=== PATIENT | male | born 1940 | race Caucasian/White ===

== ENCOUNTER → 2016-09-20 | Emergency (ER) | payer MEDICARE ==
[~2016-09-20] MED LIST: ACETAMINOPHEN650 M1; AMOXIL (BID DO875 MG PO; APRESOLINE25 MG PO; ASPIRIN LO-DOSE81 MG PO; ASPIRIN325 MG PO; ATORVASTATIN CA80 MG PO; CALCIUM ACETAT667 MG PO; CELEXA20 MG PO; CIPRO500 MG PO; COLACE100 MG PO; COREG12.5 MG PO; DETROL2 MG; DETROL2 MG PO; DIOVAN320 MG PO; DITROPAN XL5 MG PO; DULCOLAX10 MG; DULCOLAX10 MG R; FLOMAX0.4 MG PO; GLUCAGON 1 MG PE1 MG SUB-Q; GLUCAGON/GLUCAGE1 MG IM; GLUCAGON/GLUCAGE1 MG SUB-Q; GLUCOSE4 GM PO; GLYCOLAX527 GM PO; HUMALOG100 UNIT/1; HUMIBID LA (MU600 MG; HUMIBID LA (MU600 MG PO; HUMULIN R500 UNIT/M SUB-Q; HYDROCERIN)(MI236 ML TOP; HYGROTON25 MG PO; KAYEXALATE15 GM/60 M PO; LANTUS (IN100 UNIT/M SUB-Q; LASIX20 MG PO; LASIX40 MG PO; LEVEMIR100 UNIT/1 SUB-Q; LEVOTHROID (S200 MCG PO; LEVOTHROID (SY25 MCG PO; LEVOTHROID(SY175 MCG PO; LEVOTHYROXINE150 MCG PO; LIPITOR80 MG PO; LYRICA 50MG CAP50 MG PO; MILK OF MA400 MG/5 M PO; MIRALAX17 GM PO; MOTRIN800 MG PO; MYCOSTATIN OINT30 GM TOP; NEURONTIN100 MG PO; NITROSTAT0.4 MG SL; NORCO 5-325 MG1 TAB PO; NORCO 5-325 TA1 EACH; NORVASC10 MG PO; NORVASC2.5 MG PO; NORVASC5 MG PO; NOVOLIN-R100 UNIT/M; NOVOLIN-R100 UNIT/M SUB-Q; NOVOLOG100 UNIT/M SUB-Q; OCEAN NASAL) (A44 ML NOSE; OXYGEN M-15 INH; PHOSLO667 M1 PO; PHOSLO667 MG PO; PLAVIX75 MG PO; PRAVACHOL80 MG; PRAVACHOL80 MG PO; PROTONIX40 MG PO; PROVENTIL OR V6.7 GM; SENOKOT S (S1 TABLET PO; TOPROL XL 5050 MG PO; TYLENOL EXTRA500 MG PO; TYLENOL325 MG PO; VALIUM5 MG PO; VITAMIN D-32000 UNI1 PO; VITAMIN D1000 UNI1 PO; ZYLOPRIM100 MG PO; ZYLOPRIM300 MG PO; ZYRTEC10 MG
== END | disposition disaster alternative care site (69) ==
LOC: GAMB 08:51
DX: S41.112A Laceration without foreign body of left upper arm, initial encounter (principal); S41.111A Laceration without foreign body of right upper arm, initial encounter; W19.XXXA Unspecified fall, initial encounter

== ENCOUNTER → 2016-10-08 | Emergency (ER) | payer MEDICARE | END | disposition disaster alternative care site (69) | LOC: GAMB 20:48 | DX: R53.1 Weakness (principal) ==

== ENCOUNTER → 2016-10-08 | Emergency (ER) | payer MEDICARE | END | disposition disaster alternative care site (69) | LOC: GAMB 20:10 | DX: R53.1 Weakness (principal) ==

== ENCOUNTER → 2016-10-10 | Emergency (ER) | payer MEDICARE | END | disposition disaster alternative care site (69) | LOC: GAMB 23:55 | DX: R53.1 Weakness (principal); W19.XXXA Unspecified fall, initial encounter ==

== ENCOUNTER → 2016-10-19 | Outpatient (CLI) | payer MEDICARE, MEDICAID | END | disposition disaster alternative care site (69) | LOC: GAMB 23:51 | DX: R55 Syncope and collapse (principal); E11.622 Type 2 diabetes mellitus with other skin ulcer; Z79.82 Long term (current) use of aspirin; Z79.4 Long term (current) use of insulin; Z96.0 Presence of urogenital implants; Z74.09 Other reduced mobility | CPT/HCPCS: A0425; A0429 ==

== ENCOUNTER 2016-10-20 00:36 | Emergency (ER) | payer MEDICARE, MEDICAID ==
--- NOTE | ~2016-10-20 | ER ---
PATIENT'S NAME: SATYA POON [facility] AGE: 76 Y [address] ROOM: [place] [address] LOCATION: [facility] ADMIT DATE: 10/20/2016 ER/Outpatient Report DISCHARGE DATE: 10/20/2016 FAMILY PHYSICIAN: Physician, Unknown ATTENDING PHYSICIAN: Forest Mathis Time of Arrival: Admission date and time documented on the medical record. Time of Evaluation: I saw the patient at 0050 hours. CHIEF COMPLAINT: Syncopal episode. HISTORY OF PRESENT ILLNESS: This patient is a 76-year-old male, who was at home, had a syncopal episode that lasted about 10 to 15 seconds. He was moving from wheelchair to the bed with a lift and had the sudden onset of syncope. Paramedics were dispatched, they brought the patient into the emergency room for evaluation by ambulance. He did have bowel incontinence. Does have a suprapubic catheter. Blood sugar was 95. On arrival, the patient was awake, responsive. Had no chest pain, shortness of breath, or abdominal pain. He was not nauseated; had no vomiting. Does not feel lightheaded or dizzy. No recent cough, cold, flus, fever, chills, or sweats. Did not feel like anything was coming on, but does not remember what happened. The patient does have multiple medical problems. He does have insulin-dependent diabetes mellitus type 2 and hypothyroidism. He has had a CVA and TIA. No seizure. No neuro changes. Does have gout and degenerative osteoarthritis. No skin eruptions or rash, but does have some venous insufficiency. Because of diabetes, he has peripheral neuropathy, retinopathy, and nephropathy. HOME MEDICATIONS: See attached medication list. ALLERGIES: NONE. SOCIAL HISTORY: Nonsmoker. Does drink alcohol. SIGNIFICANT PAST MEDICAL HISTORY: Carotid occlusive disease; atherosclerotic ischemic heart disease with coronary artery disease; insulin-dependent diabetes mellitus type 2; nocturnal hypoxemia; obstructive sleep apnea; diabetic peripheral neuropathy, retinopathy, and nephropathy; benign prostatic hypertrophy; CVA; TIA; dyslipidemia; peripheral vascular disease; hypothyroidism; venous insufficiency; hypertension; exogenous obesity; chronic kidney disease, stage PATIENT'S NAME: SATYA POON [facility] AGE: 76 Y [address] ROOM: [place] [address] LOCATION: [facility] ADMIT DATE: 10/20/2016 ER/Outpatient Report DISCHARGE DATE: 10/20/2016 FAMILY PHYSICIAN: Physician, Unknown ATTENDING PHYSICIAN: Forest Mathis 4; chronic low back pain; degenerative osteoarthritis; and renal tubular acidosis. OPERATIONS: Bladder aspiration, suprapubic cystostomy, 4-vessel coronary bypass graft, cardiac catheterization, cataract surgery, anal surgery, right carotid endarterectomy, spinal diskectomy, and tonsillectomy. REVIEW OF SYSTEMS: All systems reviewed by me are negative with the exception of those discussed in the history of present illness. PHYSICAL EXAMINATION: VITAL SIGNS: Temperature 98, pulse 107, respirations 16, blood pressure 123/60, and O2 saturation on room air is 88% on room air. Carlos Coma Scale was 15. HEAD: Normocephalic. No abrasion, contusion, laceration, or swelling of the scalp or face. EYES: Extraocular muscles intact. PERRL. EARS, NOSE, AND THROAT: Clear. Mucous membranes moist. NECK: Negative. SPINE: Negative. LUNGS: Clear. HEART: Regular. Pulses are palpable. ABDOMEN: Obese, soft, nondistended, nontender. Active bowel tones. No organomegaly or abnormal mass palpable. EXTREMITIES: Does have skin problems on his lower extremities. No deformity. NEURO: Intact. LABORATORY DATA AND X-RAYS: Procalcitonin 0.1. ProBNP was 811. TSH was 109. CRP was 2.67. CMS was normal except for an elevated CO2 content of 33, low anion gap of 8.7, low glucose of 62, elevated BUN of 55, elevated creatinine of 2.4, low GFR of 26, magnesium 2.4, CPK was 106. Nbhgs-te-exkh cardiac enzymes were normal. White count was 8500, 77 segs, 7 lymphs, 9 monos, 6 eos, 1 baso; hemoglobin was 14.3 with hematocrit 44.1; platelet count was 237,000. PTT was 30, pro-time was 10 with an INR of 0.95. Serum acetone was negative. Sedimentation rate was 78. Venous pH was 7.51. Lactate was 1.5. EKG showed sinus rhythm. No acute ST elevation, ischemic change, or arrhythmia. Chest x-ray showed no acute infiltrate or changes. EMERGENCY DEPARTMENT COURSE: Did give the patient 1 amp of D50 IV here in the emergency department. IMPRESSION: PATIENT'S NAME: SATYA POON [facility] AGE: 76 Y [address] ROOM: [place] [address] LOCATION: ED ADMIT DATE: 10/20/2016 ER/Outpatient Report DISCHARGE DATE: 10/20/2016 FAMILY PHYSICIAN: Physician, Unknown ATTENDING PHYSICIAN: Forest Mathis 1. Syncopal episode. 2. Insulin-dependent diabetes mellitus type 2 with some hypoglycemia. 3. Hypothyroidism, TSH was 109. 4. Diabetic peripheral neuropathy, retinopathy, and nephropathy. 5. Atherosclerotic ischemic heart disease with coronary artery disease. 6. Carotid occlusive disease. 7. Peripheral vascular disease. 8. Peripheral venous insufficiency. 9. Dyslipidemia. 10. Hypertension. 11. Chronic kidney disease, stage 4. PLAN: The patient dismissed home. Observation. Activity as tolerated. Continue present home medications and care. Follow up with personal physician in 1 to 2 days. Discussion ensued with the patient and his concerning my findings and recommendations, they understand. FOREST MATHIS MD SDS/modl /[id number] d: 10/20/16629 t: 10/22/16611, OUTPATIENT REPORT
[~2016-10-20 00:36] MED LIST changes: -ACETAMINOPHEN650 M1; -CELEXA20 MG PO; -GLUCAGON 1 MG PE1 MG SUB-Q; -LEVOTHROID (SY25 MCG PO; -MOTRIN800 MG PO; -NITROSTAT0.4 MG SL; -NORCO 5-325 TA1 EACH; -PROTONIX40 MG PO; -PROVENTIL OR V6.7 GM
[2016-10-20 01:04] LABS: BICARBONATE 34.3 mmol/L (18.0-23.0); LACTATE 1.5 mEq/L (0.50-1.60); PCO2 43 mmHg (35-45); PO2 61 mmHg (80-90)
[2016-10-20 01:05] LABS: BASOPHIL # 0.1 K/uL (0.0-0.2); BASOPHIL % 0.7 %; EOSINOPHIL # 0.5 K/uL (0.0-0.5); HEMATOCRIT 44.1 % (37.0-53.0); HEMOGLOBIN 14.3 g/dL (11.0-16.0); IMMATURE GRANULOCYTE # 0.1 K/uL (0.0-0.3); IMMATURE GRANULOCYTE % 0.8 %; LYMPHOCYTE # 0.6 K/uL (0.8-4.0); LYMPHOCYTE % 6.8 %; MCH 28.7 pg (27.0-34.0); MCHC 32.4 gm/dL (32.0-36.5); MCV 88.4 fl (83.0-98.0); MONOCYTE # 0.8 K/uL (0.0-1.0); MONOCYTE % 9.1 %; MPV 9.1 fl (9.4-12.4); NEUTROPHIL # (ANC) 6.5 K/uL (1.4-9.0); NEUTROPHIL % 76.6 %; NRBC % 0 /100WBC (0-0.00); PLATELET COUNT 237 K/uL (150-450); RBC 4.99 M/uL (3.50-5.50); RDW-CV 14.2 % (11.9-14.6); WBC 8.5 K/uL (4.0-11.0)
[2016-10-20 01:21] LABS: INR - (THERAPEUTIC) 0.95 (0.92-1.07); PTT 30 SECONDS (25-32)
[2016-10-20 01:27] LABS: ALBUMIN 2.6 gm/dL (3.5-5.0); ALK PHOS 53 IU/L (33-138); ALT 22 IU/L (12-78); ANION GAP 8.7 (10.0-19.0); AST 22 IU/L (10-40); CALCIUM 9.3 mg/dL (8.5-10.5); CHLORIDE 100 mMol/L (96-110); CO2 33 mMol/L (22-32); CPK 106 IU/L (35-332); CREATININE 2.4 mg/dL (0.6-1.3); ESTIMATED GFR (MDRD EQUATION) 26; MAGNESIUM 2.4 mg/dL (1.8-2.6); POTASSIUM 3.7 mMol/L (3.7-5.1); SODIUM 138 mMol/L (135-145); TOTAL BILIRUBIN 0.4 mg/dL (0.0-1.5); TOTAL PROTEIN 6.5 g/dL (6.0-8.4)
[2016-10-20 01:28] LABS: BLOOD UREA NITROGEN 55 mg/dL (6-24)
[2016-12-22] MEDS ORDERED: CELEXA20 MG PO (16:01)
[2016-12-22] MEDS ORDERED: PROTONIX40 MG PO (16:02)
[2016-12-22] MEDS ORDERED: VITAMIN D-32000 UNI1 PO ×2 (16:03→16:04)
[2016-12-22] MEDS ORDERED: DULCOLAX10 MG R (16:08)
[2016-12-22] MEDS ORDERED: GLUCAGON 1 MG PE1 MG SUB-Q (16:08)
[2016-12-22] MEDS ORDERED: MILK OF MA400 MG/5 M PO (16:08)
[2016-12-22] MEDS ORDERED: GLUCOSE4 GM PO (16:09)
[2016-12-22] MEDS ORDERED: NITROSTAT0.4 MG SL (16:10)
[2016-12-22] MEDS ORDERED: NORCO 5-325 TA1 EACH (16:11)
[2016-12-22] MEDS ORDERED: ACETAMINOPHEN650 M1 (16:11)
[2016-12-22] MEDS ORDERED: PROVENTIL OR V6.7 GM (16:12)
[2016-12-22] MEDS ORDERED: COLACE100 MG PO (16:13)
== END 2016-10-20 04:31 | disposition disaster alternative care site (69) ==
LOC: GMED 00:36
PROVIDERS: Emergency Medicine
DX: R55 Syncope and collapse (principal); I12.9 Hypertensive chronic kidney disease with stage 1 through stage 4 chronic kidney disease, or unspecified chronic kidney disease; E11.22 Type 2 diabetes mellitus with diabetic chronic kidney disease; N18.4 Chronic kidney disease, stage 4 (severe); I73.9 Peripheral vascular disease, unspecified; I25.10 Atherosclerotic heart disease of native coronary artery without angina pectoris; N40.0 Benign prostatic hyperplasia without lower urinary tract symptoms; E03.9 Hypothyroidism, unspecified; E11.21 Type 2 diabetes mellitus with diabetic nephropathy; E11.319 Type 2 diabetes mellitus with unspecified diabetic retinopathy without macular edema; E11.42 Type 2 diabetes mellitus with diabetic polyneuropathy; E11.649 Type 2 diabetes mellitus with hypoglycemia without coma; E66.9 Obesity, unspecified; Z86.73 Personal history of transient ischemic attack (TIA), and cerebral infarction without residual deficits; Z95.1 Presence of aortocoronary bypass graft; Z79.4 Long term (current) use of insulin; Z79.82 Long term (current) use of aspirin; Z79.899 Other long term (current) drug therapy; Z90.89 Acquired absence of other organs; Z98.49 Cataract extraction status, unspecified eye; Z98.890 Other specified postprocedural states

== ENCOUNTER → 2016-10-20 | Outpatient (CLI) | payer MEDICARE, MEDICAID | END | disposition disaster alternative care site (69) | LOC: GAMB 04:30 | DX: R53.1 Weakness (principal); E11.9 Type 2 diabetes mellitus without complications; Z79.4 Long term (current) use of insulin | CPT/HCPCS: A0425; A0428 ==

== ENCOUNTER 2016-11-01 11:27 | Emergency (ER) | payer MEDICARE ==
[~2016-11-01 11:27] MED LIST changes: -ACETAMINOPHEN650 M1; -CELEXA20 MG PO; -GLUCAGON 1 MG PE1 MG SUB-Q; -LEVOTHROID (SY25 MCG PO; -MOTRIN800 MG PO; -NITROSTAT0.4 MG SL; -NORCO 5-325 TA1 EACH; -PROTONIX40 MG PO; -PROVENTIL OR V6.7 GM
[2016-11-01] MEDS ORDERED: LEVEMIR100 UNIT/1 SUB-Q (23:14)
[2016-11-02] MEDS ORDERED: LEVOTHROID (SY25 MCG PO (07:10)
[2016-12-22] MEDS ORDERED: CELEXA20 MG PO (16:01)
[2016-12-22] MEDS ORDERED: PROTONIX40 MG PO (16:02)
[2016-12-22] MEDS ORDERED: VITAMIN D-32000 UNI1 PO ×2 (16:03→16:04)
[2016-12-22] MEDS ORDERED: MILK OF MA400 MG/5 M PO (16:08)
[2016-12-22] MEDS ORDERED: DULCOLAX10 MG R (16:08)
[2016-12-22] MEDS ORDERED: GLUCAGON 1 MG PE1 MG SUB-Q (16:08)
[2016-12-22] MEDS ORDERED: GLUCOSE4 GM PO (16:09)
[2016-12-22] MEDS ORDERED: NITROSTAT0.4 MG SL (16:10)
[2016-12-22] MEDS ORDERED: NORCO 5-325 TA1 EACH (16:11)
[2016-12-22] MEDS ORDERED: ACETAMINOPHEN650 M1 (16:11)
[2016-12-22] MEDS ORDERED: PROVENTIL OR V6.7 GM (16:12)
[2016-12-22] MEDS ORDERED: COLACE100 MG PO (16:13)
== END 2016-11-01 11:32 ==
LOC: GAMB 11:27
DX: R53.1 Weakness (principal); E11.9 Type 2 diabetes mellitus without complications; Z79.82 Long term (current) use of aspirin; Z79.4 Long term (current) use of insulin
CPT/HCPCS: A0422; A0425; A0427

== ENCOUNTER 2016-11-01 11:42 | Inpatient (IN) | payer MEDICARE, MEDICAID ==
[~2016-11-01] VITALS: Ht 152.4 cm; Wt 114.4 kg
--- NOTE | ~2016-11-01 | CON ---
PATIENT'S NAME: SATYA POON [facility] AGE: 76 Y [address] ROOM: [address] [address] LOCATION: GICU ADMIT DATE: 11/01/2016 Consultation DISCHARGE DATE: FAMILY PHYSICIAN: Tom Drake MD ATTENDING PHYSICIAN: Nj Kline DATE OF CONSULTATION: 11/02/2016 REFERRING PHYSICIAN: HOLLY MARCH MD REASON FOR CONSULT: Necrotic ulcerations to bilateral legs. HISTORY OF PRESENTING ILLNESS: This is a 76-year-old male, currently admitted to [facility]. The patient presented to the emergency room on 11/01/2016. The patient was at home with his , felt like he was not arousing like normal. An ambulance was called and the patient was found to be hypoxic with oxygen saturations of 75%. He was lethargic, poorly responding and listless and was brought to the emergency room for further evaluation. The patient has a significant medical history including coronary artery disease, stroke, diabetes mellitus type 2, peripheral vascular disease, and chronic wounds on his bilateral legs that he has had treated with Wound Care as an outpatient. The patient has had Unna boot applications. History of venous insufficiency with venous stasis dermatitis. It is reported that the patient has had wounds to his legs that developed around October 12. The patient has a smoking history but he quit approximately 50 years ago and his smoking history only lasted 3 months. Vascular surgery is familiar with the patient as we performed a right carotid endarterectomy in November of 2015. It is difficult to get a history and review of systems during the examination as patient is lethargic and confused about the situation. The patient reports weakness and some shortness of breath. It is noted that the patient has mostly been nonambulatory. He denies any abdominal pain, nausea, vomiting, or diarrhea. Unable to assess for claudication as the patient has not recently been ambulating. He does report a heaviness to his legs. The patient does have a history of TIA and stroke. Denies any known history of DVT. The patient chronically with an indwelling catheter. PAST MEDICAL HISTORY: 1. Diabetes mellitus, type 2. 2. Peripheral neuropathy. 3. Diabetic retinopathy. 4. BPH. 5. CVA with right-sided hemiparalysis. 6. TIA. 7. Hyperlipidemia. PATIENT'S NAME: SATYA POON [facility] AGE: 76 Y [address] ROOM: [place] [address] LOCATION: [facility] ADMIT DATE: 11/01/2016 Consultation DISCHARGE DATE: FAMILY PHYSICIAN: Tom Drake MD ATTENDING PHYSICIAN: Nj Kline 8. Peripheral vascular disease. 9. Hypothyroidism. 10. Gout. 11. Obstructive sleep apnea. 12. Venous insufficiency. 13. Coronary artery disease. 14. Carotid artery stenosis. 15. Hypertension. 16. Morbid obesity. 17. Chronic kidney disease, stage 3 to 4. 18. Chronic low back pain. 19. Diabetic neuropathy. 20. Osteoarthritis. 21. Renal tubular acidosis. PAST SURGICAL HISTORY: 1. Previous anal surgery. 2. Bladder aspiration. 3. Placement of suprapubic catheter. 4. Coronary artery bypass grafting x4 vessels. 5. Cardiac catheterization. 6. Cataract surgery. 7. Right carotid endarterectomy with bovine pericardial patch. 8. Cervical diskectomy in C4-C5 and C5-C6. 9. Tonsillectomy. FAMILY HISTORY: Mother with history of stroke, coronary artery disease in father, and sister with diabetes. SOCIAL HISTORY: The patient lives with his , Audrey, in [place]. He quit smoking 50 years ago and approximately only 3 months of tobacco abuse per pipe. He denies any alcohol use. The patient is relatively nonambulatory. CURRENT MEDICATIONS: See medication reconciliation. The patient was on aspirin, Plavix, and atorvastatin prior to admission. ALLERGIES: CEPHALEXIN. REVIEW OF SYSTEMS: Have been completed and pertinent positives are addressed in history of presenting illness. All other review of systems are negative. PATIENT'S NAME: SATYA POON [facility] AGE: 76 Y [address] ROOM: [place] [address] LOCATION: [facility] ADMIT DATE: 11/01/2016 Consultation DISCHARGE DATE: FAMILY PHYSICIAN: Tom Drake MD ATTENDING PHYSICIAN: Nj Kline PHYSICAL EXAMINATION: VITAL SIGNS: Temperature is 97.7, heart rate 60, respiratory rate 16, oxygen saturations 95%, blood pressure 122/58. GENERAL: The patient is alert. He is disoriented to place and confused about the situation. He is lethargic but answers questions. SKIN: Pale, warm, and dry. The patient has hyperpigmentation to lower extremities. Areas of ecchymosis to upper arms. The patient also has bilateral areas of necrosis, worse on the left leg. The patient has gangrenous appearing heel that extends to his forefoot. Legs are malodorous. The patient also with a black eschar to the right lateral malleolus, right heel, and right anterior ankle. Maddy-wounds are erythemic. HEENT. Head: Normocephalic and atraumatic. Ears: Without drainage. Eyes: Sclerae white. Conjunctivae pink. Nose: Without drainage. Throat: Oral mucosa pink and moist. NECK: Without adenopathy. No carotid bruit. Trachea midline. RESPIRATORY: Clear to auscultation bilaterally, even and nonlabored. CARDIOVASCULAR: Regular rate and rhythm. No murmur or extra sounds. GASTROINTESTINAL: Bowel sounds active x4. Soft and nontender. EXTREMITIES: Unable to palpate dorsalis pedis or posterior tibialis. Pulses sound monophasic on bedside Doppler. The patient with 1 to 2+ edema bilaterally. Areas of critical limb ischemia with necrosis. NEUROLOGIC: Delayed mentation. Oriented to self. Strength is weak bilaterally to lower extremities, 2/5. DIAGNOSTICS: Chemistry: Sodium 141, potassium 4.6, chloride 99, CO2 36, BUN 77, creatinine 2.5, glucose 322. Hematology: White blood cell count 15.1, hemoglobin 12.7, hematocrit 41.2, platelets 208. Procalcitonin 1.33. Hemoglobin A1c 11.8. IMPRESSION AND PLAN: Bilateral lower extremity gangrene. The patient is admitted for acute encephalopathy and acute hypoxic respiratory failure. The patient has mixed venous and arterial disease. At this point in time, we would be unable to salvage the patient's left leg due to extent of gangrene and infection. The patient will require a left kqhse-ahi-pofh amputation. We have discussed this with the patient's over the phone and she is in agreement with this plan. Dr. March has met with the and the patient and discussed risks and benefits. The patient will also have debridement of right leg necrotic areas in hopes to save this extremity as he has infection bilaterally. The patient has continued on IV antibiotics. He is to remain n.p.o. and plan for surgery today with Dr. March. After surgery, we will move forward with arterial studies of the right lower extremity for better understanding of the extent of peripheral vascular disease. I would recommend resuming Plavix, aspirin, and atorvastatin while in the hospital. The patient with known venous insufficiency, however, due to possible severity of PATIENT'S NAME: SATYA POON [facility] AGE: 76 Y [address] ROOM: [place] [address] LOCATION: [facility] ADMIT DATE: 11/01/2016 Consultation DISCHARGE DATE: FAMILY PHYSICIAN: Tom Drake MD ATTENDING PHYSICIAN: Nj Kline peripheral vascular disease, this makes it difficult to continue compressing. Thank you for your consultation and for allowing us to participate in the care of this patient. TERI RANDOLPH SAMS FOR HOLLY MARCH MD TO/modl /[id number] d: 11/02/16 1510 t: 12/16/16 1720, CONSULTATION REPORT
--- NOTE | ~2016-11-01 | OR ---
PATIENT'S NAME: SATYA POON [facility] AGE: 76 Y [address] ROOM: [address] [address] LOCATION: [facility] ADMIT DATE: 11/01/2016 OR/Procedure Report DISCHARGE DATE: FAMILY PHYSICIAN: Tom Drake MD ATTENDING PHYSICIAN: Nj Kline SURGEON: Gary March MD CERAMIC RESTORER: DATE OF PROCEDURE: 11/02/2016 PREOPERATIVE DIAGNOSIS: Necrotic left leg as well as necrotic right foot. PROCEDURE: Left above-knee amputation and right foot debridement. GROUP DIRECTOR: Medical student, Jeanie cole. ANESTHESIA: General. ESTIMATED BLOOD LOSS: 500 mL. OPERATIVE FINDINGS: Healthy flaps on the BKA side and on the right foot, extensive infection likely down to bone. The patient will likely require an amputation of this side as well. DESCRIPTION OF PROCEDURE: The patient was brought to the operating room and placed supine on the operating table, placed under general anesthesia. Prepped and draped in a sterile manner. The patient had received antibiotics on the floor. Preoperative time-out was performed. We began by first prepping and draping for the above-knee amputation of the left. We then made a standard fishmouth incision. We used a Bovie cautery to transect all soft tissue. We identified all small vascular structures which were then ligated and transected. We then identified the superficial femoral artery and vein which were then suture ligated with Vicryl ties separately. We then transected the sciatic nerve and then removed all the posterior soft tissue using Bovie cautery. We then used a periosteal elevator to remove the soft tissue from the bone and then transected the bone with a reticulating saw. We then copiously irrigated the wound. We achieved hemostasis with suture ligatures and then reapproximated the anterior and posterior flaps using 2-0 Vicryl. Skin was closed with randee. We then covered this wound sterilely and then removed the drapes and then prepped and draped the right foot the patient had a necrotic lesion on the dorsum of the foot, the heal, and then the lateral malleolus aspect. We sharply debrided all soft tissue with necrotic tissue and it appeared as though this infection was going to the bone we removed as many is as much tissue as we could we took cultures we then we then still the wounds with Dakin-soaked solution and wrapped in Kerlix and an Brigido. The patient tolerated the procedure well and transferred to the recovery PATIENT'S NAME: SATYA POON [facility] AGE: 76 Y [address] [place]: [id number] [place] [address] LOCATION: [facility] ADMIT DATE: 11/01/2016 OR/Procedure Report DISCHARGE DATE: FAMILY PHYSICIAN: Tom Drake MD ATTENDING PHYSICIAN: Nj Kline room and to the Surgical ICU. GARY MARCH MD FKJude/modl /[id number] d: 11/02/162239 t: 11/08/161811, OPERATIVE SUMMARY
--- NOTE | ~2016-11-01 | CON ---
PATIENT'S NAME: SATYA POON [facility] AGE: 76 Y [address] ROOM: [address] [place], [place] [address] LOCATION: GICU ADMIT DATE: 11/01/2016 Consultation DISCHARGE DATE: FAMILY PHYSICIAN: Tom Drake MD ATTENDING PHYSICIAN: Nj Kline DATE OF CONSULTATION: 11/03/2016 REFERRING PHYSICIAN: HOLLY MARCH MD This is a [facility] Nephrology consultation. REASON FOR CONSULTATION: Fluid overload. HISTORY OF PRESENT ILLNESS: This is a 76-year-old male patient with a history of hypertension, diabetes mellitus, poorly-controlled, CKD, stage 4 with diabetic nephropathy, chronically noncompliant patient who is admitted with a diabetic foot ulceration of the left foot. The patient is status post left munxa-crq-thyx amputation with Dr. March on 11/02/2016 at the time of exam. The patient does also now present with right foot infection possibly requiring a right amputation in the near future. The patient's baseline creatinine is between 2.4 and 2.5. The patient's creatinine on admission was elevated to 2.9 and now is improved to 1.9. Echocardiogram was performed showing severe right heart failure with pulmonary pressures of 45 mmHg. Nephrology has been consulted for the patient's fluid volume overload. The patient continues to have reasonable urine output of approximately 3 L in the last 24 hours. He does however to be net positive. At the time of exam, the patient is confused and lethargic. He does awaken his eyes and appropriately respond when called. He is currently on Dilaudid for pain as well as Lyrica that he was prescribed as an outpatient. This is being held now. PAST MEDICAL HISTORY: As listed above includin. Coronary artery disease. 2. Chronic diastolic congestive heart failure. 3. Obstructive sleep apnea. 4. Morbid obesity. 5. Type 2 diabetes, poorly-controlled. 6. Essential hypertension. 7. History of CVA. 8. BPH. 9. Peripheral vascular disease, status post left AKA. 10. TIA. 11. Hyperlipidemia. 12. Hypothyroidism. 13. Gout. 14. Venous insufficiency. 15. Carotid artery stenosis. 16. CKD, stage 4. 17. Chronic low back pain. 18. Neuropathy. 19. Diabetic nephropathy. 20. Osteoarthritis. 21. History of renal tubular acidosis.PATIENT'S NAME: SATYA POON [facility] AGE: 76 Y [address] ROOM: [place] [address] LOCATION: GICU ADMIT DATE: 11/01/2016 Consultation DISCHARGE DATE: FAMILY PHYSICIAN: Tom Drake MD ATTENDING PHYSICIAN: Nj Kline PAST SURGICAL HISTORY: 1. Anal surgery. 2. Bladder aspiration. 3. Placement of suprapubic catheter. 4. Coronary artery bypass grafting surgery x4 vessels. 5. Left heart catheterization. 6. Cataract surgery. 7. Right carotid endarterectomy with bovine pericardial patch. 8. Spinal diskectomy. 9. Tonsillectomy. 10. Left vcrqx-oyl-mdqo amputation. FAMILY HISTORY: Reviewed and is noncontributory. There is no history of renal disease or dialysis. SOCIAL HISTORY: The patient does live at home with his . She is his primary caregiver. He is a past smoker and quit approximately 50 years ago. Denies any illicit drug use or alcohol use. He is nonambulatory at home. ALLERGIES: CEPHALEXIN. CURRENT HOME MEDICATIONS: Are reviewed: 1. Aspirin 81 mg daily. 2. Colace 100 mg twice a day. 3. Coreg 25 mg twice a day. 4. Lyrica 50 mg twice a day. 5. Norvasc 5 mg daily at bedtime. 6. Plavix 75 mg daily. 7. Oxygen. 8. Zyloprim 300 mg daily. 9. PhosLo 667 mg twice a day with food. 10. Vitamin D3 2000 units daily. 11. Atorvastatin 80 mg daily. 12. Lasix 40 mg daily in the morning. 13. Levemir 65 units subcu every morning. 14. Levothyroxine 225 mcg daily. 15. NovoLog 30 units subcu t.i.d. with meals. 16. Ditropan 10 mg daily. 17. MiraLAX 17 g daily. 18. Levemir 55 units subcu every night.PATIENT'S NAME: SATYA POON [facility] AGE: 76 Y [address] ROOM: [place] [address] LOCATION: GICU ADMIT DATE: 11/01/2016 Consultation DISCHARGE DATE: FAMILY PHYSICIAN: Tom Drake MD ATTENDING PHYSICIAN: Nj Kline REVIEW OF SYSTEMS: Unable to obtain a full review of systems due to the patient's current cognitive status. He is quite somnolent. Family is unable to offer any other concerns other than what is listed in the HPI. PHYSICAL EXAMINATION: VITAL SIGNS: Blood pressure is 109/53, pulse 81, respirations 19, temp 97.8, and sats are 92% on 5 L nasal cannula. GENERAL: On exam, this is an obese white male who is somnolent. He does reorient when he is awakened. HEENT: His head is normocephalic and atraumatic. Nose: Midline. Mouth: Oral mucosa is dry. Lips are peeling. NECK: Soft and supple, thick. LUNGS: Lung sounds are diminished in the bases bilaterally. The patient is on 3 L nasal cannula. CARDIOVASCULAR: Distant heart tones noted with regular S1 and S2. Unable to appreciate any murmurs, rubs, or thrills. ABDOMEN: Obese. Bowel sounds are positive. EXTREMITIES: Left dsblq-ekn-pmsi amputation and right lower extremity dressing is applied with clean, dry, and intact. LABORATORY DATA: Hemoglobin 8.8, hematocrit 28.5, WBC is 11.1, and platelets 201. Sodium 149, potassium 4.1, chloride is 111, CO2 is 33, BUN is 70, creatinine 1.9, and glucose is 201. ASSESSMENT AND PLAN: 1. Jkstr-yj-pxpecil diastolic heart failure. The patient does appear to be hypervolemic on exam. The patient's acute kidney injury has improved after his left qvpaj-mwr-abur amputation. Creatinine was 2.9, is now down to 2.1, now 1.9. We will use a small-dose of diuretic tonight and monitor his in's and out's closely. We will place him on daily weights and monitor his fluid balance. We will closely monitor his renal function in the interim. We will obtain a urinalysis for urine potassium, urine sodium, and urinary creatinine. We will also obtain a protein-creatinine ratio secondary to his history of diabetic nephropathy. Further recommendations will be forthcoming. 2. Peripheral vascular disease, status post left phpmp-bpo-dqdc amputation per Dr. March. The patient is currently on vancomycin for antibiotic therapy. He is also taking meropenem. We do caution to monitor his creatinine closely as he presented with acute kidney injury. Infectious Disease was consulted and will be seeing later today. 3. Diabetes mellitus type 2. The patient is to continue his Levemir as previously prescribed. This patient has been seen and assessed by Dr. Reina. His care is being conducted in consultation with Dr. Reina as well as me. We will plan further recommendations as they are forthcoming. SHANAE CURRY DNP, GARAGE MANAGER FOR [facility] KEVIN REINA MD ENS/modl /[id number] d: 11/04/16 0023 t: 12/17/16 0947, CONSULTATION REPORT
--- NOTE | ~2016-11-01 | DS ---
PATIENT'S NAME: SATYA POON [facility] AGE: 76 Y [address] ROOM: [address] [place], [place] [address] LOCATION: [facility] [place] ADMIT DATE: 11/01/2016 Discharge Summary DISCHARGE DATE: 12/08/2016 FAMILY PHYSICIAN: Tom Drake MD ATTENDING PHYSICIAN: Nj Kline DISCHARGE DIAGNOSES: 1. Sepsis secondary to left lower extremity gangrene, status post left above- the-knee amputation. 2. Right foot gangrene and critical limb ischemia, status post debridement with wound VAC placement. 3. Right foot osteomyelitis. 4. Peripheral vascular disease. 5. Diabetes mellitus type 2, with hyperglycemia. 6. Obstructive sleep apnea, noncompliant with CPAP. 7. Chronic kidney disease stage 3. 8. Acute on chronic diastolic congestive heart failure. 9. Physical deconditioning. 10. Chronic hypoxic respiratory failure. 11. Essential hypertension. CONSULTING PHYSICIANS: Dr. March, Dr. Reina, and Wound Care. PROCEDURES PERFORMED: 1. Left lwsjt-bcu-ehqb amputation done 11/02/2016. 2. Right foot debridement done 11/02/2016. 3. Aortogram with right lower extremity angiogram. 4. Anterior tibial and posterior tibial occlusions recanalized and angioplastied done 11/09/2016. 5. Wound VAC application of right lower foot. HOSPITAL COURSE: Please refer to admitting history and physical as dictated by Dr. Kline. Briefly, the patient was admitted to [facility] with acute hypoxic respiratory failure and acute encephalopathy. He is noncompliant with the CPAP at home. He was started on supplemental oxygen. His acute encephalopathy did improve with oxygen. He was found to have acute on chronic diastolic congestive heart failure. He was started on IV Bumex. He was also noted to have acute kidney injury on chronic kidney disease stage III. Suprapubic catheter was continued. Renal ultrasound was obtained. Due to the patient's leg ulcers, Wound Care and Vascular Surgery were consulted. Echocardiogram showed an EF of 60% to 65%. The patient was found to have hyperglycemia with his diabetes mellitus. Sugars gradually came down throughout his stay with titration of medications. Due to the patient's left lower extremity gangrene, he was started on IV meropenem. Heparin was used for DVT prophylaxis. Vancomycin was then added. PATIENT'S NAME: SATYA POON [facility] AGE: 76 Y [address] ROOM: [id number] [place], [place] [address] LOCATION: [facility] [place] ADMIT DATE: 11/01/2016 Discharge Summary DISCHARGE DATE: 12/08/2016 FAMILY PHYSICIAN: Tom Drake MD ATTENDING PHYSICIAN: Nj Kline Diuresis was performed. Dr. March did see the patient and felt he was unable to salvage the left leg. Therefore, isvaa-qtl-ddwp amputation and debridement of a right lower extremity wound took place on 11/02/2016. Postoperatively, he did have hypotension. Antibiotics were continued. He was transferred to the ICU for his hypotension. His blood pressures did gradually improve. He was able to be weaned off vasopressors. He was continued on Plavix and aspirin for his peripheral vascular disease. Due to his fluid volume overload and acute kidney injury, Renal consultation was obtained. They did follow the patient throughout his stay. Infectious Disease also followed the patient throughout his stay. He was gradually diuresed. The patient did require a unit of packed red blood cells postoperatively. Would cultures from surgery did grow E coli and Enterobacter and Streptococcus agalactiae Group B. His meropenem was stopped. He was placed on Rocephin. Pain gradually improved. The patient did continue to refuse CPAP when asleep. Therefore, oxygen was used to keep his saturations greater than 90%. Speech Therapy did see him and recommended nectar-thick diet. He on 11/07/2016, did develop decreased respiratory rate and somnolence. He was given Narcan. Narcotics were discontinued. He was noted to have worsening leukocytosis that was questionable about aspiration versus the lower extremity wound. Aortogram and right leg angiogram were performed on 11/09/2016. Tramadol was used for pain. Physical Therapy and Occupational Therapy were consulted. The patient did stabilize, his kidneys did improve, and creatinine was stable. His hyperglycemia did improve with titration of his insulin dosages. He was not able to be able to return home. Therefore, care management did work with the patient and family for placement. Paperwork did need to be obtained, which did hinder discharge to a half-way facility. The patient's mental status did improve. He was awake, alert, and oriented. He is able to wean off oxygen during the day by discharge. He was started on citalopram daily. IV antibiotics were discontinued. He was started on Levaquin 750 mg p.o. every 48 hours. Wound Care continued to follow throughout his stay and manage the wound VAC to the right lower extremity. Infectious Disease did see the patient, recommended to continue Levaquin until 12/14/2016, at which time it can be discontinued. Gradually, the patient improved. On 12/08/2016, the patient was awake, alert, and oriented x3. His vital signs were stable. He is no longer requiring oxygen. Placement was found at [facility] in [place]. It was recommended that he follow up with Dr. Drake in 5 days. Wound care in 3 weeks with Mini Davidson APRN to see at the same time, Infectious Disease at [facility] in 2 weeks, and Dermatology for left arm lesion. LABORATORY DATA: Sodium remained stable throughout his stay. Potassium was intermittently replaced on the day of discharge 4.3, calcium 9.3, BUN 85 on admit and 36 prior to discharge. Creatinine 2.0 on admit. It did go as high as 2.5, prior to discharge 1.9. Alkaline phosphatase 55, AST 19, ALT 15, phos 3.6, GFR 33 at discharge. Troponin 0.126. ProBNP 7812. WBC is 15.1 on admit, prior to discharge 9.6; hemoglobin dropped as low as 6.9, prior to discharge 9.6; hematocrit 30.9; platelets 179. C. diff negative. Urine: Kecia PATIENT'S NAME: SATYA POON [facility] AGE: 76 Y [address] ROOM: [address] [address] LOCATION: [facility] [place] ADMIT DATE: 11/01/2016 Discharge Summary DISCHARGE DATE: 12/08/2016 FAMILY PHYSICIAN: Tom Drake MD ATTENDING PHYSICIAN: Nj Kline parapsilosis, right foot culture, Enterobacter aerogenes, E coli, Streptococcus agalactiae Group B. RADIOLOGY REPORTS: CT of the head, mild periventricular small vessel ischemic changes and remote-appearing right basal ganglia lacunar infarct. No acute cortical ischemia or hemorrhage. Ultrasound of the kidney showed no findings of renal collecting system obstruction. Chest x-ray done 11/27/2016 showed mild bibasilar atelectasis or consolidation. DISCHARGE INSTRUCTIONS: The patient will be discharged to [facility] in [place], Dr. Drake. Dr. March to continue to follow. FOLLOWUP APPOINTMENTS: 1. Dermatology: Indication: Left arm lesion per choice of the patient. 2. Dr. Drake in 5 days. 3. Wound care in 3 weeks with Mini Davidson APRN, to see at the same time. 4. Infectious Disease at [facility] in 2 weeks. DIET: Diabetic, nectar liquids. WEIGHTBEARING: Full lift. THERAPIES: 1. PT, OT, ST to evaluate and treat as indicated. 2. Oxygen as needed to keep saturations greater than 90%. 2 L when asleep. 3. BMP, CBC 12/10/2016, results to Dr. Drake. TSH in 6 weeks. 4. Continue chronic indwelling suprapubic catheter. 5. See Wound Care notes. Reposition every 2 hours. Aloe Turon q.i.d. to buttocks. Iris cushion and chair. Elevate heels off bed services. Rehab potential is poor. Discharge potential is poor. DISCHARGE MEDICATIONS: 1. Allopurinol 300 mg p.o. daily. 2. Aspirin 81 mg p.o. daily. 3. Plavix 75 mg p.o. daily. 4. Atorvastatin 80 mg p.o. daily. 5. PhosLo 667 mg p.o. daily. 6. PhosLo 667 mg twice daily. 7. Coreg 12.5 mg p.o. twice daily, hold if systolic blood pressure is less than 110 or heart rate is less than 60. 8. Celexa 20 mg p.o. daily. 9. Lasix 20 mg p.o. daily. 10. NovoLog moderate sliding scale. 11. NovoLog 15 units subcu 3 times daily with meals. PATIENT'S NAME: SATYA POON [facility] AGE: 76 Y [address] ROOM: [address] [place] [id number] LOCATION: [facility] [place] ADMIT DATE: 11/01/2016 Discharge Summary DISCHARGE DATE: 12/08/2016 FAMILY PHYSICIAN: Tom Drake MD ATTENDING PHYSICIAN: Nj Kline 12. Levemir 26 units subcu every morning. 13. Levemir 40 units subcu q.h.s. 14. Levaquin 750 mg p.o. every 48 hours, stop after 12/14/2016 dose. 15. Levothyroxine at 220 mcg p.o. daily. 16. Protonix 40 mg p.o. daily. 17. MiraLAX 17 g p.o. twice daily. 18. Tylenol 650 mg p.o. every 4 hours as needed for pain. 19. Wellington 5/325 one tablet p.o. every 4 hours as needed for pain. 20. Dulcolax suppository 10 mg rectally every day p.r.n. constipation. 21. Benadryl 25 mg p.o. q.h.s. p.r.n. 22. Colace 100 mg p.o. twice daily as needed for constipation. 23. Glucagon 1 mg subcu for hypoglycemia. 24. Glucose 16 g p.o. for hypoglycemia. 25. Nitrostat 0.4 mg sublingual as needed. 26. Biotene mouthwash as needed. 27. Albuterol 2.5 mg inhalation every 4 hours as needed for shortness of breath. 28. Oxygen 2 L when asleep. 29. Vitamin D3 2000 units p.o. daily. 30. Ditropan 10 mg p.o. daily. Thank you for allowing us to participate in the care of this patient as he has been hospitalized at [facility]. GUILLE FINN APRN FOR MD TOMAS MCKEON/oziell /[id number] CC: MD Gary Herrera MD Abhisekh Sinha Ray, MD d: 12/09/16 0740 t: 12/14/16 1512, DISCHARGE SUMMARY
--- NOTE | ~2016-11-01 | CON ---
PATIENT'S NAME: SATYA POON [facility] AGE: 76 Y [address] ROOM: [place] [address] LOCATION: GICU ADMIT DATE: 11/01/2016 Consultation DISCHARGE DATE: FAMILY PHYSICIAN: Tom Drake MD ATTENDING PHYSICIAN: Nj Kline DATE OF CONSULTATION: 11/02/2016 REFERRING PHYSICIAN: Dr. Steward. REASON FOR CONSULT: Lower leg necrotic ulcers. HISTORY OF PRESENT ILLNESS: This is a 76-year-old male patient who was admitted to [facility] with sepsis. I am familiar with the patient and I saw him last week. He has a significant history of chronic diastolic congestive heart failure, peripheral vascular disease, CAD, and type 2 diabetes mellitus. He was brought to [facility] due to poor responsiveness and hypoxia. He notes he has been going downhill for the last couple of weeks. He is currently nonambulatory. Wound onset was October 12, 2016. Previously, we had been wrapping his legs with Unna boots and offloading with Podus footdrop boots. The patient does complain of lower leg pain, but is unable to rate it on a 0-10 scale. He is quite confused and did not know he was in the hospital. He notes weakness. He admits to shortness of breath. He has a suprapubic catheter. He is currently afebrile. PAST MEDICAL HISTORY: Coronary artery disease, chronic diastolic congestive heart failure, obstructive sleep apnea, morbid obesity, type 2 diabetes mellitus, essential hypertension, history of CVA, BPH, peripheral vascular disease, TIA, hyperlipidemia, hypothyroidism, gout, venous insufficiency, carotid artery stenosis, chronic kidney disease stage 3-4, chronic low back pain, neuropathy, osteoarthritis, and renal tubular acidosis. PAST SURGICAL HISTORY: Anal surgery, bladder aspiration, placement of suprapubic cath, coronary artery bypass grafting x4 vessels, cardiac catheterization, cataract surgery, right carotid endarterectomy with bovine pericardial patch, spinal diskectomy, and tonsillectomy. FAMILY HISTORY: Significant for coronary artery disease. PATIENT'S NAME: SATYA POON [facility] AGE: 76 Y [address] ROOM: [place] [address] LOCATION: GICU ADMIT DATE: 11/01/2016 Consultation DISCHARGE DATE: FAMILY PHYSICIAN: Tom Drake MD ATTENDING PHYSICIAN: Nj Kline SOCIAL HISTORY: The patient lives with his , Audrey, in [place]. 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 He quit smoking over 50 years ago. He denies alcohol use. He is nonambulatory. ALLERGIES: CEPHALEXIN. CURRENT MEDICATIONS: Please refer to the medication administration record. REVIEW OF SYSTEMS: I am unable to fully complete due to the patient being slightly disoriented. Please see HPI for further details. PHYSICAL EXAMINATION: VITAL SIGNS: Temperature 97.7, pulse 60, respirations 16, blood pressure 122/58, pulse oximetry 95% on 3 L. Height 5 feet 9 inches and weighs 122.9 kg. GENERAL: The patient is lethargic and slightly disoriented. He reorient when I told him he was in the hospital. Strong necrotic ulcer smell coming from lower legs. HEENT: Head: Normocephalic. Anicteric sclerae. Oral mucosa dry. Lips peeling. NECK: Obese. ABDOMEN: Soft. No groin fold rash. EXTREMITIES: Thready pedal pulses via Doppler. +1 pitting edema to ankles. Capillary refill intact. Hyperkeratotic lesions to toes. Some mycotic toenails. Dark hemosiderin staining to lower extremities. SKIN: Multiple necrotic ulcers noted. To the patient's left plantar foot from his second to fifth metatarsal head, he has a necrotic wound that measures 8.5 cm width x 7.0 cm length x 0.2 cm depth. Wound bed is 95% eschar with 5% yellow slough. Periwound is peeling. A small amount of bloody exudate. To the patient's left heel & foot, he has a large eschar area that measures 9.5 cm width x 14.0 cm length. The entire wound bed is covered with dry, hard eschar. Slightly fluctuant to touch. No exudate. Periwound peeling. To the patient's left dorsal foot, he has 5 small deep tissue injury purple areas that are closed. To the patient's left lower extremity anterior meyer, he has an ulcer that measures 4.0 cm width x 6.5 cm length x 0.2 cm depth. The wound bed is 50% yellow slough with 50% moist pink tissue. Periwound is intact with venous staining. Moderate amount of serosanguineous exudate. To the patient's right dorsal foot close to his ankle, he has a necrotic ulcer that measures 8.5 cm width x 1.7 cm length x 0.3 cm depth. Wound bed is a mixture of yellow slough and soft brown necrosis. Periwound is PATIENT'S NAME: SATYA POON [facility] AGE: 76 Y [address] ROOM: [address] [place], [place] [address] LOCATION: [facility] ADMIT DATE: 11/01/2016 Consultation DISCHARGE DATE: FAMILY PHYSICIAN: Tom Drake MD ATTENDING PHYSICIAN: Nj Kline slightly peeling. Small yellow exudate. To the patient's right lateral malleolus area, his wound measures 5.0 cm width x 6.3 cm length x 0.3 cm depth. Wound bed is hard, black eschar with 10% yellow slough around the distal perimeter. Periwound is erythemic, scant yellow exudate. To the patient's right lateral lower extremity, he has an ulcer that measures 1.5 cm width x 3.7 cm length x 0.3 cm depth. Wound bed is covered with yellow slough. Periwound is erythemic, draining a small amount of yellow exudate. To the patient's right lateral foot, he has 2 areas of deep tissue injury that are slightly fluctuant to touch. The patient's right heel eschar measures 4.0 cm width x 3.0 cm length x 0.2 cm depth. Periwound is slightly erythemic and peeling. No drainage. To the patient's right sacrum, he has a pressure ulcer that measures 2.0 cm width x 3.5 cm length x 0.3 cm depth. Wound bed is 70% yellow slough and soft brown necrosis with 30% moist pink tissue at the perimeter. Periwound is intact with blanchable erythema. No induration or fluctuance. Moderate amount of serosanguineous exudate. To the patient's right iliac crest/low back area he appears to have an open area. This was originally a deep tissue injury, but is now open. Wound bed measures 2.0 cm width x 0.5 cm length x 0.2 cm depth. Wound bed is maroon. Periwound intact. The patient's right calf measures 36.0 cm and right ankle 23.0 cm. The patient's left calf measures 37.0 cm and left ankle 23.0 cm. The patient's suprapubic catheter site has a pressure ulcer that is mostly yellow slough with a small amount of moist pink tissue. Scant serous exudate. Periwound intact, but slightly macerated. LABORATORY DATA: White blood cell count 15.1, hemoglobin 12.7, hematocrit 41.2, platelets 208. Sodium 141, potassium 4.6, chloride 99, bicarb 36, BUN 77, creatinine 2.5, glucose 322. GFR 24. ProBNP is 7812. Blood cultures, no growth to date. ASSESSMENT AND PLAN: Again, this is a 76-year-old male patient who was admitted to [facility] with sepsis. Wound Care consulted for multiple necrotic lower leg ulcers. 1. Right and left lower extremity necrotic wounds as listed above. Significant decline since I saw the patient last week. Wound beds are now necrotic & odorous. The patient has thready pulses. This appears to be a gangrenous case. Discussed with Dr. Steward. Consulted Dr. March for further evaluation. The patient will most likely need an amputation. For now, we covered the ulcers with dry gauze and Kerlix. We will offload with Podus footdrop boots. 2. Right sacral stage III full-thickness pressure ulcer, present on admission. Down to the subcutaneous layer. We will initiate pressure relief measures turning the patient in bed q.2 hours side to side. Nursing can apply Aloe Rufus q.i.d. and p.r.n. to the site. Dietary consult ordered. PATIENT'S NAME: SATYA POON [facility] AGE: 76 Y [address] ROOM: [place] [address] LOCATION: [facility] ADMIT DATE: 11/01/2016 Consultation DISCHARGE DATE: FAMILY PHYSICIAN: Tom Drake MD ATTENDING PHYSICIAN: Nj Kline 3. Suprapubic catheter device related full-thickness pressure ulcer. Wound bed is down to the subcutaneous layer. Tube stabilized. I instructed nursing to apply a fenestrated hydrocolloid sponge. 4. Acute encephalopathy secondary to hypoxia. Hospitalist is managing. The patient has significant wounds with obvious gangrene. He has also gone downhill in the last week since I have last seen him. I wish him good luck, but unfortunately he appears to have a poor prognosis. WILLARD RAO APRN FOR MD JAMEY JENKINS/siria /[id number] d: 11/03/16925 t: 12/16/16 1723, CONSULTATION REPORT
--- NOTE | ~2016-11-01 | CON ---
PATIENT'S NAME: SATYA CASTRO [facility] AGE: 76 Y [address] ROOM: [address] [place], [place] [address] LOCATION: GICU ADMIT DATE: 11/01/2016 Consultation DISCHARGE DATE: FAMILY PHYSICIAN: Tom Drake MD ATTENDING PHYSICIAN: Nj Kline DATE OF CONSULTATION: 11/03/2016 REFERRING PHYSICIAN: HOLLY BROWN MD REASON FOR VISIT: Gangrene, bilateral lower extremities, and sepsis. HISTORY: Mr. Castro is a 76-year-old male who has known history of vascular disease who presented to the hospital on 11/01/2016 with encephalopathy. He apparently had not been doing well for a while. Had some pressure ulcers on his legs and had been [facility], but he started to become more confused and not able to get aroused. He had not been compliant with his CPAP at home. In the emergency room, he was notably hypoxemic and confused. He was admitted to the hospital. There was not a clear source of sepsis but he was started on IV antibiotics. Apparently over time, his legs began to look worse and more necrotic and black. He was seen by vascular surgery and noted that his left leg was not salvageable and he had a right foot wound that went down into the bone. He underwent a left-sided AKA yesterday and a debridement of the right foot. He is a little better today, able to arouse, having pain in both of his legs. He is making more sense now. He has received a dose of vancomycin and he is on meropenem. His cultures have not shown anything as of yet. Infectious Disease has been asked to see him. PAST MEDICAL HISTORY: Significant for known peripheral vascular disease, type 2 diabetes, diastolic heart failure, cerebrovascular disease. He has had a CEA in the past, obstructive sleep apnea, morbid obesity, hypertension. He has had coronary disease with CABG, BPH, chronic venous stasis. MEDICATIONS: Reviewed. He has received a dose of vancomycin and he is on meropenem. FAMILY HISTORY: Significant for heart disease in his father. Mother suffered a stroke. SOCIAL HISTORY: He is . Lives in [place]. He did smoke a pipe in the past but has not done that for years. No alcohol use. PATIENT'S NAME: SATYA CASTRO [facility] AGE: 76 Y [address] ROOM: [address] [place], [place] [address] LOCATION: [facility] ADMIT DATE: 11/01/2016 Consultation DISCHARGE DATE: FAMILY PHYSICIAN: Tom Drake MD ATTENDING PHYSICIAN: Nj Kline REVIEW OF SYSTEMS: All remaining review of systems otherwise negative. Pertinent positives and negatives are in the HPI. PHYSICAL EXAMINATION: GENERAL: He does not look acutely ill. He does arouse and he answer simple questions and is more oriented, which is much improved from his baseline before. VITAL SIGNS: His T-max is 97.8, blood pressure is 107/59, pulse 65, respirations 12. HEENT: NC/AT, EOMI, PERRLA. He is on a CO2 monitor. Oropharynx is clear. NECK: Supple. LUNGS: Decreased breath sounds. HEART: Regular S1, S2. ABDOMEN: Soft. Does not appear tender. EXTREMITIES: His right foot is wrapped, the dressing is dry. His left AKA stump is wrapped with an Brigido. SKIN: Without rash. LABORATORY DATA: White count is 11.1, hemoglobin 8.8, platelet count 201. Sodium 149, potassium 4.1, chloride 111, bicarb 33, BUN 70, creatinine 1.9, glucose 201. Blood cultures are pending thus far and a wound culture is pending. The Gram stain from the wound had few white blood cells, rare epithelial cells, a small amount of amorphous material with no organisms. Chest x-ray showed suboptimal inspiration. ASSESSMENT: 1. Gangrene, bilateral lower extremities, status post left xbidl-akb-lpnr amputation and right foot debridement on 11/02/2016. 2. Osteo, right foot with wound to bone. 3. Peripheral vascular disease. 4. Sepsis. 5. Encephalopathy, which is improved. 6. Acute on chronic renal failure. 7. Multiple other medical problems. PLAN: Agree with broad-spectrum antimicrobials. He is currently on vancomycin and meropenem. He received a couple doses of vancomycin and given his renal failure, he is probably going to keep this around for a little while. As his creatinine improves, depending on where he settles out, may need to adjust his antibiotic course. We will get a random vancomycin level in the morning and see where his level is. If he has no MRSA on any cultures, can stop the vancomycin. We can continue him on the meropenem for now while we await other PATIENT'S NAME: SATYA CASTRO [facility] AGE: 76 Y [address] ROOM: [address] [place], [place] [address] LOCATION: [facility] ADMIT DATE: 11/01/2016 Consultation DISCHARGE DATE: FAMILY PHYSICIAN: Tom Drake MD ATTENDING PHYSICIAN: Nj Kline cultures and this provides good coverage broadly. His cephalexin allergies have been dubious and have apparently caused itching. I am not sure that this would mean that he could not use another type of beta-lactam as he is tolerating the meropenem. In any case, please call us based on what his cultures are and what is done. If he ends up having an amputation of the right foot, then he should not need a long course of antibiotics and thus he is bacteremic and would then require further treatment appropriately. If we are going to try to salvage the right foot, it sounds like he will need a course of IV antibiotics. However, salvaging the foot in this situation will require a multimodal approach and antibiotics alone will not suffice. Please call us with questions. MD INGRID HOOD/modl /[id number] d: 11/03/161813 t: 11/04/1614, CONSULTATION REPORT
--- NOTE | ~2016-11-01 | ECHO ---
Transthoracic Echocardiography Report (TTE) Demographics Patient Name SATYA POON Date of Study 11/02/2016 Patient Number [id number] Visit Number [id number] Date of 1940 Room Number [id number] Accession Number [id number] Gender Male Age 76 year(s) Referring Eliud Adams MD Land Developer Physician Noelle Paredes MD Physician Interpreting Ritika Duque MD Physics Technician Physician Supervising Ordering Physician Eliud Adams MD, MD/P Nurse Stress Digital Photo Printer Conclusions Contractility Score Summary Normal Left Ventricular contractility was noted. Summary The estimated left ventricular ejection fraction is 60-65%. Mild concentric left ventricular hypertrophy. Severely reduced right ventricular function. Mild mitral annular calcification. Mild tricuspid regurgitation by color Doppler. There is moderate pulmonary hypertension. The pulmonary pressure (RVSP) is 45 mmHg. Procedure Type of Study TTE procedure:2D Echocardiogram. Procedure Date Date: 11/02/2016 Start: 10:23 AM Study Location: Inpatient Portable Technical Quality: Fair due to body habitus. Appropriate Use Criteria: 8 Patient Status: Routine Rhythm: NSR HR: 56 bpm M-Mode/2D Measurements LV Diastolic Dimension: 4.62 cm LV Systolic Dimension: 2.74 cm LV Septum Diastolic: 1.47 cm LV PW Diastolic: 1.29 cm AO Root Dimension: 2.1 cm Cardiac Output: 4.21 l/min AV Cusp Separation: 1.6 cm RV Diastolic Dimension: 3.37 cm LA volume: 46 ml LVOT: 2.1 cm RV Base: 2.78 cm LVOT VTI: 21.7 cm RV Mid: 2.11 cm LV Stroke volume: 75.12 ml TAPSE: 1.41 cm TDI-S': 6.14 cm/s Doppler Measurements AV Peak Velocity: 1.59 m/s MV Peak E-Wave: 0.94 m/s AV Peak Gradient: 10.11 mmHg MV Peak A-Wave: 1.06 m/s AV Mean Gradient: 6 mmHg MV E/A Ratio: 0.88 LVOT Peak Velocity: 0.74 m/s MV Deceleration Time: 257 msec TR Velocity:3.16 m/s PV Peak Velocity: 0.96 m/s TR Gradient:39.94 mmHg PV Peak Gradient: 3.68 mmHg Estimated RAP:5 mmHg Estimated PASP: 44.94 mmHg Estimated RVSP: 45 mmHg A' Septal Velocity: 0.1 m/s E' Septal Velocity: 0.05 m/s A' Lateral Velocity: 0.11 m/s E' Lateral Velocity: 0.07 m/s Findings Left Ventricle Mild concentric left ventricular hypertrophy. Diastolic assessment reveals Grade I diastolic dysfunction. Right Ventricle Severely reduced right ventricular function. Mild to moderately dilated right ventricle. Left Atrium Normal left atrial size. There is no evidence of patent foramen ovale or atrial septal defect by color Doppler. Right Atrium Normal right atrial size. Mitral Valve Mild mitral annular calcification. Aortic Valve The aortic valve is mildly sclerotic. Tricuspid Valve Mild tricuspid regurgitation by color Doppler. There is moderate pulmonary hypertension. The pulmonary pressure (RVSP) is 45 mmHg. Pulmonic Valve Normal pulmonic valve structure and function. Pericardial Effusion No evidence of pericardial effusion. Miscellaneous Visualized portions of the aortic root and ascending aorta appear normal in size. Pleural Effusion No evidence of pleural effusion. Contractility Score LV regional wall motion:(0-Non visualized 1-Normal 2-Hypokinesis 3-Akinesis 4-Dyskinesis 5-Aneurysm) Signature dtt: Neto Yost (cardio) dtd: 11/02/16 1023 Physician Self Edit
--- NOTE | ~2016-11-01 | ER ---
PATIENT'S NAME: SATYA CASTRO [facility] AGE: 76 Y [address] ROOM: [id number] [place], [place] [address] LOCATION: GICU ADMIT DATE: 11/01/2016 ER/Outpatient Report DISCHARGE DATE: FAMILY PHYSICIAN: Tom Drake MD ATTENDING PHYSICIAN: Nj Kline CHIEF COMPLAINT: Unresponsive and foot pain. HISTORY OF PRESENT ILLNESS: Mr. Castor was at his home today when his felt he was not arousing the way that he normally would in the morning. Thus, she called the ambulance. Mr. Castro has a significant medical history including coronary artery disease, stroke, peripheral vascular disease, and chronic wounds on his legs and butt. He also has need for oxygen and CPAP intermittently. He is not ambulatory at this time secondary to his prior medical conditions. The notes that he is usually mentally awake and alert, but he just was not that way today, and thus the ambulance was called. They found him to be markedly hypoxic at around 65%. He was listless, lethargic, and thus was brought in for a further evaluation. PAST MEDICAL HISTORY: Documented on the record and reviewed by me. SOCIAL HISTORY: Documented on the record and reviewed by me. MEDICATIONS: Documented on the record and reviewed by me. ALLERGIES: DOCUMENTED ON THE RECORD AND REVIEWED BY ME. REVIEW OF SYSTEMS: All systems were reviewed and negative except as noted in the HPI with the caveats that the patient was fairly somnolent initially. PHYSICAL EXAMINATION: VITAL SIGNS: Blood pressure 134/60, pulse 68, respiratory rate is 20, temperature 98.1, SpO2 is 88% on room air having just removed oxygen by EMS. GENERAL: Age-appropriate male, extremely lethargic and malodorous. Appears somnolent with little activity in mild respiratory distress. NEURO: The patient is awake. His GCS appears to be 13. He is unable to answer questions about where he is reliably, but he opens eyes to command. His speech is intelligible and he is able to follow commands. Neurologically, PATIENT'S NAME: SATYA CASTRO [facility] AGE: 76 Y [address] ROOM: [id number] [place], [place] [address] LOCATION: GICU ADMIT DATE: 11/01/2016 ER/Outpatient Report DISCHARGE DATE: FAMILY PHYSICIAN: Tom Drake MD ATTENDING PHYSICIAN: Nj Kline otherwise he does not appear to be able to move the lower extremities very well at all. He has no focal deficits or asymmetry on the exam that I can perform. HEENT: Normocephalic, atraumatic. Eyes are PERRL. Oropharynx is dry. NECK: Supple. Trachea is midline. CHEST: Heart is regular rate and rhythm. No murmurs. LUNGS: Very coarse throughout left greater than right significantly so. ABDOMEN: Obese, but soft, nontender, and nondistended. No rebound or guarding. : Normal male genitalia. BACK: Normal to inspection and palpation of the spine and paraspinal regions. No CVA tenderness. The patient does have what appears to be 2 full thickness pressure ulcers over the sacrum and right gluteal cheek that appear to be in healing phases. EXTREMITIES: The upper extremities are warm well perfused. Lower extremities have Unna boots to the bilateral ankles. SKIN: With multiple small skin tears, heaping keratotic lesions, and generally is dirty. LABORATORY DATA AND X-RAYS: Chest x-ray with bilateral infiltrates poorly localized. EKG: PAC and PVC appreciated. Otherwise, no significant morphologic changes compared to prior EKG from 10/20/2016. No obvious ischemia or dysrhythmia appreciated. Procalcitonin is 1.35. CMS: No appreciable lateralized abnormalities other than a CO2 of 33, glucose of 244, BUN is 85, creatinine 2.9, baseline appears to be about 2-2.5. GFR is estimated to be at 20. No gross abnormalities of the LFTs. CK-MB is 0.6, troponin I is 0.258, free T4 is 0.9. ProBNP is 13,117. TSH is 13.3. CBC: White count is 14.8, hemoglobin 12.2, and platelets of 264, primarily neutrophils at 13.0. INR is 1. Blood gas: PH 7.45, pCO2 is 59, PO2 is 143, bicarb 41, CO2 is 43, base excess 14.4, and 99% on 8 L by face mask. Lactate is 1.2. Urinalysis from suprapubic catheter; 100 leukocytes, 100 protein, 250 glucose, 150 blood. Micro: 50-100 whites, 2-5 RBCs, 0-2 epithelials, many bacteria, rare yeast. Head CT reported as unremarkable per Radiology. IMPRESSION: 1. Encephalopathy. 2. Severe hypoxia. 3. Likely acute on chronic congestive heart failure exacerbation. 4. Infectious features without clear infection or source. 5. Hypothyroidism. 6. Metabolic alkalosis with respiratory acidosis. 7. Troponin elevation of unclear etiology. PATIENT'S NAME: SATYA CASTRO [facility] AGE: 76 Y [address] ROOM: [id number] [place], [place] [address] LOCATION: [facility] ADMIT DATE: 11/01/2016 ER/Outpatient Report DISCHARGE DATE: FAMILY PHYSICIAN: Tom Drake MD ATTENDING PHYSICIAN: Nj Kline EMERGENCY DEPARTMENT COURSE: The patient was seen and evaluated as above at bedside. The patient had clearing of his mental status throughout his stay in the emergency department. He was awake and alert upon my last re-evaluation of multiple. at bedside. Given his current presentation, I believe that he is intravascularly volume replete. I will not administer volume to him at this time. With his presentation, I believe heart failure is most likely his driving factor. We will wean his oxygen as tolerated. I also ordered broad-spectrum antibiotics for this individual, as I cannot definitively exclude infection as a contributing factor as he does have leukocytosis, elevated procalcitonin, and borderline fever; however, the patient does not have SIRS criteria and does not technically meet the definition of sepsis. We will admit him to the hospitalist service to the ICU as a PCU status patient for further evaluation and treatment of these multiple conditions. Critical care time of 41 minutes. Critical care time is warranted for acute hypoxia and encephalopathy. Critical care time consisted of patient evaluation, taking report from EMS, patient re-evaluation, ordering and interpreting blood gas, chest x-ray, EKG, ordering head CT, discussion results with Radiology, titration of oxygen, patient re-evaluation and discussion with hospitalist for admission. The patient did stabilize and will be taken to the floor for further evaluation and treatment. MD SHANELL CAI/siria /[id number] d: 11/02/16732 t: 11/06/16730, OUTPATIENT REPORT
--- NOTE | ~2016-11-01 | OR ---
PATIENT'S NAME: SATYA POON [facility] AGE: 76 Y [address] ROOM: [id number] [place], [place] [address] LOCATION: [facility] ADMIT DATE: 11/01/2016 OR/Procedure Report DISCHARGE DATE: FAMILY PHYSICIAN: Tom Drake MD ATTENDING PHYSICIAN: Nj Kline SURGEON: Gary March MD ENTERPRISE ARCHITECT: DATE OF PROCEDURE: 11/09/2016 PREOPERATIVE DIAGNOSIS: Critical limb ischemia of the right lower extremity. POSTOPERATIVE DIAGNOSIS: Critical limb ischemia of the right lower extremity. PROCEDURE: Aortogram with right lower extremity angiogram. Anterior tibial and posterior tibial occlusions, which were recannulized and angioplastied. FISHING VESSEL MATE: slab puller staff. ANESTHESIA: MAC and local. ESTIMATED BLOOD LOSS: 100 mL. OPERATIVE FINDINGS: Occlusions of the anterior tibia as well as the posterior tibial artery, which were recannulized and angioplastied leaving the arteries patent. DESCRIPTION OF PROCEDURE: The patient was brought to radiographer cardiac catheterization, placed supine on the radiographer cardiac catheterization table, prepped and draped in a sterile manner. Preoperative time-out was performed. The patient received preoperative antibiotics. We gained access via the left groin. We used a micropuncture kit. We infiltrated the skin with 1% lidocaine and then used a micropuncture needle to gain access to the common femoral. We then used Seldinger technique to exchange for a 5-Arabic short sheath. We then went up in the aorta using 0.035 Glidewire as well as Omni Flush catheter. We performed aortogram, which showed patent common external and internal iliac arteries. We went up and over the aortic bifurcation, parked our catheter in the common femoral on the right, and performed a series of angiograms. The SFA was patent. The profunda was patent. The popliteal was patent. The anterior tibia was occluded just distal to its takeoff. The posterior tibia was occluded just distal to its takeoff. The peroneal artery was not seen at all. We used a Magic Torque wire to exchange the 5-Arabic sheath for a 6-Arabic Destination sheath. We gave 5000 units of heparin. We then used 0.014 wire to cross the posterior tibial occlusion. We then balloon angioplastied with first by 2 x 60 and then a 3 x 60 balloon. We then repeated this with the anterior tibia. The completion angiogram showed patent vessels with 2-vessel runoff onto the PATIENT'S NAME: SATYA POON [facility] AGE: 76 Y [address] ROOM: [id number] [place] [id number] LOCATION: [facility] ADMIT DATE: 11/01/2016 OR/Procedure Report DISCHARGE DATE: FAMILY PHYSICIAN: Tom Drake MD ATTENDING PHYSICIAN: Nj Kline. The heparin was reversed. The sheath was removed. We attempted to place an Angio-Seal, but there was leakage of blood, so we had held pressure for 15 minutes. The patient tolerated the procedure well and transferred back to the Surgical ICU. MD CHANTE JENKINS/oziell /[id number] d: 11/09/16 2346 t: 11/12/16 1227, OPERATIVE SUMMARY
--- NOTE | ~2016-11-01 | HP ---
PATIENT'S NAME: SATYA POON [facility] AGE: 76 Y [address] ROOM: [place] [address] LOCATION: [facility] ADMIT DATE: 11/01/2016 History & Physical DISCHARGE DATE: FAMILY PHYSICIAN: Tom Drake MD ATTENDING PHYSICIAN: Nj Kline DATE OF SERVICE: CHIEF COMPLAINT: Acute encephalopathy in the setting of acute hypoxic respiratory failure. HISTORY OF PRESENTING ILLNESS: This 76-year-old white male with previous history of chronic diastolic congestive heart failure, diabetes mellitus type 2, and previous strokes. He was brought to the emergency department by ambulance with lethargy and poor responsiveness since this morning. His relates that he has not been doing well for a couple of weeks. He has developed some new pressure ulcers on his posterior as well as some wounds on his lower legs. He has been receiving outpatient wound care for that. His reports that he has had increasing difficulty with ambulating because of the wound dressings, and pain in his feet and legs apparently. He has not been feeding well but has been taking dietary supplements on a daily basis. This morning, his was unable to get him to arouse. She relates that he has not been compliant with his CPAP at home. After arrival in the emergency room, he received supplemental oxygen for oxygen saturations at 65%. He did seem to improve, and on my evaluation, he was arousable. He was confused and not oriented but recognized his . He admitted to feeling weak but denied chest pain. He did admit to some shortness of breath, but felt that it was improving. He denied abdominal pain or nausea. He has been stooling normally, and he has not had any problems with his chronic indwelling suprapubic catheter. ALLERGIES: NO KNOWN DRUG ALLERGIES. ILLNESSES: 1. Coronary artery disease, status post coronary artery bypass grafting x4. 2. Chronic diastolic congestive heart failure. 3. Obstructive sleep apnea. 4. Morbid obesity. 5. Diabetes mellitus type 2. 6. Essential hypertension. 7. History of cerebrovascular accident with residual cognitive impairment. PATIENT'S NAME: SATYA POON [facility] AGE: 76 Y [address] ROOM: [place] [address] LOCATION: [facility] ADMIT DATE: 11/01/2016 History & Physical DISCHARGE DATE: FAMILY PHYSICIAN: Tom Drake MD ATTENDING PHYSICIAN: Nj Kline 8. Chronic gait instability. 9. BPH with obstructive uropathy, status post suprapubic catheter placement. 10. Venous stasis dermatitis with leg ulcerations. CURRENT MEDICATIONS: 1. Atorvastatin 80 mg p.o. daily. 2. Lyrica 50 mg p.o. b.i.d. 3. Allopurinol 300 mg p.o. daily. 4. Amlodipine 5 mg p.o. daily. 5. Lasix 40 mg p.o. daily. 6. Plavix 75 mg p.o. daily. 7. Carvedilol 25 mg p.o. b.i.d. 8. Oxybutynin 10 mg p.o. daily. 9. Levothyroxine 225 mcg p.o. daily. 10. Calcium acetate 667 three times a day. 11. Colace 100 mg p.o. b.i.d. 12. Glycolax daily. 13. Aspirin 81 mg p.o. daily. 14. Vitamin D3 2000 International Units daily. 15. NovoLog 30 units subcu q.a.c. 16. Levemir 65 units subcutaneous q.a.m. and 55 units subcu q.p.m. FAMILY HISTORY: Significant for heart disease in his father. Mother suffered a stroke and also had heart disease. SOCIAL HISTORY: He is and lives here in [place]. He has a history of pipe smoking, currently quit. No significant history of alcohol use. REVIEW OF SYSTEMS: As per HPI. All other organ systems reviewed and are negative. OBJECTIVE: VITAL SIGNS: Temperature 100.4, pulse 67, respirations 20, blood pressure 130/80, O2 saturation 98% on 6 L per simple mask. SKIN: Supple, pale, warm, dry. There are areas of hyperpigmentation overlying the lower extremities. Some subcutaneous hemorrhages over the upper extremities. He has Unna boots in the bilateral lower extremities. HEENT: Otherwise, normocephalic. Sclerae nonicteric. Pupils equal, round, slow to react to light. Extraocular movements appear intact. Nasal turbinates normal in appearance. Oropharynx clear. Mucous membranes are pink and moist. NECK: Supple. Plethoric and obese. No masses or adenopathy. No thyromegaly. Difficult to assess. There is 2 to 3 cm JVD in the 30-degree PATIENT'S NAME: SATYA POON [facility] AGE: 76 Y [address] ROOM: [id number] [place], [place] [address] LOCATION: [facility] ADMIT DATE: 11/01/2016 History & Physical DISCHARGE DATE: FAMILY PHYSICIAN: Tom Drake MD ATTENDING PHYSICIAN: Nj Kline position. CHEST: Chest wall is symmetrical. HEART: Distant, regular with occasional extrasystoles. LUNGS: Coarse and diminished, right greater than left with some basilar crackles. No wheezes. ABDOMEN: Soft and obese. Nontender. Bowel sounds present. No mass or hepatosplenomegaly. and RECTAL: Shows normal male external genitalia. There is a suprapubic catheter in place. EXTREMITIES: Display 1 to 2+ pitting edema with Unna boots over the bilateral lower extremities. NEUROLOGIC: Mentation is slowed. He is oriented x1 only. Cranial nerves 2 through 12 appear grossly intact. Sensation appears normal. Strength is 1/5 in the bilateral lower extremities, 2 to 3 out of 5 in the bilateral upper extremities. DTRs are 0 to 1+, roughly symmetrical. Gait is not observed. LABORATORY AND X-RAY DATA: Chest x-ray shows poor inspiration. There is prominence of the vasculature. CT scan of the brain shows an old right basal ganglia infarct. No acute intracranial abnormalities. CBC showed a white blood cell count elevated at 14.8, hemoglobin is 12.0, hematocrit 38.5, platelets 264. Chemistries reveal a BUN and creatinine of 85 and 2.9 respectively, sodium and potassium of 138 and 4.9, chloride and CO2 are 100 and 33 respectively, calcium is 9.5. AST and ALT of 12 and 16, bilirubin is 0.3, glucose 244. Cardiac enzymes revealed a troponin I of 0.258. ProBNP 13,117. CK-MB was 0.6. His TSH was abnormal at 13.3, procalcitonin 1.35, lactate 1.2. ABGs revealed a pH of 7.45, pCO2 of 59, pO2 of 143. ASSESSMENT AND PLAN: 1. Acute encephalopathy, probably multifactorial. I suspect hypoxic respiratory failure as the primary etiology here. He seems to be clinically improved with some supplemental oxygen. We will encourage pulmonary hygiene. Continue with supplemental oxygen and work on his volume status (see below). We will consider additional workup depending on his clinical progress. 2. Acute hypoxic respiratory failure in the setting of chronic hypoxic respiratory failure. I suspect fluid overload. There is no clear evidence of pneumonia. We will continue with supplemental oxygen and encourage good pulmonary hygiene as above. We will diurese carefully. We will plan to get echocardiogram and follow up on that when the results are known and trend his cardiac enzymes. 3. Elevated cardiac enzymes. He appears to be otherwise asymptomatic, and there are no clear EKG changes. He may be experiencing a troponin leak in the setting of acute on chronic diastolic congestive heart failure. We will trend cardiac enzymes and follow serially. PATIENT'S NAME: SATYA POON [facility] AGE: 76 Y [address] ROOM: [id number], [place] [address] LOCATION: [facility] ADMIT DATE: 11/01/2016 History & Physical DISCHARGE DATE: FAMILY PHYSICIAN: Tom Drake MD ATTENDING PHYSICIAN: Nj Kline 4. Acute on chronic diastolic congestive heart failure. We will get echocardiography and follow up on that when the results are known. In the meantime, careful fluid volume management. I will start IV Bumex this evening and see how he responds. 5. Acute kidney injury in the setting of chronic kidney disease, stage 3 to 4. We will attempt diuresis as above and follow this serially. We will get renal ultrasound. Continue with suprapubic catheter and watch his urine output serially. 6. Venous stasis dermatitis with leg ulcers. There is no clear evidence of an infection here, but we will have to keep this in mind. He is not clearly septic. We will plan to continue with broad-spectrum antibiotic therapy, already started in the emergency room. He has also known sacral decubitus ulcers. We will have Wound Ostomy Care evaluate these. 7. Essential hypertension. We will plan to continue with his antihypertensive regimen, but hold HERBIE inhibitor therapy in light of his renal impairment. 8. Deep venous thrombosis prophylaxis. We will use subcu heparin while he is inpatient. MD THOM RODAS/modl /[id number] D: [id number] T: [id number] HISTORY & PHYSICAL
--- NOTE | ~2016-11-01 | ENPV ---
Vascular Lower Extremities Arterial Duplex and Lower Arterial Plethysmography Procedure Demographics Patient Name SATYA POON Date of Study 11/03/2016 Patient Number [id number] Gender Male Date of 1940 Age 76 Visit Number [id number] Height 69 Accession Number [id number] Weight 268.01 Referring [facility] Tom Paredes MD Interpreting Joaquim Vega MD Physician Stuart Wing APRN Physician Physician Ordering Stuart Wing Cook Seafood Physician RANDOLPH Slip Box Changer Ginna Bah [facility], T Conclusions Summary Duplex imaging of the right leg suggests mild diffuse disease in the lower extremity. Waveforms are monophasic throughout the right lower extremity. Unable to visualize the right peroneal artery. The ankle brachial index is greater than 1.4 on the right therefore the ankle vessels are calcified and not compressible. Procedure Type of Study: Extremities Arteries:Lower Extremities Arterial Duplex, Arterial Lower Extremity Right, Lower Arterial Plethysmography, Ankle/Brachial Indicies Unilateral. Indications for Study:Reduced/Absent pulses. Appropriate Use Criteria:9 Patient Status:Routine. Study Location:Inpatient Portable. Technical Quality:Adequate visualization. Velocities are measured in cm/s ; Diameters are measured in cm Pressures + ++--------+-----+----+--------+-----+ ! !!Right ! !Left! ! ! + ++--------+-----+----+--------+-----+ !Location !!Pressure!Ratio! !Pressure!Ratio! + ++--------+-----+----+--------+-----+ !Ankle PT !!278 !2.55 ! ! ! ! + ++--------+-----+----+--------+-----+ !DP !!278 !2.55 ! ! ! ! + ++--------+-----+----+--------+-----+ !Great Toe !!131 !1.2 ! ! ! ! + ++--------+-----+----+--------+-----+ - Brachial Pressure:Right: 109. - PREET:Right: 2.55. Plethysmographic Digit Evaluation +---------++--------+-----+ ++--------+-----+ + ! !!Right ! !Left !! ! ! ! +---------++--------+-----+ ++--------+-----+ + !Location !!Pressure!Ratio!PPG Wave Form !!Pressure!Ratio!PPG Wave Form ! +---------++--------+-----+ ++--------+-----+ + !Great Toe!!131 !1.2 ! !! ! ! ! +---------++--------+-----+ ++--------+-----+ + Velocities are measured in cm/s ; Diameters are measured in cm LE Duplex Measurements + ++-----+ +----+---+ + ! !!Right! !Left! ! ! + ++-----+ +----+---+ + !Location !!PSV !Wave Desc.! !PSV!Wave Desc. ! + ++-----+ +----+---+ + !Femoral !!73 !Biphasic ! ! ! ! + ++-----+ +----+---+ + !Prox SFA !!76 !Biphasic ! ! ! ! + ++-----+ +----+---+ + !Mid SFA !!102 !Monophasic! ! ! ! + ++-----+ +----+---+ + !Dist SFA !!100 !Monophasic! ! ! ! + ++-----+ +----+---+ + !Prox Popliteal !!97 !Monophasic! ! ! ! + ++-----+ +----+---+ + !Dist Popliteal !!72 !Monophasic! ! ! ! + ++-----+ +----+---+ + !Dist STEAM PRESSER !!98 !Monophasic! ! ! ! + ++-----+ +----+---+ + Signature dtt: HOLLY BROWN dtrafi: 11/03/16 1403 Physician Self Edit
[2016-11-01 12:18] LABS: BILIRUBIN URINE NEGATIVE (NEGATIVE); BLOOD URINE 150 /UL (NEGATIVE); COLOR URINE YELLOW (YELLOW); GLUCOSE URINE 250 mg/dL (NEGATIVE); KETONE URINE NEGATIVE (NEGATIVE); LEUKOCYTES URINE 100 /UL (NEGATIVE); NITRITE URINE NEGATIVE (NEGATIVE); PROTEIN URINE 100 mg/dL (NEGATIVE); TURBIDITY URINE 2+ (CLEAR); UROBILINOGEN URINE NORMAL (NORMAL)
[2016-11-01 12:33] LABS: WBC URINE 50-100 #/HPF (NEGATIVE)
[2016-11-01 12:34] LABS: BACTERIA URINE MANY (NEGATIVE); EPITHELIAL URINE 0-2 #/HPF (NEGATIVE); YEAST URINE RARE (NEGATIVE)
[2016-11-01 12:59] LABS: INR - (THERAPEUTIC) 1.05 (0.92-1.07); PTT 29 SECONDS (25-32)
[2016-11-01 13:39] LABS: LACTATE 1.2 mEq/L (0.50-1.60); PCO2 59 mmHg (35-45); PO2 143 mmHg (80-90)
[2016-11-01 13:45] LABS: BASOPHIL # 0.1 K/uL (0.0-0.2); BASOPHIL % 0.4 %; EOSINOPHIL # 0.1 K/uL (0.0-0.5); EOSINOPHIL % 0.5 %; HEMATOCRIT 38.5 % (37.0-53.0); IMMATURE GRANULOCYTE # 0.1 K/uL (0.0-0.3); IMMATURE GRANULOCYTE % 0.7 %; LYMPHOCYTE # 0.6 K/uL (0.8-4.0); LYMPHOCYTE % 3.7 %; MCH 27.6 pg (27.0-34.0); MCHC 31.2 gm/dL (32.0-36.5); MCV 88.5 fl (83.0-98.0); MONOCYTE # 1.1 K/uL (0.0-1.0); MONOCYTE % 7.3 %; MPV 9.5 fl (9.4-12.4); NEUTROPHIL % 87.4 %; NRBC % 0 /100WBC (0-0.00); PLATELET COUNT 264 K/uL (150-450); RBC 4.35 M/uL (3.50-5.50); RDW-CV 14.6 % (11.9-14.6); WBC 14.8 K/uL (4.0-11.0)
[2016-11-01 14:09] LABS: ANION GAP 9.9 (10.0-19.0); CALCIUM 9.5 mg/dL (8.5-10.5); CREATININE 2.9 mg/dL (0.6-1.3); POTASSIUM 4.9 mMol/L (3.7-5.1)
[2016-11-01 14:12] LABS: TOTAL BILIRUBIN 0.3 mg/dL (0.0-1.5)
[2016-11-01] MEDS ORDERED: LEVEMIR100 UNIT/1 SUB-Q (23:14)
--- NOTE | 2016-11-02 04:40 | NUR ---
Significant Event: Patient is alert and oriented x 3. Forgetful. Slightly slurred speech noted. VSS on 3L of O2. Suprapubic catheter intact, good UOP. Unna boots to bilateral lower extremities. WOC to see this am. Pressure sores x 2 to buttock and right lower back. Failed bedside swallow study, NPO. Q6 hour accuchecks. Right hand IV, saline locked. Receiving intermittent IV antibiotics. Patient is cooperative with cares. Follow up: ECHO this am
[2016-11-02 06:01] LABS: HEMATOCRIT 41.2 % (37.0-53.0); HEMOGLOBIN 12.7 g/dL (11.0-16.0); MCHC 30.8 gm/dL (32.0-36.5); MCV 90.9 fl (83.0-98.0); MPV 9.4 fl (9.4-12.4); RBC 4.53 M/uL (3.50-5.50); RDW-CV 14.6 % (11.9-14.6); WBC 15.1 K/uL (4.0-11.0)
[2016-11-02 06:02] LABS: PLATELET COUNT 208 K/uL (150-450)
[2016-11-02 06:22] LABS: CALCIUM 9.1 mg/dL (8.5-10.5); CREATININE 2.5 mg/dL (0.6-1.3); PHOSPHORUS 4.9 mg/dL (2.5-4.9); POTASSIUM 4.6 mMol/L (3.7-5.1)
[2016-11-02 06:23] LABS: ANION GAP 10.6 (10.0-19.0)
[2016-11-02 06:38] LABS: BANDED NEUTROPHIL # 0.3 K/uL (0.0-0.1); BANDED NEUTROPHILS % 2 %; LYMPHOCYTE # 0.5 K/uL (0.8-4.0); LYMPHOCYTE % 3 %; MONOCYTE # 0.5 K/uL (0.0-1.0); SEGMENTED NEUTROPHIL # 13.7 K/uL (1.4-9.0); SEGMENTED NEUTROPHIL % 91 %
[2016-11-02] MEDS ORDERED: LEVOTHROID (SY25 MCG PO (07:10)
[2016-11-02 15:14] LABS: CREATININE 2.5 mg/dL (0.6-1.3)
--- NOTE | 2016-11-02 17:56 | NUR ---
Significant Event:Prior to leaving unit @ 1320 pt was oriented to self, followed all commands, was in SR with BBB and PVCS, on 4L NC, desats when sleeping and apneic - states pt is suppose to wear CPAP at [facility] but refuses, pt kept NPO due to failing bedside nurse swallow samir bloom with UOP = 1000mls prior to 1320 and pt received 2mg Bumex IVP, BLE very foul smelling with unna boots removed by WOC and necrotic tissue noted, Dr March consulted and spoke with patient and about need to amputate Left Lower extremity above the knee and then debride the Rt foot, pt left for [facility] @ 1320 and has not returned at this time Follow up:Consider Bipap when sleeping
[2016-11-02 22:51] LABS: HEMOGLOBIN 9.3 g/dL (11.0-16.0)
[2016-11-02 23:00] LABS: HEMATOCRIT 29.9 % (37.0-53.0)
[2016-11-02 23:13] LABS: CALCIUM 7.9 mg/dL (8.5-10.5); POTASSIUM 4.9 mMol/L (3.7-5.1)
[2016-11-02 23:16] LABS: ANION GAP 12.9 (10.0-19.0)
[2016-11-03 05:56] LABS: BASOPHIL # 0.1 K/uL (0.0-0.2); BASOPHIL % 0.4 %; EOSINOPHIL # 0.2 K/uL (0.0-0.5); EOSINOPHIL % 1.4 %; HEMATOCRIT 28.6 % (37.0-53.0); HEMOGLOBIN 8.7 g/dL (11.0-16.0); IMMATURE GRANULOCYTE # 0.1 K/uL (0.0-0.3); IMMATURE GRANULOCYTE % 0.7 %; LYMPHOCYTE # 0.6 K/uL (0.8-4.0); LYMPHOCYTE % 4.2 %; MCHC 30.4 gm/dL (32.0-36.5); MCV 90.5 fl (83.0-98.0); MONOCYTE # 0.9 K/uL (0.0-1.0); MONOCYTE % 6.2 %; MPV 9.5 fl (9.4-12.4); NEUTROPHIL # (ANC) 12.4 K/uL (1.4-9.0); NEUTROPHIL % 87.1 %; NRBC % 0 /100WBC (0-0.00); RDW-CV 14.6 % (11.9-14.6); WBC 14.2 K/uL (4.0-11.0)
[2016-11-03 05:59] LABS: MCH 27.5 pg (27.0-34.0); PLATELET COUNT 257 K/uL (150-450); RBC 3.16 M/uL (3.50-5.50)
[2016-11-03 06:12] LABS: CALCIUM 7.8 mg/dL (8.5-10.5); CREATININE 1.9 mg/dL (0.6-1.3); MAGNESIUM 2.3 mg/dL (1.8-2.6); PHOSPHORUS 2.8 mg/dL (2.5-4.9); POTASSIUM 4.6 mMol/L (3.7-5.1); TOTAL PROTEIN 5.5 g/dL (6.0-8.4)
[2016-11-03 06:17] LABS: ALBUMIN 1.9 gm/dL (3.5-5.0); ANION GAP 11.6 (10.0-19.0); TOTAL BILIRUBIN 0.5 mg/dL (0.0-1.5)
[2016-11-03 10:48] LABS: HEMATOCRIT 28.5 % (37.0-53.0); HEMOGLOBIN 8.8 g/dL (11.0-16.0); MCH 28.5 pg (27.0-34.0); MCHC 30.9 gm/dL (32.0-36.5); MCV 92.2 fl (83.0-98.0); MPV 9.4 fl (9.4-12.4); RBC 3.09 M/uL (3.50-5.50); RDW-CV 14.7 % (11.9-14.6); WBC 11.1 K/uL (4.0-11.0)
[2016-11-03 10:49] LABS: PLATELET COUNT 201 K/uL (150-450)
--- NOTE | 2016-11-03 11:03 | NUR ---
Diabetes consult: Patient referral received after A1C came back at 11.8%. Patient is currently resting with his eyes closed. No family present. The patient had surgery late yesterday and received his first dose of Levemir at 0000. Blood sugars have been 260-317, however his fasting blood sugar is lower today in the low 200's. Will continue to trend blood sugars and assess educational needs when appropriate.
[2016-11-03 11:05] LABS: ALBUMIN 2.1 gm/dL (3.5-5.0); CREATININE 1.9 mg/dL (0.6-1.3); POTASSIUM 4.1 mMol/L (3.7-5.1); TOTAL PROTEIN 5.7 g/dL (6.0-8.4)
[2016-11-03 11:06] LABS: ANION GAP 9.1 (10.0-19.0); TOTAL BILIRUBIN 0.3 mg/dL (0.0-1.5)
[2016-11-03 11:11] LABS: BICARBONATE 36.8 mmol/L (18.0-23.0); PCO2 58 mmHg (35-45)
[2016-11-03 11:12] LABS: PO2 80 mmHg (80-90)
[2016-11-03 11:19] LABS: ABSOLUTE NEUTROPHIL CT (ANC) 10.1 K/uL (1.4-9.0); BANDED NEUTROPHIL # 0.6 K/uL (0.0-0.1); BANDED NEUTROPHILS % 5 %; LYMPHOCYTE # 0.1 K/uL (0.8-4.0); LYMPHOCYTE % 1 %; MONOCYTE # 0.7 K/uL (0.0-1.0); SEGMENTED NEUTROPHIL # 9.6 K/uL (1.4-9.0); SEGMENTED NEUTROPHIL % 86 %
--- NOTE | 2016-11-03 14:08 | NUR ---
Introduced self and care management services to patient and at bedside. Pt pretty sleepy and watches his during out conversation. Too soon to know exactly what needs will be but anticipate needing inpt rehab or skilled stay somewhere for therapies. Lives in [place]. Will follow.
--- NOTE | 2016-11-03 17:29 | NUR ---
PT ALERT, D/O TO TIME AND PLACE, RE-ORIENTS TO DATE AT TIMES. EQUAL STRENGTH TO BUE, RLE WEAK; PREET STUDIES TODAY SHOWING MONOPHASIC FLOW, RE-DRESSED PER WARDROBE ATTENDANT AND TO BE CHANGED BID. BATHED, L) AKA DRSG NOT CHANGED TODAY WITHOUT ANY DRNG. SACRAL WOUND WITH ALOE PLACED, LOOKING BETTER FROM TWO DAYS AGO. R) PICC PLACED AND PIV X3 DC'D, IVF STOPPED ALONG WITH DILAUDID MERCHANDISE BUYER AND FENT PRN ADDED (NOT GIVEN). BIPAP ON WHEN SLEEPING, ABG'S SHOWING COMPENSATED RESPIRATORY ACIDOSIS, DIURESED THIS EVENING WITH MODERATE RESPONSE THUS FAR. SP CATH WITH CLOUDY/SEDIMENT UOP, URINE STUDIES WNL. NO BM, REMAINED NPO BUT WAS ABLE TO TAKE EVENING METALOZONE WITHOUT ANY DIFFICULTY. DROWSY FOR MOST OF AM, THEN MORE PERKY THIS AFTERNOON. CXR THIS AM SHOWING ENGLARGED CARDIAC SILHOUETTE OTHERWISE UNINPRESSIVE.
[2016-11-04 04:16] LABS: CALCIUM 8.5 mg/dL (8.5-10.5); CREATININE 1.7 mg/dL (0.6-1.3); POTASSIUM 3.8 mMol/L (3.7-5.1); TOTAL PROTEIN 6.1 g/dL (6.0-8.4)
[2016-11-04 04:18] LABS: ANION GAP 6.8 (10.0-19.0); TOTAL BILIRUBIN 0.4 mg/dL (0.0-1.5)
[2016-11-04 04:27] LABS: BASOPHIL % 0.3 %; EOSINOPHIL # 0.3 K/uL (0.0-0.5); EOSINOPHIL % 2.7 %; HEMATOCRIT 27.5 % (37.0-53.0); HEMOGLOBIN 8.4 g/dL (11.0-16.0); IMMATURE GRANULOCYTE # 0.1 K/uL (0.0-0.3); IMMATURE GRANULOCYTE % 0.6 %; LYMPHOCYTE # 0.6 K/uL (0.8-4.0); LYMPHOCYTE % 5.7 %; MCH 28.1 pg (27.0-34.0); MCHC 30.5 gm/dL (32.0-36.5); MONOCYTE # 0.6 K/uL (0.0-1.0); MONOCYTE % 6.2 %; MPV 9.6 fl (9.4-12.4); NEUTROPHIL # (ANC) 8.4 K/uL (1.4-9.0); NEUTROPHIL % 84.5 %; NRBC % 0 /100WBC (0-0.00); PLATELET COUNT 219 K/uL (150-450); RBC 2.99 M/uL (3.50-5.50)
--- NOTE | 2016-11-04 04:47 | NUR ---
Significant Event: NO SIGNIFICANT NEURO CHANGES DURING SHIFT. HR'S 60'S-80'S. SBP 100'S-160'S. MAPS >65. FREQ PVC'S AND PAC'S. AFEBRILE. BIPAP ON WHILE SLEEPING WITH 3L, O2 >90%. SUPRAPUBIC CATHETER CAME OUT OF PATIENT AT 0400.UROLOGY CONSULT IN AM. 1825ML OUT FOR URINE. CSM TO BILATERAL LEGS INTACT. R) FOOT DRESSING CHANGED DURING SHIFT. L) AKA DRESSING C/D/I. REPO Q2 HRS. GAVE FENT Q3HRS AND NORCO 2 TABS X2. SWALLOWING PILLS GOOD, NO SIGNS OF ASPIRATION. NO COUGHING/DECREASED O2. Follow up: FOLLOW UP WITH SWALLOW/DIET. UROLOGY CONSULT. PCU STATUS.
--- NOTE | 2016-11-04 15:03 | NUR ---
[facility] note: 1330 Spoke with primary care nurse today, patient blood sugars today 82-109, which are much lower, Dex 5 % water given as per MD order. Patient is sleeping at the time of CDE visit, spouse not present at this time. Patient is not a candidate for education at this time, will continue to follow
--- NOTE | 2016-11-04 19:25 | NUR ---
Significant Event: Alert to self and location at times. Disoriented to month and year. Follows commands and moves spontaneously. Pupils 3mm brisk. Denies N/T. Equal moderate strength to upper extremities. RLE able to wiggle toes. L) limb able to move slightly. SBP 90-130's, HR 60-80's, 1+ edema to upper extremities, RLE 2-3+ edema, LLE 1+ edema, palpable pulses. L.S. clear and diminished throughout on 3L via N.[place]., to wear BIPAP at noc when sleeping on 3L. B.S. hypoactive, decreased appetite, last BM 11/01. Suprapubic intact, draining claudia urine, concentrated. PIV R) upper arm triple lumen infusing D5Q at 100mL/hr x 24 hrs, to be D/C'd at 1330, infusing intermittent Atbx. Accuchecks AC/HS, aggressive scale, coverage needed. Takes medications whole, diabetic diet, 1:1 feeder. Change RLE ulcer BID/prn drainage, changed x 4 this shift, sangeinous drainage present, wet-to-dry with gauze packs, ABD, Kerlex. Turn Q2Hrs. Follow up: Called Hospitalist on patients increased confusion level towards end of shift, order to receive Seroquel prn confusion.
[2016-11-05 05:00] LABS: BASOPHIL % 0.4 %; EOSINOPHIL # 0.4 K/uL (0.0-0.5); HEMATOCRIT 22.7 % (37.0-53.0); IMMATURE GRANULOCYTE # 0.1 K/uL (0.0-0.3); IMMATURE GRANULOCYTE % 1.1 %; LYMPHOCYTE # 0.8 K/uL (0.8-4.0); LYMPHOCYTE % 8.4 %; MCHC 30.4 gm/dL (32.0-36.5); MCV 92.3 fl (83.0-98.0); MONOCYTE # 0.6 K/uL (0.0-1.0); MPV 9.9 fl (9.4-12.4); NEUTROPHIL # (ANC) 7.2 K/uL (1.4-9.0); NEUTROPHIL % 79.1 %; NRBC % 0 /100WBC (0-0.00); PLATELET COUNT 222 K/uL (150-450); RBC 2.46 M/uL (3.50-5.50); RDW-CV 14.9 % (11.9-14.6); WBC 9.1 K/uL (4.0-11.0)
[2016-11-05 05:11] LABS: CALCIUM 8.2 mg/dL (8.5-10.5); CREATININE 1.6 mg/dL (0.6-1.3); TOTAL PROTEIN 5.6 g/dL (6.0-8.4)
[2016-11-05 05:12] LABS: ALBUMIN 1.7 gm/dL (3.5-5.0); TOTAL BILIRUBIN 0.3 mg/dL (0.0-1.5)
[2016-11-05 05:14] LABS: HEMOGLOBIN 6.9 g/dL (11.0-16.0)
--- NOTE | 2016-11-05 07:09 | NUR ---
Significant Event: Pt is alert and orineted to self and place. Confused at times. Pupils are equal and reactive. Follows commands in the upper extremities and in the lower L). Pt did get hypotesnive and orders to give 1 unit of PRBC's obtained. Pt on 3L of O2 via NC. Dressings to the R) lower extremity were changed x2 this shift due to dressing being saturated. Dressing the the L) leg intact. Supra pubic catheiter in place. No BM this shift. R) PICC in place. Follow up: 1 unit of blood to be given
--- NOTE | 2016-11-05 11:30 | NUR ---
A-NUTRITION F/U S/P L)AKA. ULCERS TO RLE, R)LOWER BACK AND SACRUM. CONFUSED AT TIMES. DIABETIC. NO BM SINCE ADMIT LABS: NA 142, K+ 4.0, GLU 276, BUN 48, PETROLEUM REFINERY WORKER 1.6, ALB 1.7. ACCUCHECKS: 82-317 DIET RX: PUREE. PO INTAKE 0-50% EST NUTR NEEDS: 0781-7427 KCALS AND 85-107 GM PROTEIN D-AT NUTRITION RISK W/INCREASED NUTRIENT NEEDS R/T ALTERED SKIN INTEGRITY AEB RECENT L)AKA, ULCERS TO RLE, R)LOWER BACK, AND SACRUM. I-START GLUCERNA TID WITH MEALS M/E-GOAL: PO INTAKE >/=50% BY NEXT F/U 1)F/U PO INTAKE, SUPPLEMENT TOLERANCE, SKIN, GI, AND POC IN 3-5 DAYS 2)ASSIST NEEDED
--- NOTE | 2016-11-05 17:04 | NUR ---
Patient a/ox3 at beggining of shift with increase in confusion and agitation throughout shift. PERRLA. c/o n/t to lower extremities. HR 60-80 with SBP 110-120s. Afebrile. 1 unit PRBC given this shift for decreased Hgb. Continues on 3L NC with o2 sats low-mid 90s. Suprapubic catheter with adequate UOP this shift. Follow up: Possible ATK amputation on R) lower extremity
[2016-11-06 05:13] LABS: CALCIUM 8.8 mg/dL (8.5-10.5); CREATININE 1.4 mg/dL (0.6-1.3); POTASSIUM 4.2 mMol/L (3.7-5.1); TOTAL PROTEIN 5.7 g/dL (6.0-8.4)
[2016-11-06 05:15] LABS: ALBUMIN 1.8 gm/dL (3.5-5.0); ANION GAP 8.2 (10.0-19.0); TOTAL BILIRUBIN 0.5 mg/dL (0.0-1.5)
[2016-11-06 05:18] LABS: BASOPHIL # 0.1 K/uL (0.0-0.2); BASOPHIL % 0.6 %; EOSINOPHIL # 0.5 K/uL (0.0-0.5); EOSINOPHIL % 5.2 %; HEMATOCRIT 23.4 % (37.0-53.0); IMMATURE GRANULOCYTE # 0.2 K/uL (0.0-0.3); IMMATURE GRANULOCYTE % 2.2 %; LYMPHOCYTE # 0.8 K/uL (0.8-4.0); LYMPHOCYTE % 9.2 %; MCH 27.4 pg (27.0-34.0); MCHC 30.8 gm/dL (32.0-36.5); MONOCYTE # 0.6 K/uL (0.0-1.0); MONOCYTE % 6.6 %; MPV 9.4 fl (9.4-12.4); NEUTROPHIL # (ANC) 6.7 K/uL (1.4-9.0); NEUTROPHIL % 76.2 %; NRBC % 0.7 /100WBC (0-0.00); PLATELET COUNT 235 K/uL (150-450); RBC 2.63 M/uL (3.50-5.50); RDW-CV 15.3 % (11.9-14.6); WBC 8.8 K/uL (4.0-11.0)
[2016-11-06 05:20] LABS: HEMOGLOBIN 7.2 g/dL (11.0-16.0)
--- NOTE | 2016-11-06 05:48 | NUR ---
Significant Event: Pt is alert and orineted to self and place. He does get confused at times. Pupils are equal and reactive. Moves the upper extremities and lower R) extremity spontaneously and to command. Some slight movement in the L) lower stump, pain with movement. Pt continues on 2-3 L of O2, on the BiPap for a short time this shift. Has been hypotensive at times. Dressings chaged to bilateral lower extremities. Suprapubic cathiter in place with adequate urine output. Bowel sounds are active, no BM this shift. Follow up: Monitor Hg level
[2016-11-06 11:34] LABS: BASOPHIL # 0.1 K/uL (0.0-0.2); BASOPHIL % 0.7 %; EOSINOPHIL # 0.5 K/uL (0.0-0.5); EOSINOPHIL % 5.2 %; IMMATURE GRANULOCYTE # 0.2 K/uL (0.0-0.3); IMMATURE GRANULOCYTE % 2.2 %; LYMPHOCYTE # 0.7 K/uL (0.8-4.0); LYMPHOCYTE % 7.9 %; MCH 27.8 pg (27.0-34.0); MCHC 30.9 gm/dL (32.0-36.5); MCV 90.2 fl (83.0-98.0); MONOCYTE # 0.6 K/uL (0.0-1.0); MONOCYTE % 6.6 %; MPV 9.4 fl (9.4-12.4); NEUTROPHIL # (ANC) 6.6 K/uL (1.4-9.0); NEUTROPHIL % 77.4 %; NRBC % 0.5 /100WBC (0-0.00); PLATELET COUNT 232 K/uL (150-450); RBC 2.55 M/uL (3.50-5.50); RDW-CV 15.2 % (11.9-14.6); WBC 8.6 K/uL (4.0-11.0)
[2016-11-06 11:39] LABS: HEMOGLOBIN 7.1 g/dL (11.0-16.0)
--- NOTE | 2016-11-06 15:48 | NUR ---
PERRLA. Moves all extremities spontaneously and on command. Patient continues to have and increase in agitation and disorientation later in the shift. HR 70s, SBP 110-120s. Afebrile. Continues on 2L NC with o2 sats mid-upper 90s. No BM this shift, daily PRN medication given with no success. Infusing 2 units of PRBC for decreased Hgb. Follow up: Transfer. Possible amputation of RLE.
--- NOTE | 2016-11-07 04:25 | NUR ---
Significant Event: A/O X3, C/O N/T IN BILATERAL LOWER EXTREMETIES. VSS, ON 2L N/C BY DAY AND 3L BY NIGHT ON BI-PAP, TOLERATED WELL. LUNG SOUNDS CLEAR AND DIM. HYPOACTIVE BOWEL SOUND AND NO BM. SP CATHETER DRAINED 1480ML. CHANGED DRESSING TO RIGHT FOOT WET TO DRY. NORCO 1TAB GIVEN X2 WITH RELIEF. Follow up: BARIUM STUDY ON TUESDAY.
[2016-11-07 04:27] LABS: ANION GAP 9.7 (10.0-19.0); CALCIUM 8.6 mg/dL (8.5-10.5); CREATININE 1.5 mg/dL (0.6-1.3); POTASSIUM 4.7 mMol/L (3.7-5.1); TOTAL BILIRUBIN 0.4 mg/dL (0.0-1.5); TOTAL PROTEIN 5.8 g/dL (6.0-8.4)
[2016-11-07 04:28] LABS: ALBUMIN 1.8 gm/dL (3.5-5.0)
[2016-11-07 04:33] LABS: BASOPHIL # 0.1 K/uL (0.0-0.2); BASOPHIL % 0.6 %; EOSINOPHIL # 0.5 K/uL (0.0-0.5); EOSINOPHIL % 3.7 %; HEMOGLOBIN 9.4 g/dL (11.0-16.0); IMMATURE GRANULOCYTE # 0.2 K/uL (0.0-0.3); IMMATURE GRANULOCYTE % 1.6 %; LYMPHOCYTE # 0.6 K/uL (0.8-4.0); LYMPHOCYTE % 4.5 %; MCHC 32.6 gm/dL (32.0-36.5); MCV 89.2 fl (83.0-98.0); MONOCYTE # 0.8 K/uL (0.0-1.0); MONOCYTE % 5.9 %; MPV 9.3 fl (9.4-12.4); NEUTROPHIL # (ANC) 11.3 K/uL (1.4-9.0); NEUTROPHIL % 83.7 %; NRBC % 0.3 /100WBC (0-0.00); PLATELET COUNT 268 K/uL (150-450); RDW-CV 14.7 % (11.9-14.6); WBC 13.5 K/uL (4.0-11.0)
[2016-11-07 04:34] LABS: HEMATOCRIT 28.8 % (37.0-53.0); MCH 29.1 pg (27.0-34.0); RBC 3.23 M/uL (3.50-5.50)
[2016-11-07 08:31] LABS: BICARBONATE 39.1 mmol/L (18.0-23.0); PCO2 49 mmHg (35-45); PO2 77 mmHg (80-90)
--- NOTE | 2016-11-07 16:18 | NUR ---
MEG. At begining of shift patient was minimally responsive. Give Narcan IVP x2. Patient quickly aroused and became agitated but was drowsy. Patient was drowsy upon second assessment but was able to answer orientation questions correctly. Patient became agitated and disoriented by 3rd assesment, but followed commands approrpriatley. HR 60-70s, SBP 90-130, MAPs 60-80s. Patient on Bipap most of day and then changed to 3L NC after awakening more. Had BM this shift. All pain medications and blood thinners held. WBC dramatically increased from yesterday labs. Patients family was informed that patient's R) lower extremity would need to be taken ATK either today or tommorow. Follow up: Keep NPO, ATK amputation tommorow.
[2016-11-08 03:56] LABS: ANION GAP 10.7 (10.0-19.0); CALCIUM 8.5 mg/dL (8.5-10.5); CREATININE 1.6 mg/dL (0.6-1.3); POTASSIUM 4.7 mMol/L (3.7-5.1); TOTAL PROTEIN 5.9 g/dL (6.0-8.4)
[2016-11-08 03:57] LABS: ALBUMIN 1.7 gm/dL (3.5-5.0); TOTAL BILIRUBIN 0.7 mg/dL (0.0-1.5)
[2016-11-08 04:01] LABS: BASOPHIL # 0.1 K/uL (0.0-0.2); BASOPHIL % 0.7 %; EOSINOPHIL # 0.5 K/uL (0.0-0.5); EOSINOPHIL % 5.1 %; HEMATOCRIT 28.9 % (37.0-53.0); IMMATURE GRANULOCYTE # 0.2 K/uL (0.0-0.3); IMMATURE GRANULOCYTE % 1.7 %; LYMPHOCYTE # 0.6 K/uL (0.8-4.0); LYMPHOCYTE % 6.1 %; MCHC 31.1 gm/dL (32.0-36.5); MONOCYTE # 0.7 K/uL (0.0-1.0); MPV 9.1 fl (9.4-12.4); NEUTROPHIL # (ANC) 7.5 K/uL (1.4-9.0); NEUTROPHIL % 79.4 %; NRBC % 0.2 /100WBC (0-0.00); PLATELET COUNT 296 K/uL (150-450); RBC 3.21 M/uL (3.50-5.50); RDW-CV 14.8 % (11.9-14.6); WBC 9.4 K/uL (4.0-11.0)
--- NOTE | 2016-11-08 04:21 | NUR ---
Significant Event: A/O X3, VSS ON 3L OF O2 NC AND BI-PAP BY NIGHT. CLEAR AND DIM. NO BM. ON D2W AT 50ML/HR. NPO FOR POSSIBLE AMPUTAION OF THE RIGHT LEG. IRRITABLE AND RESTLESS FOR PARTIAL OF THE NIGHT. NO PRNS GIVEN. Follow up:SWALLOW STUDY AND CONSULT FOR POSSIBLE AMPUTATION OF THE RIGHT LEG.
--- NOTE | 2016-11-08 08:28 | NUR ---
A - NUTRITION F/U. PT ORIENTED X 3. O2 PER NC DURING DAY, BIPAP AT NOC. GLU 198, BUN/GUT SNATCHER 29/1.6, ALB 1.7. PT W/ 1+ UE EDEMA AND 2+ RLE EDEMA. ST SIMMS COMPLETED 11/06, RECOMMENDING PUREE W/ NECTAR LIQUIDS. INTAKE HAS BEEN 25-100% DURING ADMISSION. PT IS CURRENTLY NPO FOR POSSIBLE RLE AMPUTATION. D - AT RISK W/ INCREASED NUTRIENT NEEDS R/T MULTIPLE O/A'S AND RECENT LAKA. I - GOAL: 50-75% INTAKE OR BETTER BY DISMISSAL. M/E - PT WAS RECEIVING GLUCERNA TID...WILL CHANGE TO MIGHTY SHAKES TID WHEN DIET RESUMES. WILL F/U IN 2-3 DAYS.
--- NOTE | 2016-11-08 14:34 | NUR ---
Met with patient at bedside. Introduced myself and explained my role with the CM department. Patient states he thinks he made the SLIP MIXER mad because he yelled at her. He said he did not mean to yell at her. I asked him about assistive devices at home and he states he has a wheelchair for home and the bathrooms are handicap accessible. He asked me to call his to come and get him because he wants to leave this place. He appears to be slightly confused this afternoon per his nurse Alicia. She states he did not make anyone mad today. I did call his Audrey to talk to her about assistive devices at home, but I had to leave her a voice mail. I let patient know that I called her and left her a message. This seemed to help ease his worries at this time. CM will continue to follow and offer supports.
--- NOTE | 2016-11-08 16:32 | NUR ---
Significant Event: PT A&O x3, confused, forgetful, irritable and agitated at times. VSS, O2 at 3L per nasal cannula. R)upper arm PICC patent. Tylenol and ultram given last at 1300 for pain, minimal relief. Dressing changed to R)lower leg this shift. Dressing applied to L)lower arm. Swallow study done this shift, diet changed to mechanical soft and nectar thick, small sips and dry swallow. PT repositioned frequently side to side with lift, up to chair with lift. Moisture barrier applied to buttocks. NPO after midnight for angiogram tomorrow. Follow up:
--- NOTE | 2016-11-08 20:51 | NUR ---
PT REFUSED TO WEAR HIS BIPAP TONIGHT AND IS CURRENTLY ON 2L NC.
[2016-11-09 04:36] LABS: BASOPHIL # 0.1 K/uL (0.0-0.2); BASOPHIL % 0.6 %; EOSINOPHIL # 0.5 K/uL (0.0-0.5); HEMATOCRIT 28.8 % (37.0-53.0); HEMOGLOBIN 9.2 g/dL (11.0-16.0); IMMATURE GRANULOCYTE # 0.2 K/uL (0.0-0.3); IMMATURE GRANULOCYTE % 2.4 %; LYMPHOCYTE # 0.6 K/uL (0.8-4.0); LYMPHOCYTE % 6.2 %; MCH 28.8 pg (27.0-34.0); MCHC 31.9 gm/dL (32.0-36.5); MCV 90.3 fl (83.0-98.0); MONOCYTE # 0.7 K/uL (0.0-1.0); MONOCYTE % 7.8 %; MPV 8.9 fl (9.4-12.4); NEUTROPHIL # (ANC) 7.3 K/uL (1.4-9.0); NRBC % 0.2 /100WBC (0-0.00); PLATELET COUNT 335 K/uL (150-450); RBC 3.19 M/uL (3.50-5.50); RDW-CV 14.6 % (11.9-14.6); WBC 9.4 K/uL (4.0-11.0)
--- NOTE | 2016-11-09 05:32 | NUR ---
Significant Event: A/O X3, WILL HAVE BOUTS OF IRRITABILITY AND FORGETFULLNESS. VSS ON 3L NC AND 4L ON BI-PAP DURING THE NIGHT. CLEAR AND DIM. BI-PAP ON FOR MOST OF THE NIGHT, SP DRAINED 1234, NO BM. D5W AT 50ML/HR. Follow up: ANGRIOGRAM TODAY. WOULD LIKE TO KNOW TIME OF PROCEDRUE IF BEFORE 0900.
[2016-11-09 09:49] LABS: ANION GAP 9.5 (10.0-19.0); CALCIUM 8.7 mg/dL (8.5-10.5); PHOSPHORUS 3.1 mg/dL (2.5-4.9); POTASSIUM 4.5 mMol/L (3.7-5.1)
[2016-11-09 09:50] LABS: ALBUMIN 1.8 gm/dL (3.5-5.0)
[2016-11-09] MEDS ORDERED: MOTRIN800 MG PO (09:51)
--- NOTE | 2016-11-09 14:47 | NUR ---
Significant Event:PT IS AAOX3. WAS VERY IRRITABLE THIS AM. BUT HAS SINCE IMPROVED. FOLLOWS COMMANDS. N/T TO R) LOWER LEG. DRSG CHANGED TO R) LOWER EXT. LUNG SOUNDS CLEAR TO CLEAR AND DIMINISHED. PATIENT ON 3L NC WHEN AWAKE AND BIPAP WHEN SLEEPING. SUPRAPUBIC DRAINING. NPO FOR ANGIOGRAM. PICC R) UPPER ARM. Follow up:
--- NOTE | 2016-11-10 05:19 | NUR ---
Significant Event: Follow up: PATIENT A/OX3 BUT STILL SHOWS SIGNS OF CONFUSION, 3L NC, PICC LINE, VITAL SIGNS WNL, LEFT CATH SITE WNL, LEFT LEG AMPUTATED, DRESSING CHANGED PER ORDER, MOVES UPPER EXTRIMITES, SUPRAPUBIC NUNO IN PLACE WITH GOOD OUPUT, NO BM
[2016-11-10 06:38] LABS: BASOPHIL # 0.1 K/uL (0.0-0.2); BASOPHIL % 0.6 %; EOSINOPHIL # 0.4 K/uL (0.0-0.5); EOSINOPHIL % 4.7 %; HEMATOCRIT 26.3 % (37.0-53.0); HEMOGLOBIN 8.3 g/dL (11.0-16.0); IMMATURE GRANULOCYTE # 0.2 K/uL (0.0-0.3); IMMATURE GRANULOCYTE % 1.9 %; LYMPHOCYTE # 0.6 K/uL (0.8-4.0); LYMPHOCYTE % 7.5 %; MCH 28.7 pg (27.0-34.0); MCHC 31.6 gm/dL (32.0-36.5); MONOCYTE # 0.7 K/uL (0.0-1.0); MONOCYTE % 8.6 %; MPV 8.6 fl (9.4-12.4); NEUTROPHIL # (ANC) 6.5 K/uL (1.4-9.0); NEUTROPHIL % 76.7 %; NRBC % 0 /100WBC (0-0.00); PLATELET COUNT 284 K/uL (150-450); RBC 2.89 M/uL (3.50-5.50); RDW-CV 14.6 % (11.9-14.6); WBC 8.5 K/uL (4.0-11.0)
[2016-11-10 06:54] LABS: ANION GAP 11.9 (10.0-19.0); CALCIUM 8.7 mg/dL (8.5-10.5); CREATININE 1.6 mg/dL (0.6-1.3); PHOSPHORUS 2.6 mg/dL (2.5-4.9); POTASSIUM 3.9 mMol/L (3.7-5.1)
--- NOTE | 2016-11-10 16:04 | NUR ---
Significant Event: A/O X3, cooperative, follows commands, turn q2hr, full lift, L)AKA stump hanh wrap D/I, LLE elevated on towel, R)foot dakins wet to dry drsg changed, doppler post.tib pulse. lungs dim BLL, o2 3-4l/nc, R)PICC patent, BLE neuropathy. mech. soft cardiac diet/nectar thick liquids, small BM today, suprapubic catheter patent, L)groin guaze/tegaderm D/I. pressure ulcer to coccyx. Follow up: Keep O2 sat >90%, Bipap at night accuchecks q6hr,
--- NOTE | 2016-11-10 18:44 | NUR ---
Significant Event: VITALS TAKEN, STABLE WITH O2 AT 3L PER NC. A/O X3, CONVERSATIONAL AND APPROPRIATE WITH CARE. REPOSITIONED AND UPRGIHT FOR SUPPER. DOING WELL WITH SPEECH THERAPY RECOMMENDATIONS. PICC TO RIGHT UPPER ARM WITH NS AT TKO FOR SCHEDULED IV ATB. L) AKA ELEVATED AND RIGHT FOOT DRESSING C/D/I. TO BE CHANGED THIS EVENING ORDERED, BID WET TO DRY WITH DAKINS SOLUTION. PILLS GIVEN WHOLE IN APPLESAUCE. TURN Q2HR. RAUL NUNO TO DOMINGO. Follow up: TURN Q2HR. PAIN MANAGEMENT. CONT IV ATB AND MONITOR PER PLAN OF CARE. BID DRESSING CHANGES TO RIGHT FOOT ULCERS WITH DAKINS SOLUTION.
[2016-11-11 06:05] LABS: BASOPHIL % 0.6 %; EOSINOPHIL # 0.4 K/uL (0.0-0.5); EOSINOPHIL % 5.3 %; HEMATOCRIT 27.4 % (37.0-53.0); HEMOGLOBIN 8.6 g/dL (11.0-16.0); IMMATURE GRANULOCYTE # 0.1 K/uL (0.0-0.3); IMMATURE GRANULOCYTE % 1.9 %; LYMPHOCYTE # 0.6 K/uL (0.8-4.0); LYMPHOCYTE % 7.9 %; MCH 28.2 pg (27.0-34.0); MCHC 31.4 gm/dL (32.0-36.5); MCV 89.8 fl (83.0-98.0); MONOCYTE # 0.7 K/uL (0.0-1.0); MONOCYTE % 9.3 %; MPV 8.5 fl (9.4-12.4); NEUTROPHIL # (ANC) 5.2 K/uL (1.4-9.0); NRBC % 0 /100WBC (0-0.00); PLATELET COUNT 293 K/uL (150-450); RBC 3.05 M/uL (3.50-5.50); RDW-CV 14.4 % (11.9-14.6)
--- NOTE | 2016-11-11 07:48 | NUR ---
Significant Event: Patient alert and oriented for most of the shift. Confused at times. Agitated with meds. SBP 130s-150s. HR 70s-80s. On 2-3L per NC. 4L BiPap at HS. Left AKA HERBIE wrap C/D/I. Elevated on towel. Right foot dressing changed with Dakins. Dressing C/D/I. Blood sugars in the 400s this shift. Dr. Menezes notified. Rechecked throughout shift. Novalog and Levemir insulins given for coverage throughout shift. Patient now ACHS accuchecks with aggressive sliding scale. Levemir increased to 30units at HS. Right PICC continues patent. IV antibiotics. Suprapubic catheter patent with 700ml uop. Mechanical soft diet with nectar thickened liquids. Turned Q2 with 2 assist. Full lift. Calm and cooperative with all cares. Follow up: Will continue to monitor per plan of care.
--- NOTE | 2016-11-11 14:40 | NUR ---
A - NUTRITION FOLLOW-UP CONFUSED AT TIMES PER SHIFT REPORT, SEEMS APPROPRIATE DURING VISIT THIS PM. S/P L) AKA 11/08. LABS: GLU 207, CREA 1.6, ALB 3.0 MEDS: LEVEMIR, AGG SSI. PT IS ON SEROQUEL DIET: CARDIAC/MECH SOFT/NECTAR THICK W/ MIGHTY SHAKE TID. INTAKE 50% X1 MEAL OUT OF 8 MEALS SINCE 11/08. POOR APPETITE PER PT DUE TO DISLIKING HOSPITAL FOOD AND TEXTURE OF FOOD. HAS BEEN DRINKING MIGHTY SHAKE. LIKES GLUCERNA BETTER BUT NOT ABLE TO SEND DUE TO NECTAR THICK ORDERED. ENCOURAGEMENT GIVEN. EST NEEDS: 0780-2705 KCAL, 85-107 GRAMS PROTEIN, FLUID NEEDS: 1ML/KCAL D - INADEQUATE ORAL INTAKE RELATED TO DECREASED APPETITE SECONDARY TO DISLIKING HOSPITAL FOOD AND TEXTURE OF FOOD EVIDENCED BY 50% X1 MEAL OUT OF 8 MEALS AND PT REPORT. I - 1) DECREASE MIGHTY SHAKE TO BID AND TRIAL MAGIC CUP ONCE DAILY. 2) PLEASE CONSULT IF TF IS DESIRED. MINIMAL NUTRITION SINCE ADMIT NOTED. M/E - GOAL: PT WILL BE ABLE TO TOLERATE >50% OF MEALS AND AT LEAST ONE ORAL SUPPLEMENT PER DAY IN 3-5 DAYS.
--- NOTE | 2016-11-11 16:01 | NUR ---
Significant Event: ALERT. FORGETFUL AT TIMES. GIVEN ULTRAM AND TYLENOL FOR LT. LEG PAIN. SOME RELIEF, HAS BEEN RESTING AT TIMES. CONT. ON IV ANTIBIOTICS. AFEBIRLE. HR SR IN 70'S. [id number]. DRESSING CHANGE TO RT. LEG/FOOT. NUNO PATENT, DRAINS DARK YELLOW URINE. RT. STUMP WITH INTACT LEONIE, OPEN TO AIR. PT. HAS TO REINFORCED TO KEEP LT. STUMP ELEVATED. RT. PICC TL CATH, PATENT. ON 3 LPM ,NC. SATS 95%. DESATS WITH SLEEP. 02 NC. PLACED IN MOUTH AND SATS ARE BETTER. Follow up: CONT.TO MONITER SKIN STATUS.
[2016-11-12 03:39] LABS: ANION GAP 10.6 (10.0-19.0); CALCIUM 9.4 mg/dL (8.5-10.5); CREATININE 1.8 mg/dL (0.6-1.3); PHOSPHORUS 2.2 mg/dL (2.5-4.9); POTASSIUM 3.6 mMol/L (3.7-5.1)
--- NOTE | 2016-11-12 07:31 | NUR ---
Significant Event: PATIENT A/O X3. SBP 150-160 HR 70 O2 SATS 94 ON 2 L PER NASAL CANNULA. PATIENT REFUSED TO WEAR BI-PAP. PATIENT ACCU CHECKS Q4 HR. DAKIN SOLUTION BID TO RIGHT FOOT. PATIENT HAS PICC IN RIGHT UPPER ARM. HEARD OF HEARING. PATIENT C/0 PAIN X1 ULTRAM GIVEN. PATIENT GETTING IV ZOSYN Q8HRS. PATIENT HAS ABOVE KNEE AMPUTAION, OPEN TO AIR. PAIENT HARD OF HEARING. Follow up: FOLLOW CARE PLAN.
--- NOTE | 2016-11-12 17:13 | NUR ---
Significant Event: RESTING IN BED ALL DAY. CONSTANTLY USING CALL LIGHT TO BE REPOSITIONED. COMPLAINS OF PAIN IN BACK AND AT AMPUTATION SITE. RECEIVED TRAMADOL AT 1620. WAS TITRATED DOWN FROM 2L TO 1L O2 VIA NC. RECEIVED INSULIN FOR BG X3. SUPRA PUBIC CATH IN PLACE HAD NO COMPLICATIONS. PATIENT TOLERATES NECTAR THICK LIQUIDS AND TOLERATES SWALLOWING PILLS WELL. WOC CHANGED R) FOOT DRESSING TO WOUND-VAC, GAUZE WRAP, AND ALSO PLACED PATIENT IN FOOT DROP BOOT. WOC APPLIED GAUZE AND STOCKINETTE TO AMPUTATION SITE ON LEFT LEG. PATIENT RECEIVED ZOSYN THROUGH PICC, PICC HAD NO COMPLICATIONS. Follow up:
--- NOTE | 2016-11-13 04:50 | NUR ---
Significant Event: A/O X 3. TURNED APPROXIMATELY EVERY 30 MINUTES PER REQUEST. VERY RESTLESS. REMAINS ON 1L 02, ALL OTHER VSS ON RA, AFEBRILE. WOUND VAC TO RIGHT LEG ZERO OUTPUT, DRESSINGS ON RIGHT LEG AND LEFT AKA DRY/INTACT. ACCU CHECKS Q4 HOURS, HAVE REQUIRED TREATMENT EVERY TIME. ULTRAM GIVEN AT 2220 WITH RELIEF NOTED. FULL LIFT. CONTINUES ON ZOSYN Follow up: CURRENTLY LOOKING FOR PLACEMENT
[2016-11-13 09:46] LABS: ANION GAP 11.8 (10.0-19.0); CALCIUM 9.3 mg/dL (8.5-10.5); CREATININE 1.9 mg/dL (0.6-1.3); PHOSPHORUS 2.6 mg/dL (2.5-4.9); POTASSIUM 3.8 mMol/L (3.7-5.1)
--- NOTE | 2016-11-13 17:04 | NUR ---
Significant Event:Patient alert and forgetful at times. Triple lumen PICC to rt upper arm. Dressing changed to PICC. Suprapubic cath with cloudy yellow urine. Urine cx sent to lab. Dressing changed to lt stump. Incision approximated with randee. O2 at 1L per nasal cannula. Wound vac to rt foot with no output. Open area to rt sacral/buttock area. Aloe vesta applied. AFO boot rt foot. Betadine paint to rt heal wound. Incontinent x3 of formed to loose large BM's.Up in chair with lift. Accuchecks 170,309,259. Started on IV fluids. Follow up:
--- NOTE | 2016-11-14 04:09 | NUR ---
Significant Event: Forgetful. PICC to R) arm. [place] thickened liquids. Mechanical soft. Tylenol at 0320. Ultram at 2353. Incontinet of bowel movement. C-diff negative. Wound vac to R) foot. Suprapubic catheter. Sore to buttock. Accu checks every 4 hours. full lift. Follow up:
[2016-11-14 10:59] LABS: ALBUMIN 2.6 gm/dL (3.5-5.0); ANION GAP 9.9 (10.0-19.0); CALCIUM 8.7 mg/dL (8.5-10.5); CREATININE 1.9 mg/dL (0.6-1.3); PHOSPHORUS 2.9 mg/dL (2.5-4.9); POTASSIUM 3.9 mMol/L (3.7-5.1)
--- NOTE | 2016-11-14 17:26 | NUR ---
Significant Event:Patient alert and forgetful. Triple lumen PICC to rt upper arm. Skin tag to lt forearm partially coming off with moderate amount of bloody drainage. Dressing changed x2. Skin tear to lt elbow. Dressing changed to lt AKA stump. Incision approximated with randee. Incontinent of loose BM x2. Suprapublic cath. O2 at 1L per nasal cannula. Accuchecks 195,221,304.Koppel one tab at 1601. Wound vac to rt foot. Open area to saral area and rt buttock. Follow up:
[2016-11-15 05:11] LABS: ALBUMIN 2.6 gm/dL (3.5-5.0); ANION GAP 8.9 (10.0-19.0); CALCIUM 8.9 mg/dL (8.5-10.5); CREATININE 1.9 mg/dL (0.6-1.3); PHOSPHORUS 2.6 mg/dL (2.5-4.9); POTASSIUM 3.9 mMol/L (3.7-5.1)
--- NOTE | 2016-11-15 05:23 | NUR ---
Significant Event: NORCO AND TRAMADOL GIVEN FOR PAIN. UNTIL ABOUT 0100, THE PT WANTED REPOSITIONED ABOUT EVERY 20 MIN TO 1 HR. HE COULDN'T GET COMFORTABLE AND HIS BUTT HURT. HE RESTED WELL AFTER 0100, THE DRESSING TO HIS L) FA WAS CHANGED AFTER IT WAS COMPLETELY SATURATED WITH BLOOD. O2 REMAINS AT 1L PER NC. INCONT OF MUSHY STOOL X1. SUPRAPUBIC HAD 950ML OF URINE OUT. Follow up:
--- NOTE | 2016-11-15 11:21 | NUR ---
A-NUTRITION F/U C-DIFF NEG. WOUND VAC TO R)FOOT. OA TO SACRAL AREA AND R)BUTTOCK. LABS: NA 140, K+ 3.9, GLU 223, BUN 21, DIRECTOR OF CURRICULUM AND INSTRUCTION 1.9, ALB 2.6 SPEECH IN TO SEE PATIENT THIS AM; RECOMMENDING REGULAR CONSISTENCY OF FOODS AND CONTINUE NECTAR THICK LIQUIDS. LABS: NA 140, K+ 3.9,L 223, BUN 21, DIRECTOR OF CURRICULUM AND INSTRUCTION 1.9, ALB 2.6 MEDS: JOSSELIN KIM (ADJ) SPOKE W/PT RE: MAGIC CUPS. PT STATES, "I LOVED IT." PT WOULD LIKE TO GET THEM MORE THAN ONCE A DAY; AGREEABLE TO BID. PT IS ALSO DRINKING THE MIGHTY SHAKES. PO INTAKE HAS BEEN BITES-100% SINCE LAST F/U. YESTERDAY PO INTAKE IMPROVED TO 75-100%. DIET RX: CONSISTENT CARB/MECH. SOFT DIET W/NECTAR THICK LIQUIDS. MIGHTY SHAKES BID, MAGIC CUP QD. EST NUTR NEEDS: 6180-2034 KCALS AND 85-107 GM PROTEIN D-AT NUTRITION RISK W/INADEQUATE ORAL INTAKE R/T DIFF. SWALLOWING, ALTERED APPETITE AEB INTAKE RECORDS, NEED FOR ALTERED CONSISTENCY OF FOODS/LIQUIDS, PT REPORT. I-1)CONTINUE W/MIGHTY SHAKES BID 2)INCREASE MAGIC CUPS TO BID M/E-GOAL: PO INTAKE >/=50% BY DISCHARGE 1)F/U PO INTAKE, SUPPLEMENT, SKIN, AND POC IN 3-5 DAYS 2)ASSIST NEEDED
--- NOTE | 2016-11-15 12:00 | NUR ---
1140 Came by to see Christophe but had his chart and was reviewing it. [facility] RN was in with Christophe so I will come back by later to see Christophe. In talking with , it sounds like Christophe will needs placement. He was at home prior to this with his as his caregiver, but doesn't think that he will be able to return to this when he is able to do so. Christophe is still on IV Abxs, just had a L)AKA and there is talk of possible R)AKA down the line as well. CM to continue to follow and assist. Plan SNF??
--- NOTE | 2016-11-15 14:00 | NUR ---
[facility] with [facility] about Christophe not having any supplemental funding, ie Medicaid. Asked if she would look into this a bit and also talk with family about possibly getting the process started as he is most likely going to need SNF placment. She tells me she will look into it. I let her know when I talked with Christophe and his , I would also mention to them that she might be contacting them or trying to visit with them about starting Medicaid application. CM to continue to follow and assist.
--- NOTE | 2016-11-15 16:31 | NUR ---
Significant Event: A/OX3, FORGETFUL. VSS ON ROOM AIR. PT. FULL LIFT UP TO CHAIR. REPOSITIONS Q1HR PER PT. REQUEST. NORCO GIVEN @ 0707 AND ULTRAM GIVEN @ 2260 FOR PAIN. WOUND VAC CHANGED TODAY PER WOC. LEAVE RIGHT HEEL OPEN TO AIR, PAINT WITH BETADINE DAILY. FOOT DROP BOOT ON TO RIGHT FOOT. LEFT AKA INCISION SITE IS OPEN TO AIR/LEONIE INTACT, NO DRAINAGE NOTED TO SITE. TRIPLE LUMEN PICC LINE IS SALINE LOCKED. DIET CHANGED TO ADA, REGULAR STILL WITH NECTAR THICKENED LIQUIDS, ORDERED SUPPER. LEFT FOREARM & ELBOW DRESSINGS CHANGED TODAY TO GAUZE/COBAN WRAP, DRESSING C/D/I. LARGE BM X1. ACCUCHECKS CONTINUE Q4HR WITH AGGRESSIVE SSI, TREATED ALL SUGARS. Follow up: CONTINUE WITH POC.
--- NOTE | 2016-11-16 04:33 | NUR ---
A/O. FORGETFUL. VSS. AFEBRILE. PICC R) UPPER ARM. L) STUMP JANENE. WOUND VAC INTACT TO R) FOOT. FOOT DROP BOOT R). ACCUCHECKS Q4 TREATED ALL. TURN 2Q HR. ULTRAM GIVEN x1. FULL LIFT. LARGE INCON BMx1. SUPER PUBIC NUNO INTACT.
[2016-11-16 04:41] LABS: ALBUMIN 2.6 gm/dL (3.5-5.0); ANION GAP 8.8 (10.0-19.0); CALCIUM 8.8 mg/dL (8.5-10.5); CREATININE 1.7 mg/dL (0.6-1.3); PHOSPHORUS 2.4 mg/dL (2.5-4.9); POTASSIUM 3.8 mMol/L (3.7-5.1)
--- NOTE | 2016-11-16 15:05 | NUR ---
1110 Came by to see Christophe but he was sleeping so will come back and see him later. 1500 Came by again to see Christophe but nursing was in working with him so I will try to see him again tomorrow. CM to continue to follow and assist.
--- NOTE | 2016-11-16 16:24 | NUR ---
76 year old male. Full code. A/O X3. Forgetful at times. Accuchecks Q4. PICC to R) upper arm. Unused ports flushed but white port did not have blood return. L) stump open to air and randee intact. Wound vac to R) foot with foot dropboot. Full lift. Diabetic soft diet with nectar thickened fluids. Pain high all shift at 7-8. Moccasin given at 0811 and 1605. Ultram given at 1143. 2 large bowel movements today. Incontinent of the bowels. Suprapubic dawson intact with 450 mL out. Lasix given X1.
--- NOTE | 2016-11-17 04:23 | NUR ---
A/O. FORGETFUL. HR 70-80. SBP 120-130. AFEBRILE. 2L WHILE SLEEPING. L) STUMP JANENE. R) FOOT WOUND VAC AND FOOT DROP BOOT. SUPER PUBIC CATH. FULL LIFT. NORCOx1. ACCUCHECKS Q4HR.
--- NOTE | 2016-11-17 13:19 | NUR ---
Introduced self and CM role to Stuart' , Audrey who was at bedside. Christophe was sleeping during our visit. Talked with Audrey about MDs recommendation that SNF would most likely be needed when Christophe was ready to dismiss. She also agrees with this. States,"I had been taking care of him at home and he was getting around with a FWW at that time so I could handle it, but now that he is a full lift and has this wound vac on, I can't take him home." Gave her the options of all SNFs in [place], she has no preference on which one I look into for potential placement. Let her know I would make referrals to all and see which one might be able to meet his needs. She was again fine with this. I also talked with her about Christophe only having Medicare AB and no supplement. SHe says that she is working with Christopher Benoit) at [facility] here in town to start applying for that but hasn't actually submitted any paperwork yet. I let her know she should try to get that filed as soon as she can in order to help with SNF placement. I also gave her Br[facility] business card so she could potentially help with the Medicaid application as well. Audrey says that she will look into this. Audrey had no other questions at this time. I let her know that I would make referrals to SNFs and then update her. Asked that she work on the Medicaid piece and then we would connect later this week. No other questions, needs or concerns. CM to continue to follow and assist.
[2016-11-17 15:16] LABS: BASOPHIL # 0.1 K/uL (0.0-0.2); BASOPHIL % 1.2 %; EOSINOPHIL # 0.6 K/uL (0.0-0.5); EOSINOPHIL % 6.8 %; HEMATOCRIT 29.4 % (37.0-53.0); HEMOGLOBIN 9.1 g/dL (11.0-16.0); IMMATURE GRANULOCYTE # 0.1 K/uL (0.0-0.3); IMMATURE GRANULOCYTE % 1.1 %; LYMPHOCYTE # 0.7 K/uL (0.8-4.0); LYMPHOCYTE % 8.5 %; MCV 93.6 fl (83.0-98.0); MONOCYTE # 0.6 K/uL (0.0-1.0); MONOCYTE % 7.2 %; MPV 9.1 fl (9.4-12.4); NEUTROPHIL # (ANC) 6.4 K/uL (1.4-9.0); NEUTROPHIL % 75.2 %; NRBC % 0.4 /100WBC (0-0.00); RBC 3.14 M/uL (3.50-5.50); RDW-CV 16.2 % (11.9-14.6); WBC 8.5 K/uL (4.0-11.0)
[2016-11-17 15:18] LABS: PLATELET COUNT 165 K/uL (150-450)
[2016-11-17 15:30] LABS: ALBUMIN 2.5 gm/dL (3.5-5.0); ANION GAP 10.3 (10.0-19.0); CREATININE 1.9 mg/dL (0.6-1.3); PHOSPHORUS 2.9 mg/dL (2.5-4.9); POTASSIUM 4.3 mMol/L (3.7-5.1)
--- NOTE | 2016-11-17 17:35 | NUR ---
Significant Event: A/O, FORGETFUL AT TIMES. 1+ EDEMA IN LOWER AND UPPER EXTREMITIES. AFEBRILE. ON 1L O2 NC THROUGHOUT DAY. DIABETIC DIET, NECTAR THICK LIQUIDS, REFUSED BREAKFAST, ONLY ATE BITES DURING LUNCH, STATES HE IS NOT HUNGRY. RECIEVED PRN ZOFRAN IVP FOR NAUSEA AT 1350. UP TO CHAIR AT 1230. NO BM. RECEIVED PRN PAIN MEDS AT 0836. ACCU CHECK Q4HR, TREATED WITH NOVOLOG x3. NYSTATIN TID ON COCCYX, SCROTUM, AND INNER THIGHS. AKA OPEN TO AIR. WOC CHANGED WOUND VAC ON R) FOOT THIS AFTERNOON, WRAPPED IN GAUZE AND FOOT DROP BOOT APPLIED. SUPRAPUBIC CATH HAS HAD NO COMPLICATIONS, SEDIMENT IN URINE NOTED. R) PICC RUNNING IV ANTIBIOTICS THROUGHOUT DAY, ARM MEASURES 33 CM. DRESSING ON L) FOREARM C/D/I. CURRENTLY UP IN CHAIR. Follow up:
--- NOTE | 2016-11-17 20:27 | NUR ---
PT REFUSED HIS BIPAP AND IS CURRENTLY ON 2L.
--- NOTE | 2016-11-18 04:37 | NUR ---
A&O but forgetful. 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 Repositioned frequently. Full lift. Wound vac to R) lower leg. WOC to see. Foot drop boot in place. Suprapubic cath drains 660. PICC line on R) arm patent triple lumen. VSS on 2L N/C. Appetite is poor. [place] thick liquids used. L) above knee amp SUPERVISOR POWDERED SUGAR, randee intact. No redness noted. To con't with POC.
--- NOTE | 2016-11-18 13:19 | NUR ---
A-NUTRITION F/U WOUND VAC TO R)FOOT. OA TO SACRAL AREA AND R)BUTTOCK. 11/17 WT: 119.9 KG 11/15 WT: 121.4; PT RECEIVED IV LASIX ON 11/16. LABS: NA 140, K+ 4.3, LGU 307, BUN 23, SNAGGER 1.9, ALB 2.5 MEDS: LEVEMIR (ADJ), PO LASIX STARTED 11/18 DIET RX: CONSISTENT CARB W/MECTAR THICK LIQUIDS. MAGIC CUP AND MIGHTY SHAKES BID. LIKES THE SUPPLEMENTS. PO INTAKE OF MEALS REF-100%. EST NUTR NEEDS: [id number] KCALS AND 85-107 GM PROTEIN D-AT NUTRITION RISK W/INADEQUATE ORAL INTAKE R/T ALTERED APPETITE AEB INTAKE RECORDS, PT REPORT. I-1)CONTINUE W/CURRENT SUPPLEMENTS 2)PT IS NOT ABLE TO MEET NUTR. NEEDS W/CURRENT PO INTAKE. IF DESIRED, RECOMMEND PLACING A DOBHOFF AND STARTING ENTERAL FEEDINGS OF GLUCERNA 1.2 WITH A GOAL RATE OF 65 ML/HR. THIS WILL PROVIDE 1872 KCALS, 94 GM PROTEIN, AND 1256 ML FREE WATER. M/E-GOAL: PO INTAKE >/=50% BY DISCHARGE 1)F/U PO INTAKE, WT, AND POC IN 4-5 DAYS 2)ASSIST NEEDED
--- NOTE | 2016-11-18 15:39 | NUR ---
Call from Lacey at [facility], they can't accept Christophe as they can't take someone with a wound vac at this time so they are unable to meet his needs. Will continue to follow and assist.
--- NOTE | 2016-11-18 17:26 | NUR ---
Significant Event: ON 2L O2 VIA NC. WOUND VAC ON R) FOOT, GAUZE DRESSING C/D/I, FOOT DROP BOOT ON. UP TO CHAIR THIS MORNING AND FOR MOST OF THE DAY. DRESSING ON L) FOREARM REMOVED AND CURRENTLY OPEN TO AIR. RECEIVED PRN NORCO AT 1240 FOR PAIN. ACCU CHECK ACHS, TREATED x3. ZOSYN IN PICC DURING DAY. PICC HAS NO COMPLICATIONS. PATIENT HAD XLARGE BM AT 1700, SEMI FORMED, SEMI LIQUID, LIGHT BROWN. Follow up:
--- NOTE | 2016-11-19 01:37 | NUR ---
PT REFUSED TO WEAR HIS BIPAP TONIGHT AND IS CURRENTLY ON 2L.
--- NOTE | 2016-11-19 04:11 | NUR ---
Patient A/Ox3 but can be forgetful. VSS on 2L NC. Full lift, q2hrs repo and elevate heal. PICC RT upper arm, IV antibotics. Lungs clear. Bowel sounds present. Suprapubic cath 900out. Lt leg above the knee amp, randee, open to air. Rt Leg has ulcers on foot, wound vac in place, none out. Betadine to RT heal. Skin issues coccyx ulcers x2, skin tear to lt elbow open to air, scattered bruising. Looking for placement that will take a wound vac. Q4hr Accu checks. [place] thick liquids. [place] for pain last at 0300.
--- NOTE | 2016-11-19 11:15 | NUR ---
Called to talk with Olga re:referral that I had sent over to her earlier this week on Christophe. Olga didn't answer, but Reina did. She says that she didn't have that referral in front of her but she would go look for it over at [facility] and then get back to me on if they could take or not. Gave her a verbal update on Christophe and what he would need as far as a skilled stay goes. She says that she will get back to me later today on if they can take or not. CM to continue to follow and assist.
[2016-11-19 11:34] LABS: ALBUMIN 2.5 gm/dL (3.5-5.0); ANION GAP 10.1 (10.0-19.0); CALCIUM 8.9 mg/dL (8.5-10.5); CREATININE 1.7 mg/dL (0.6-1.3); PHOSPHORUS 2.8 mg/dL (2.5-4.9); POTASSIUM 4.1 mMol/L (3.7-5.1)
--- NOTE | 2016-11-19 15:37 | NUR ---
Significant event: Drowsy this AM, disoriented to T/P. This afternoon, more alert, oriented to T/P, forgetful. On 2L NC. Afebrile. SBP 130-140's. 1+ lower edema. Lungs clear/diminished. Up to chair today. Had two loose BM's, incontinent. [place] to bottom, turning Q2H, has open sore to buttock. Woc changed foot dressing and applied betadine to R) foot ulcer. [place] x 1 and ultram x 1 for L) leg pain. R) PICC good blood return. Follow Up: Continue current POC
[2016-11-20 04:33] LABS: ALBUMIN 2.4 gm/dL (3.5-5.0); ANION GAP 9.9 (10.0-19.0); CALCIUM 8.8 mg/dL (8.5-10.5); CREATININE 1.7 mg/dL (0.6-1.3); PHOSPHORUS 2.4 mg/dL (2.5-4.9); POTASSIUM 3.9 mMol/L (3.7-5.1)
--- NOTE | 2016-11-20 06:54 | NUR ---
Significant Event: A/O X 3 DURING SHIFT, COOPERATIVE WITH CARES. ALL VSS, AFEBRILE. SUPRAPUBIC CATH 800 UOP. NO COMPLICATIONS DURING SHIFT. 1 NORCO GIVEN X 2 WITH RELIEF NOTED EACH TIME. Follow up:
--- NOTE | 2016-11-20 19:08 | NUR ---
DIDIERNAFISA WAS VERY COOPERATIVE AND PATIENT. HE WAS UP AND OUT OF BED TO CHAIR. HE HELPED MOVE WHEN CLEANING UP FOR A BOWEL MOVEMENT. HE IS VERY TALKATIVE AND EASY GOING PATIENT. GOOD DAY!
[2016-11-21 04:44] LABS: ALBUMIN 2.4 gm/dL (3.5-5.0); ANION GAP 8.2 (10.0-19.0); CALCIUM 9.1 mg/dL (8.5-10.5); CREATININE 1.6 mg/dL (0.6-1.3); PHOSPHORUS 2.2 mg/dL (2.5-4.9); POTASSIUM 4.2 mMol/L (3.7-5.1)
[2016-11-21 04:48] LABS: BASOPHIL % 0.6 %; EOSINOPHIL # 0.6 K/uL (0.0-0.5); EOSINOPHIL % 9.4 %; HEMATOCRIT 28.8 % (37.0-53.0); HEMOGLOBIN 8.8 g/dL (11.0-16.0); IMMATURE GRANULOCYTE # 0.1 K/uL (0.0-0.3); IMMATURE GRANULOCYTE % 1.3 %; LYMPHOCYTE # 0.6 K/uL (0.8-4.0); LYMPHOCYTE % 8.7 %; MCH 28.2 pg (27.0-34.0); MCHC 30.6 gm/dL (32.0-36.5); MCV 92.3 fl (83.0-98.0); MONOCYTE # 0.6 K/uL (0.0-1.0); MONOCYTE % 8.9 %; MPV 9.5 fl (9.4-12.4); NEUTROPHIL # (ANC) 4.9 K/uL (1.4-9.0); NEUTROPHIL % 71.1 %; NRBC % 0.3 /100WBC (0-0.00); PLATELET COUNT 166 K/uL (150-450); RBC 3.12 M/uL (3.50-5.50); RDW-CV 16.4 % (11.9-14.6); WBC 6.8 K/uL (4.0-11.0)
--- NOTE | 2016-11-21 05:34 | NUR ---
Significant Event: A/0 X 3. TURNED Q2. ALL VSS ON 2L, AFEBRILE. ZOSYN D/C'D. SUPRAPUBIC CATH 1100 UOP. NO REAL CHANGES IN PLAN OF YET, LOOKING FOR POSSIBLE PLACEMENT THAT WILL ACCEPT WOUND VACS. 1 NORCO GIVEN X 1 AND 1 ULTRAM GIVEN X 1 LAST AT 2250. BLOOD SUGARS REMAIN HIGH IN MID 300'S. Follow up:
--- NOTE | 2016-11-21 18:13 | NUR ---
PATIENT WAS OUT OF BED TO CHAIR TODAY. HE APPETITE HAS DECREASED SINCE YESTERDAY. HE HAS BEEN IN A FAIR AMOUNT OF PAIN IN HIS LEFT LIMB AND REQUESTED PAIN MEDICATION MULTIPLE TIMES TILL 1400/YESTERDAY ONLY REQUESTED PAIN MEDICINE TWICE YESTERDAY. PATIENT HAD A BATH. PATIENT ALSO HAD A BOWEL MOVEMENT TODAY. PATIENT WAS AFEBRILE.
--- NOTE | 2016-11-22 04:34 | NUR ---
Significant Event: COMPLETELY ORIENTED WITH NO CONFUSION. ALL VSS ON 2L O2, AFEBRILE. SUPRPUBIC CATHETER WITH 800 UOP. 1 NORCO GIVEN X 2 LAST AT 0315 FOR LEFT LEG PAIN. REPOSITIONED VERY OFTEN PER PATIENT REQUEST. NO OTHER COMPLICATIONS. RESTED WELL AT TIMES. ACCU CHECKS STILL REMAIN MASOUD IN 200'S Follow up: NEEDS PLACEMENT THAT WILL ACCEPT WOUND VACS
[2016-11-22 05:27] LABS: ALBUMIN 2.4 gm/dL (3.5-5.0); CALCIUM 9.4 mg/dL (8.5-10.5); CREATININE 1.5 mg/dL (0.6-1.3); PHOSPHORUS 2.6 mg/dL (2.5-4.9)
--- NOTE | 2016-11-22 11:14 | NUR ---
Social visit with Christophe. Introduced myself and CM role to him as I talked with his last time and not him as he was sleeping. Let him know that it was recommended that he go to a SNF for a short skilled stay when he dismissed. He was in agreement with this plan. Let him know that I was working with his to get a Medicaid application filled out for him as well. He was again fine with this. He denies any questions, needs or concerns from me at this time. I did call his Audrey, left a her a VM, asking how the Medicaid application was coming along and if she had filed it or not. No call back from her at this time. I also called and followed up with Reina at [facility] in re:to accepting Christophe at [facility]. Reina states that she will have to do some more checking with the DON and also his Medicaid quyen needs to be at least pending before they could take him so we will just keep in touch this week. CM to continue to follow and assist.
--- NOTE | 2016-11-22 13:00 | NUR ---
A-NUTRITION F/U WAITING ON PLACMENT, PER D/C ROUNDING OA TO BUTTOCK, WOUND VAC TO R)FOOT. C/O L)LIMB PAIN. CBW: 122.2 KG; WT IS UP 2.3 KG FROM 11/18 F/U LABS: NA 136, K+ 4.0, GLU 135, BUN 18, HAIR SPRING CUTTER 1.5, ALB 2.4 MEDS: CELEXA, LEVAQUIN, LEVEMIR (ADJ) DIET RX: CONSISTENT CARB W/NECTAR THICK LIQUIDS. MAGIC CUP BID AND MIGHTY SHAKES BID. PO INTAKE 25-75%; AVG OF 51% SINCE LAST F/U. NO REFUSALS NOTED SINCE THEN. D-AT NUTRITION RISK W/INADEQUATE ORAL INTAKE R/T ALTERED APPETITE SECONDARY TO C/O PAIN AEB INTAKE RECORDS, CHART REVIEW. I-CONTINUE W/CURRENT NUTRITION SUPPLEMENTS M/E-GOAL: MAINTAIN PO INTAKE AT >/=50% FOR DURATION OF ADMIT 1)F/U PO INTAKE, WT, AND POC IN 3-5 DAYS 2)ASSIST NEEDED
--- NOTE | 2016-11-22 19:52 | NUR ---
Significant Event: PT ALERT AND ORIENTED TIMES THREE. BATH THIS MORNING TOLERATED WELL. VSS. MOVES UPPER EXTREMITIES AND FOLLOWS ALL COMMANDS. PRESSURE SORE ON THE COCCYX IS OPEN AND MOISTURE BARRIER WAS APPLIED. PERIAREA IS ALSO REDDENED; APPLIED NYSTATIN. WOUND CARE REDRESSED WOUNDS TO THE R) FOOT AND SEVERAL LEONIE WERE REMOVED FROM THE L) AKA. STERISTRIPS WERE APPLIED IN THE PLACE OF THE LEONIE REMOVED. Follow up: CONTINUE TO MONITOR FOR S/S OF INFECTION. MONTIOR I&O AND VS. WAITING ON PLACEMENT.
--- NOTE | 2016-11-23 04:30 | NUR ---
Significant event: Patient is alert and oriented but can be forgetful. Easily reoriented. Suprapubic catheter with 850 out. Mantee 1 tab given at 2252 for leg pain with relief noted. Accuchecks changed to ACHS on a moderate scale. Activase applied to triple lumen PICC x3. Blood return is sluggish but flushes well. Patient turned Q2h and prn per patient request. Patient has been calm and cooperative with care. Follow up: Needs placement that will accept wound vac
[2016-11-23 05:55] LABS: ALBUMIN 2.4 gm/dL (3.5-5.0); ANION GAP 9.3 (10.0-19.0); CALCIUM 9.5 mg/dL (8.5-10.5); CREATININE 1.7 mg/dL (0.6-1.3); PHOSPHORUS 2.9 mg/dL (2.5-4.9); POTASSIUM 4.3 mMol/L (3.7-5.1)
--- NOTE | 2016-11-23 12:17 | NUR ---
Talked with Audrey about the Medicaid application. She states that she talked with [facility] in [facility] on Tuesday and she is helping her get the application done. She says that she still has to bring some papers on Tuesday so they can continue to work on the application, but she is hoping to get it filed and in the system by Thr or Tuesday. Let her know that this was fine. Updated her that [facility] and [facility] have both said no to Christophe, but I am still working with [facility]/ to see if either one of those might be able to accept once his Medicaid application is pending in the system. She voices understanding to this. CM to continue to follow and assist.
--- NOTE | 2016-11-23 16:58 | NUR ---
Significant Event: VSS AND 2-3L/NC. AFEBRILE. NORCO 1 TAB X2 AND ULTRAM X1 FOR RT)FOOT PAIN, WITH RELIEF. NAPS WELL THIS AFTERNOON. BED BATH THIS AM AND WAS LIFTED TO CHAIR, HAD A MOD BM. NUNO WITH 425 MLS UOP, BAG CHANGED D/T LEAKING BY SCHOOL SPEECH LANGUAGE PATHOLOGIST. REPOSITIONED Q2H AND FREQUENTLY PER REQUEST. WOUND VAC TO RT) FOOT INTACT, WOC RN TO CHANGE IT TOMORROW. LT) LEG STUMP WITH LEONIE IS INTACT WITHOUT DRAINAGE NOTED. PT/OT WAS CONSULTED THIS AFTERNOON. TOLERATES REGULAR TEXTURE DIET WITH NECTAR THICKENED LIQUIDS. PICC LINE FLUSHES WELL WITH GOOD BLOOD RETURN TO ALL LUMENS. BS 200-300 RANGE TODAY; LEVEMIR DOSES INCREASED. Follow up: CONTINUE PLAN OF CARE; CM WORKING ON PLACEMENT PLAN.
[2016-11-24 03:28] LABS: ALBUMIN 2.5 gm/dL (3.5-5.0); ANION GAP 10.3 (10.0-19.0); CALCIUM 9.6 mg/dL (8.5-10.5); CREATININE 1.9 mg/dL (0.6-1.3); PHOSPHORUS 3.5 mg/dL (2.5-4.9); POTASSIUM 4.3 mMol/L (3.7-5.1)
--- NOTE | 2016-11-24 04:52 | NUR ---
A/O. FORGETFUL. HR 70-80s. SBP 130-160s. 2L O2. AFEBRILE. REPO 2QHR. NORCO x1 FOR LEG PAIN. L) STUMP STERI STRIP. R) FOOT DROP BOOT AND WOUNDVAC INTACT. SUPER PUBIC CATH. FULL LIFT.
--- NOTE | 2016-11-24 10:40 | NUR ---
Diabetes consult; Received a consult on this patient requesting help with meal selection and to review blood sugars. The patient reports he is not ordering his meals and does not want to at this time. The patient has had poor intake and has been receiving a diabetic diet according to his nurse. This morning his oral intake included a mighty milkshake. He did not attempt to eat anything else. The patient reports "nothing tastes good". Blood sugars are elevated in the mid 200's. The patient reports this is an improvement from blood sugars "in the 300's at home". Levemir dose was increased last evening and his prandial Novolog has been increased. Will continue to trend blood sugars and follow, anticipating he may need an additional increase in insulin tomorrow. Do not recommend any additional insulin changes today. The dietitian is routinely seeing this patient and may have additional insight on ways to improve intake. additional insight as to how to
--- NOTE | 2016-11-24 12:13 | NUR ---
Talked with Brisa in [facility]. She tells me that she submitted Ghazala' Medicaid [place]. yesterday, 11/23, and she gave a list of things that his , Audrey needs to bring into her as additional information. Let her know that I talked with Audrey yesterday and she was planning on bringing that stuff into her today. CM to continue to follow and assist.
[2016-11-24 16:08] LABS: BICARBONATE 39.8 mmol/L (18.0-23.0); PCO2 56 mmHg (35-45); PO2 66 mmHg (80-90)
--- NOTE | 2016-11-24 18:52 | NUR ---
Significant Event: A/O X3 BUT FORGETFUL. UP WITH FULL LIFT. TURN Q2H. WOUND VAC CHANGED BY WOC RN TODAY. RIGHT PICC LINE SL'D, GOOD BLOOD RETURN, DRESSING CHANGED TODAY. C/O GENERALIZED PAIN, NORCO 1 TAB X1. PILLS IN APPLESAUCE. Follow up:AWAITING PLACEMENT
[2016-11-25 03:40] LABS: ALBUMIN 2.4 gm/dL (3.5-5.0); ANION GAP 9.4 (10.0-19.0); CALCIUM 9.2 mg/dL (8.5-10.5); CREATININE 1.9 mg/dL (0.6-1.3); PHOSPHORUS 3.4 mg/dL (2.5-4.9); POTASSIUM 4.4 mMol/L (3.7-5.1)
--- NOTE | 2016-11-25 04:37 | NUR ---
A&O to person, place. Not oriented to time. VSS on 2L. PICC to R upper arm SL. Full lift. ACHS accuchecks. Pt complained of back and bottom pain this am, gave norco 1 tab with no relief and then gave tramadol 25 mg with relief noted. Repositioned q2h. Al[place] vesta applied to bottom. L leg stump steristrips. R foot wound vac, foot drop boot. No BMs. Suprapubic catheter with adequate UOP.
--- NOTE | 2016-11-25 12:55 | NUR ---
A-NUTRITION F/U WENT AND VISITED W/PT RE: APPETITE, INTAKE AND SUPPLEMENTS. PT STATES THAT HE LIKES THE SUPPLEMENTS AND STILL WANTS THEM. HIS LUNCH TRAY WAS ON HIS SIDE TABLE, UNTOUCHED. HE SAID THAT HE DID NOT LIKE ANYTHING ON THE TRAY. REPORTS THAT THE FOOD DOESN'T HAVE A TASTE AND HIS APPETITE IS NOT THERE. PT CURRENTLY DOES NOT SELECT HIS OWN MEALS. ASKED PT WHAT HE USUALLY EATS AT HOME AND WHAT FOODS HE LIKES. PT PICKED TOMATO SOUP AND GRILLED CHEESE SANDWICH OFF OF THE MENU FOR LUNCH; CALLED IN FOR HIM. PT'S COMES TO SEE THE PT IN THE EVENING, PER PT REPORT. DISCUSSED PLAN WITH PT FOR TO HELP HIM PICK OUT HIS MEALS FOR THE NEXT DAY AND CALL THEM AHEAD OF TIME. IF PT'S IS HERE LATER THAN 7:00, THEN THEY CAN WRITE HIS CHOICES DOWN AND HAVE IT CALLED IN THE MORNING. PT WAS AGREEABLE TO THIS PLAN. COMMUNICATED PLAN TO PT'S RN ALSO. REMINDED PT TO LET HIS KNOW THE PLAN ALSO. ENCOURAGED PT TO INCREASE HIS PO INTAKE AND DISCUSSED THE IMPORTANCE OF GOOD NUTRITION FOR HEALING; PT AGREES. CBW IS 122.5 KG; WT IS STABLE. WOUND VAC TO R)FOOT AND L)LEG STUMP WITH STERISTRIPS. LABS: NA 137, K+ 4.4, GLU 196, BUN 31, PLUMBING DESIGNER 1.9, ALB 2.4, CRP 1.82. CRP IS UP FROM PREVIOUS 1.15. MEDS: LEVEMIR AND NOVOLOG ADJUSTED DIET RX: CONSISTENT CARB W/NECTAR THICK LIQUIDS. MIGHTY SHAKES BID AND MAGIC CUP BID. PO INTAKE SINCE LAST F/U HAS BEEN BITES-75% WITH ONE REFUSAL. D-AT NUTRITION RISK W/INADEQUATE ORAL INTAKE R/T ALTERED APPETITE AEB INTAKE RECORDS, PT REPORT. I-1) AND PT WILL GO OVER MENU AND PICK MEALS OUT FOR PT THE NIGHT BEFORE 2)CONTINUE W/CURRENT NUTRITION SUPPLEMENTS M/E-GOAL: PO INTAKE >/=50% BY NEXT F/U 1)F/U PO INTAKE, WT, AND POC IN 4-5 DAYS 2)ASSIST NEEDED
--- NOTE | 2016-11-25 13:29 | NUR ---
Diabetes consult: Reviewed patient blood sugars with Sami Rubi APRN. Patient continues to have elevated blood sugars 250-300 range. The patient reports taking a significant amount of Levemir at home, however I question his compliance with this as his A1C is 11.8%. Patient has a poor appetite, yet following his mighty milk shake for breakfast yesterday his blood sugars increased to over 300, despite receiving Novolog coverage of 10 units. Recommend increasing morning Levemir to 24 units and Novolog prandial to 13 units with meals. The patient has routinely been requiring 4 units of Moderate correction for coverage with each meal. Will continue to follow.
--- NOTE | 2016-11-25 19:24 | NUR ---
Significant Event: FORGETFUL. C/O PAIN TO RIGHT LEG. WOUND VAC INTACT. RIGHT PICC LINE SL'D, GOOD BLOOD RETURN. TURNED FREQUENTLY. FULL LIFT. NECTAR THICKENED LIQUIDS. 2L O2 NC. Follow up:
--- NOTE | 2016-11-26 03:24 | NUR ---
Oriented but forgetful at times. Repositioned Q2. V/S unremarkable on 2L. PICC site to R) upper arm. Accuchecks ACHS moderate scale. No c/o of pain. Wound vac to R) foot. R) foot drop boot in place. [place]/steri strips to L) amputation JANENE. Nystatin to buttocks. Suprapubic cath in place 575 output. Yellow discharge noted on suprapubic entry and cath cares completed.
[2016-11-26 06:31] LABS: ALBUMIN 2.4 gm/dL (3.5-5.0); CALCIUM 9.6 mg/dL (8.5-10.5); CREATININE 1.7 mg/dL (0.6-1.3); PHOSPHORUS 3.2 mg/dL (2.5-4.9)
--- NOTE | 2016-11-26 09:19 | NUR ---
[facility], she says that , Audrey brought in the needed paperwork to her that she needed. Brisa plans to call into [facility] on Tuesday to see if Ghazala hernandez has a master case # and then if it does, send in the rest of the information and update me after that. Asked her to update me as soon as it was pending or had a master case # so I could move forward with updating SNFs to try to get Christophe to one of them. CM to continue to follow and assist. Plan SNF.
--- NOTE | 2016-11-26 16:25 | NUR ---
Significant Event:vss.2l per nc.norco, and tylenol given x1 this shift for c/o headache, and back pain. please see emar for times.repositioned every 2 hours side to side.full lift. woc rn here this am to change wound vac to rt leg.waiting on placement.needs encouragement, and help to eat. Follow up:will continue to monitor per plan of care.
--- NOTE | 2016-11-26 23:23 | NUR ---
REFUSED TO WEAR HIS BIPAP NOTIFIED FROM PATIENT SPOUSE. PT IS CURRENTLY ON 3L NC.
[2016-11-27 03:30] LABS: ALBUMIN 2.4 gm/dL (3.5-5.0); ANION GAP 10.2 (10.0-19.0); CALCIUM 9.1 mg/dL (8.5-10.5); PHOSPHORUS 3.5 mg/dL (2.5-4.9); POTASSIUM 4.2 mMol/L (3.7-5.1)
--- NOTE | 2016-11-27 05:15 | NUR ---
Significant Event: A/O, VSS, 2L O2, afebrile, repositioned Q2hr, foot drop boot on R)side, and dressing intact, wound vac intact, L)stump JANENE, staple/steri strips intact, suprapubic catheter had 400ml out, [place] given x3 and Ultram x1 with minimal relief, however patient was able to sleep throughout night Follow up: awaiting placement, continue plan of care
--- NOTE | 2016-11-27 17:21 | NUR ---
Significant Event: VSS AND 2L/NC. AFEBRILE. NORCO 1 TAB X2 AND ULTRAM X2 FOR RT)FOOT PAIN, WITH RELIEF. NAPS WELL THIS AFTERNOON IN CHAIR AND WHEN RETURNED TO BED. PROVIDED MIRALAX WITH ONLY SMEAR FOR BM. 450 MLS URINE OUT, REPOSITIONED Q2H AND FREQUENTLY PER REQUEST. WOUND VAC TO RT) FOOT INTACT, WOC RN TO CHANGE TUESDAY. LT) LEG STUMP WITH LEONIE/STERI STRIPS IS INTACT WITHOUT DRAINAGE NOTED. TOLERATES REGULAR DIET WITH NECTAR THICKENED LIQUIDS; HOWEVER, HAS DIMINISHED APPETITE. PICC LINE FLUSHES WELL WITH GOOD BLOOD RETURN TO ALL LUMENS. BS [phone]. Follow up: CONTINUE PLAN OF CARE; MEDICARE/MEDICAID PAPERWORK HAS BEEN SUBMITTED.
[2016-11-28 03:36] LABS: ALBUMIN 2.3 gm/dL (3.5-5.0); ANION GAP 8.3 (10.0-19.0); CALCIUM 9.2 mg/dL (8.5-10.5); CREATININE 2.1 mg/dL (0.6-1.3); PHOSPHORUS 3.5 mg/dL (2.5-4.9); POTASSIUM 4.3 mMol/L (3.7-5.1)
--- NOTE | 2016-11-28 04:46 | NUR ---
Significant Event: A/O, VSS, 2L, [place] x2, rating pain 5-7/10, reposition Q2hr, c/o of sore/dry mouth, suprapubic cath had 510ml out, wound vac in place to R)foot, PICC has good blood return to all lumens, HS accucheck 172 Follow up: continue to await placement
[2016-11-28 10:59] LABS: BASOPHIL # 0.1 K/uL (0.0-0.2); BASOPHIL % 0.5 %; EOSINOPHIL # 0.6 K/uL (0.0-0.5); EOSINOPHIL % 6.6 %; HEMOGLOBIN 9.1 g/dL (11.0-16.0); IMMATURE GRANULOCYTE # 0.1 K/uL (0.0-0.3); IMMATURE GRANULOCYTE % 0.9 %; LYMPHOCYTE # 0.7 K/uL (0.8-4.0); LYMPHOCYTE % 6.8 %; MCH 28.7 pg (27.0-34.0); MCHC 31.4 gm/dL (32.0-36.5); MCV 91.5 fl (83.0-98.0); MONOCYTE # 0.7 K/uL (0.0-1.0); MONOCYTE % 7.3 %; MPV 8.7 fl (9.4-12.4); NEUTROPHIL # (ANC) 7.5 K/uL (1.4-9.0); NEUTROPHIL % 77.9 %; NRBC % 0 /100WBC (0-0.00); PLATELET COUNT 179 K/uL (150-450); RBC 3.17 M/uL (3.50-5.50); RDW-CV 15.8 % (11.9-14.6); WBC 9.6 K/uL (4.0-11.0)
--- NOTE | 2016-11-28 18:00 | NUR ---
Significant Event: VSS on 1L/NC. AFEBRILE. NORCO 1 TAB X2 AND ULTRAM X1 FOR RT)FOOT PAIN/BILAT LEG PAIN, WITH RELIEF. NAPS WELL THIS AFTERNOON IN CHAIR AND WHEN RETURNED TO BED, BUT SOMEWHAT RESTLESS. PROVIDED MIRALAX THICKENED, BUT LAST SIGNIFICANT BM WAS 11/23/2016. 450 MLS URINE OUT, REPOSITIONED Q2H AND FREQUENTLY PER REQUEST. WOUND VAC TO RT) FOOT INTACT, WOC RN TO CHANGE TUESDAY. LT) LEG STUMP WITH LEONIE/STERI STRIPS IS INTACT WITHOUT DRAINAGE NOTED. TOLERATES REGULAR DIET WITH NECTAR THICKENED LIQUIDS; HOWEVER, HAS DIMINISHED APPETITE. NURSES TO ORDER FOR PATIENT; LIST OF FAVORITE FOODS IN ROOM. PICC LINE FLUSHES WELL WITH GOOD BLOOD RETURN TO ALL LUMENS. BG [phone]. Follow up: CONTINUE PLAN OF CARE; MEDICARE/MEDICAID PAPERWORK HAS BEEN SUBMITTED. ORDER RECEIVED TO TRANSFER TO MSU.
--- NOTE | 2016-11-29 00:38 | NUR ---
Significant Event: Patient is alert and oriented. VSS on 1L. Complains of headache /. [place] given x1 with relief noted. Wound vac in place. L) AKA ster-strips and randee intact. Suprapubic catheter in place. Transferred to MSU at 2310. Report given to Lacey.
--- NOTE | 2016-11-29 04:21 | NUR ---
Significant Event: Patient alert and oriented to person and place. Transferred from PCU at 2310. 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 R) foot covered right now, WOC to change dressing today? Foot drop boot on R) foot. FUll lift. REpostiion every 2 hours. On 2 liters oxygen right now. VSS. Telemetry on. No calls. PICC to R) upper arm. Saline locked. Suprapubic cath. Sores to buttocks. Hx CABG, DM and stroke, R) sided weakness. ACHS accuchecks. NEctar thick liquids. Full code. Goes by Venkat Follow up: REposition, monitor dressing
[2016-11-29 06:11] LABS: ALBUMIN 2.2 gm/dL (3.5-5.0); CALCIUM 9.5 mg/dL (8.5-10.5); PHOSPHORUS 3.3 mg/dL (2.5-4.9)
--- NOTE | 2016-11-29 13:29 | NUR ---
Met with Emily ALEJANDRE who was following patient while he was on PCU. She states that Brisa with [employer] is working on getting patient Medicaid. I followed up with Brisa and she states she is waiting to hear on Medicaid. Once she has a master case plan number she will let me know because patient would be able to go to a longterm facility once they have the master case number. I briefly met with patient this morning. I will go back and visit with him later today and hope to catch his there. Per Emily she had [facility] and she said once they know that he is Medicaid pending they will look at him for a resident. Will continue to follow and offer supports.
--- NOTE | 2016-11-29 14:32 | NUR ---
A-NUTRITION F/U SORES TO BUTTOCKS, WOUND VAC TO R)FOOT, L)AKA. CBW: 114.3 KG; WT DOWN 8.2 KG X 5 DAYS??? QUESTION DIFFERENT SCALES, ERROR. LABS: NA 139, K+ 4.0, GLU 67, BUN 35, STICK WELDER 2.0, ALB 2.2 MEDS: LEVEMIR ADJUSTED DIET RX: CONSISTENT CARB W/NECTAR THICK LIQUIDS. MAGIC CUP AND MIGHTY SHAKES BID. PO INTAKE BITES-50%. VISITED W/PT RE: APPETITE, MEAL ORDERING. PT STATES HIS APPETITE IS NOT GOOD. HE DOES LIKE THE MIGHTY SHAKES AND MAGIC CUPS AND WOULD LIKE TO CONTINUE TO RECEIVE THEM. PT'S IS NOT HELPING TO ORDER MEALS AHEAD OF TIME. WHILE IN ROOM, GOT PT'S DINNER ORDER AND BREAKFAST ORDER FOR TOMORROW. D-AT NUTRITION RISK W/INADEQUATE ORAL INTAKE R/T ALTERED APPETITE AEB INTAKE RECORDS, WT LOSS. I-1)CONTINUE W/CURRENT NUTRITION INTERVENTIONS 2)PT UNABLE TO MEET NUTR. NEEDS WITH PO INTAKE; IF DESIRED RECOMMEND PLACING A DOBHOFF AND STARTING ENTERAL FEEDINGS. M/E-GOAL: PO INTAKE >/=50% PRIOR TO DISCHARGE 1)F/U PO INTAKE, SUPPLEMENT, WT, AND POC IN 3-5 DAYS 2)ASSIST NEEDED
--- NOTE | 2016-11-29 15:29 | NUR ---
I met with patient at 1415 and introduced myself to him. I explained my role with the CM department to him. He states that his is usually here in the morning between 9-10am and in the evenings. I will try to meet with him and his tomorrow morning. Still waiting for Brisa with [place] to get a master case number with his Medicaid so then I can start looking for placement for him.
--- NOTE | 2016-11-29 16:09 | NUR ---
Significant Event:Is awake but gets confused & forgetful at times.Has SP catheter drning yellow urine with some sediment.Has tele on,no calls.Rt.foot drop boot.Rt.foot drsg changed by [facility] nurse today.Has wound vac to Rt.ankle.Has been up to chair using the full lift.Lt.stump incision intact with randee.Has occ.prod.cough.Has Rt.sided weakness from previous stroke.Skin tears on arms & bottom. Follow up:
--- NOTE | 2016-11-30 02:51 | NUR ---
Patient is alert but confused. Full lift, repo Q2 hrs, sores on his buttocks. Has a scant amount of stool so far this shift. Suprapubic catheter. ACHS accuchecks, no coverage needed. Wound vac to R) ankle, was changed yesterday. L) AKA steri-strips. Tele with no calls. Foot drop boot to R) foot. Tylenol given for a headache. PICC in R) upper arm is saline locked. [place] thickened liquids, takes pills in applesauce. Nystatin ointment to groin.
--- NOTE | 2016-11-30 10:30 | NUR ---
1000 Phone call placed to Brisa with [employer] to see if patient has a master case number for Medicaid yet. She called me back at 1010 and states patient is Medicaid pending and master case number is [id number]. [id number] I called Olga at [facility] at [phone] and informed her that patient is Medicaid pending. She asked me to forward updated information to Reina at [facility] and they will reassess patient. I faxed updated information to Reina at [phone] (Fax Number). Will wait to hear back from Reina or Olga.
[2016-11-30 10:49] LABS: ALBUMIN 2.3 gm/dL (3.5-5.0); ANION GAP 9.1 (10.0-19.0); CALCIUM 9.5 mg/dL (8.5-10.5); CREATININE 1.9 mg/dL (0.6-1.3); PHOSPHORUS 2.7 mg/dL (2.5-4.9); POTASSIUM 4.1 mMol/L (3.7-5.1)
--- NOTE | 2016-11-30 14:06 | NUR ---
Diabetes Center note: 1400 For past 2 days, CDE has evaluated blood sugars, overall blood sugars are trending downward, with occassional blood sugar over 200. Nurses report patient has made better food choices. Current Insulin regimen includes Levemir 40 units daily and Novolog 13 units with each meal PLUS Moderate sliding scale. Will continue to follow.
--- NOTE | 2016-11-30 17:28 | NUR ---
Significant Event:Is A/O but gets confused & forgetful at times.Has upper Rt.arm PICC.Has SP cath drning yellow urine with sediment.Had invol sm.to mod.loose stool.Has wound vac Rt.ankle.Lt.leg stump with steristrips.Has foot drop boot.Is full lift.Sore periarea & bottom.Has tele on,no calls.On accuchecks.Had norco earlier for DANG which did help. Follow up:
--- NOTE | 2016-11-30 23:07 | NUR ---
PT REFUSED TO WEAR HIS BIPAP TONIGHT ONCE AGAIN. THIS HAS BEEN AN ONGOING ISSUE WITH NON COMPLIANCE, PT IS CURRENTLY ON 2L NC.
--- NOTE | 2016-12-01 04:10 | NUR ---
SIGNIFICANT EVENT: Pt alert, oriented. Sleepy at times. VSS on 2L. PICC to R)UA is SL. Full lift. Suprapubic catheter. L)AKA. R)Ankle wound vac. Pills can be taken whole in applesauce. [place] thick liquids. ACHS accuchecks. No coverage needed. Incontinent of stool at times. Q2H reposition. [place] given x1 at 0201. Pleasant and cooperative with cares.
--- NOTE | 2016-12-01 09:23 | NUR ---
Diabetes consult: Patient with blood glucose trends much improved over the last two days. Blood sugars ranging from 122-179. Will continue to monitor and assist as needed.
--- NOTE | 2016-12-01 10:05 | NUR ---
0800 VM left last night from Olga Admission coordinator at [facility] asking me to call her. [phone] returned call to Olga, but had to leave her a voicemail. [phone] spoke to Enrique Spencer APRN and Ailin Dangelo APRN following with patient and they both state that ID doctors are to see him today and then he will be ready for discharge. Will wait to hear back from Olga and wait to see what ID doctors recommend for patient before moving forward with discharge. If [facility] or [facility] cannot accept patient will have to make more referrals to facilities since [facility] and [facility] have already declined acceptance.
[2016-12-01 11:44] LABS: ANION GAP 9.2 (10.0-19.0); CALCIUM 9.8 mg/dL (8.5-10.5); CREATININE 1.8 mg/dL (0.6-1.3); POTASSIUM 4.2 mMol/L (3.7-5.1)
--- NOTE | 2016-12-01 13:57 | NUR ---
Significant Event: Pt c/o intermittent bilat leg pain, some relief with [place] and repositioning. WOC changed right lower leg wound vac dressing and allyvn dressings to right foot. Up in recliner for a few hours with lift. Repositioned q 2-3 hrs while in bed. PICC to right arm. S.P. site has an open sore from tubing rubbing on skin, repositioned tube. Bed zero'd for daily wt. Follow up: PT MUST BE A DAILY WT AND CHARTED Q AM
--- NOTE | 2016-12-01 14:30 | NUR ---
Phone call from Olga at [facility] stating they cannot accept patient because of the wound vac. The wound vac is not a qualifier for a skilled stay so the will not be reimbursed from Medicaid or Medicare for his care related to the wound vac so they will be out money if they accept him. [phone] Phone call placed to patient's Audrey, but had to leave a voice mail for her to call me. I need to discuss other options for placement with her. Will wait to hear back from here.
[2016-12-02 05:07] LABS: ANION GAP 10.1 (10.0-19.0); CALCIUM 9.3 mg/dL (8.5-10.5); CREATININE 1.9 mg/dL (0.6-1.3); POTASSIUM 4.1 mMol/L (3.7-5.1)
--- NOTE | 2016-12-02 05:13 | NUR ---
Significant Event: Patient alert and oriented X4. Forgetful at times, will call and then forget why he called. Full lift. Daily weight. Please zero bed daily when pt is in chair. R) foot drop boot on when in bed, R) wound vac, no drainage this shift. L) AKA open to air. Reposition every 2 hours. Suprapubic cath with 725 out. Alove vesta to buttocks with turns. Pills whole in applesauce. ACHS accuchecks. [place] thick diet. Needs help with eating. Gave 1 norco at bedtime. On 3 liters oxygen tonight per RT. Open R) groin. PICC to R) upper arm, dressing and caps changed this shift. Follow up: [facility] PICC
--- NOTE | 2016-12-02 09:53 | NUR ---
A - NUTRITION F/U. FORGETFUL. GLU 130, BUN/CARDIAC TECH 29/1.9. WT STABLE AT 114.1 KG. PT W/ 1+ EDEMA T/O. PT W/ L) AKA, PU TO COCCYX, WOUND VAC TO R) ANKLE. DIET: DIABETIC W/ NECTAR LIQUIDS. INTAKE IMPROVED TO 50-100%. PT RECEIVING MAGIC CUP QD AND MIGHTLY SHAKES BID. PT LIKES HIS SUPPLEMENTS. D - AT RISK W/ INCREASED NUTRIENT NEEDS R/T ALTERED SKIN INTEGRITY AEB ABOVE MENTIONED SKIN ISSUES. I - GOAL: CONT 50-100% INTAKE. M/E - WILL CONT TO MONITOR INTAKE AND ASSIST NEEDED. F/U IN 4-6 DAYS.
--- NOTE | 2016-12-02 14:00 | NUR ---
Phone call to patient's Audrey at 0916. No answer. HILL Xiong assisted me by sending a referral to [facility] for patient since none of the nursing homes here in [place] will accept him. 1320 Phone call to on her cell phone at [phone]. Left he a message asking her to call me. 1355 Phone call from Audrey. I explaied to her that none of the care home facilities here in [place] can accept patient so I need to look outside the [place] community. I informed her that I made a referral to [facility] and she was in agreement with this. She asked me to make referrals to whatever facilities that I want because she does not know anything about them in surrounding communities. I will start by making additional referrals to [facility], and [facility]. Will wait to hear back from these facilities on acceptance of patient.
--- NOTE | 2016-12-02 16:00 | NUR ---
Significant Event: pt alert but forgetful at times. calss freq to be repositioned. up in the recliner this shift before lunch. has slept well this afternoon in the chair. sp cath intact drained 400. foot drop boot on rt foot. incison to lt stump has steri strips intact. accuchecks ac and hs. norrco for pain. didnt take any for me. pcii line in rt upper arm. flushed well for iv zofran this am. full lift for transfer. wound vac to rt foot. 02 down to 2 lpm/nc this afternoon. takes pills whole. waiting for placement. Follow up:
--- NOTE | 2016-12-03 04:13 | NUR ---
Significant Event: Patient alert and oriented x4 but forgetful at times. Reorients easily. FUll lift. Daily weight. Please zero bed when pt is in chair during day. Foot drop boot and wound vac to R) foot. L) AKA. Reposition every 2 hours. [place] thick liquids. Vitals stable and on 2 liters oxygen. Telemetry on, no calls. PICC to R) upper arm. Saline locked. [place] given at bedtime. PIlls whole in applesause. SP cath. Looking for placemtn. Follow up: Reposition often
--- NOTE | 2016-12-03 10:11 | NUR ---
Contacted Kelly at [facility] in [place] regarding referral. Faxed patient's information to her. She will let me know what they think once she reviews the information. Also contacted BRANNON Pichardo at [facility] and faxed her patient's information. She will also let me know her thoughts once she reviews the information. Will wait to hear back from both of them.
--- NOTE | 2016-12-03 16:44 | NUR ---
Significant Event: patient alert and oriented, forgetful at times. c/o bilateral hip and back pain, received norco 1 tab at 1345 with minimal relief. up to chair and returned to bed with use of lift, repositioned approximately every 2 hours. woc nurse changed wound vac and dressings to r) foot/ankle. foot drop boot to r) foot. steri-strips intact to l) stump incision. supra-pubic catheter cares done, had 550ml out of catheter. triple lumen picc to r) upper arm, patent with good blood return. patient assisted with meals. Follow up: daily weight, to have renal panel daily in am.
--- NOTE | 2016-12-04 04:06 | NUR ---
Patient is alert and oriented but can be confused. Full lift, L) AKA, wound vac to R) ankle was changed yesterday. Stump is steri-striped and open to air. He has a supra pubic catheter but I also think he might leak out of his penis. He had one episode of his chucks being saturated. R) arm PICC is saline locked. ACHS accuchecks. Has a foot drop boot to R) foot. Oxygen at 2L. [place] thickened liquids and takes meds in applesauce. Looked at care management notes, he has Medicaid pending but no facility in [place] has accepted because of the wound vac.
[2016-12-04 06:10] LABS: ALBUMIN 2.4 gm/dL (3.5-5.0); ANION GAP 9.1 (10.0-19.0); CALCIUM 9.4 mg/dL (8.5-10.5); CREATININE 1.9 mg/dL (0.6-1.3); POTASSIUM 4.1 mMol/L (3.7-5.1)
--- NOTE | 2016-12-04 16:36 | NUR ---
Significant event: Turned every 1-2 hours. PICC to right arm saline locked. Suprapubic catheter with light yellow urine, chux underneath was wet once. Wound vac intact to right foot. Left stump with steri-strips intact. Rectal area red aloe vesta applied. Appetite poor, encouraged to eat more. Takes nectar thickened liquids. Up to chair per lift and 2 assist.
[2016-12-05 05:47] LABS: ALBUMIN 2.5 gm/dL (3.5-5.0); ANION GAP 9.1 (10.0-19.0); CALCIUM 9.4 mg/dL (8.5-10.5); CREATININE 1.9 mg/dL (0.6-1.3); PHOSPHORUS 3.2 mg/dL (2.5-4.9); POTASSIUM 4.1 mMol/L (3.7-5.1)
--- NOTE | 2016-12-05 07:55 | NUR ---
Significant Event: Pt drowsy this shift. Repostioned throughout the night. Bottom red, scrotum excoriated as well. Likes to drink fresh water, needs nectar thick liquids, takes pills whole in applesause. Triple lumen picc to right upper arm is saline locked, caps changed early this morning with nurse draw. Urine remains cloudy with white sediment. No measurable out put from Wound Vac. Last repositioned at 0530. Follow up:
--- NOTE | 2016-12-05 18:30 | NUR ---
Significant event: Up to chair with full lift. Turned q 2 hours while in bed. Redness to perineal area. Stump has sterir-strips intact. Right leg dressing dry and intact wound vac intact. [place] 1 tab twice for pain. Lung sounds clear and diminished. Has harsh, loose nonproductive cough. O2 at 2 liters per nasal cannula. Appetite continues to be poor. taking fluids well.
--- NOTE | 2016-12-05 19:43 | NUR ---
Cared for pt.from 1529 to 1829.No changes.Had been repositioned.SP cath patent.
--- NOTE | 2016-12-06 04:42 | NUR ---
Significant Event: Pt drowsy this shift. Oriented to self/place. Can be forgetfull at times. Repositioned q 2 hours, open area on coccyx. Scrotum reddened. Needs nectar thick liquids, takes pills whole in applesause. Triple lumen picc to right upper arm with good blood return, hoang lumen sluggish. Suprapubic catheter with cloudy urine. Also has sore below cath site. No measurable output from wound vac. Follow up: Placement.
[2016-12-06 07:08] LABS: ANION GAP 9.4 (10.0-19.0); CALCIUM 7.6 mg/dL (8.5-10.5); CREATININE 1.8 mg/dL (0.6-1.3); PHOSPHORUS 2.7 mg/dL (2.5-4.9); POTASSIUM 3.4 mMol/L (3.7-5.1)
--- NOTE | 2016-12-06 11:59 | NUR ---
Phone call from Kelly at [facility] in [place] today at 0910. Kelly had a few questions regarding if patient had a PICC Line and if he had been tested for MRSA. I answered her questions and then she said they will likely be able to accept patient. She was going to look at the transportation schedule and get back to me on a time for tomorrow. I called Brooklyn, the English Faculty Member DON at [facility] at 1050 and informed her that the PICC Line will likely be pulled at discharge. She said that she needs to know all of the wound vac supplies before they can accept patient and that she had explained this to Kelly so she is not sure why Kelly said she will arrange transportation for tomorrow. Brooklyn also wanted to know if our [facility] nurses will want to do his dressing changes or if they will do them at [facility]. I spoke to Genaro the [facility] nurse and she said that [facility] will do the dressing changes three times a week and then patient will come to [place] once every two weeks to see Dr. March and [facility]. Genaro was writing out all the [facility] orders and I will fax those to Brooklyn at [phone]. I also called patient's on her cell at [phone] and let her know that [facility] in [place] will likely accept patient tomorrow. Audrey is in agreement with this placement. I asked her to bring a change of clothes for patient to have for tomorrow and she will do that this evening. I also informed her that she will need to take patient's wheelchair to [facility] tomorrow or Tuesday. She states patient uses o2 at night, but does not have a CPAP. I will check with RT to make certain he does not need o2 for the transport and whether or not a trendox needs to be done tonight bfore being transported to [facility]. No other needs at this time.
--- NOTE | 2016-12-06 13:54 | NUR ---
Significant Event: Pt c/o intermittent back/buttocks pain. norco given this am with some relief. repositioned frequently per his request. Total lift into recliner Aloe vesta applies to reddness on coccyx. Dressings changed to right foot and wound vac dressing by WOC nurse this am. PICC to right arm d/i. Continues on thickened liquids. Left stump intact with steristrips. forgetful. Possible dc to [facility] tomorrow. Try to wean O2 per order. Inc lrg bm x1. Follow up:
--- NOTE | 2016-12-06 14:29 | NUR ---
A-NUTRITION F/U PLANS BEING MADE FOR PT TO D/C TO A SNF. WOUND VAC TO R)ANKLE; L)AKA. LABS REVIEWED. MEDS: NOVOLOG ADJUSTED DIET RX: CONSISTENT CARB W/NECTAR THICK LIQUIDS. MAGIC CUP QD AND MIGHTY SHAKES BID. PO INTAKE BITES-100%; AVG IS 40%. VISITED W/PT AND PT STATES THAT HIS APPETITE IS LOUSY TODAY. HE IS DRINKING THE SUPPLEMENTS AND LIKES THEM. HE DID AGREE TO INCREASE MIGHTY SHAKES TO TID. D-AT NUTRITION RISK W/INADEQUATE ORAL INTAKE R/T ALTERED APPETITE AEB INTAKE RECORDS, WT LOSS, AND PT REPORT. I-CHANGE MIGHTY SHAKES FROM BID TO TID M/E-GOAL: PO INTAKE >/=50% BY DISCHARGE 1)F/U PO INTAKE, SUPPLEMENT, WT, AND POC IN 3-5 DAYS 2)ASSIST NEEDED
--- NOTE | 2016-12-06 16:25 | NUR ---
Multiple phone calls with assistant BRANNON Barahona at [facility] today to determine if they can get wound care supplies in by tomorrow or if patient will have to wait until Tuesday to transfer. Phone call from Mendy at [facility] at 1600 and she states that they are not able to get the supplies in until late tomorrow so they cannot accept patient until Tuesday. Mendy also states they would like [facility] to change the dressing and wound vac here before patient discharges on Tuesday. I also confirmed with Mendy that patient can keep Dr. Drake, he does not need to transfer his care to a [place] doctor. I also received a call from Adelaide with [facility] stating [place] will accept patient and Dr. Mcmahon will follow. I spoke to patient's Audrey at 1615 and told her that both [facility] and [facility] in [place] can accept. I explained that he will need to change his physician if he goes to [facility]. Audrey prefers that he goes to [facility] so he can keep his same doctor. I called Adelaide at [facility] and thanked her for her assistance, but family has decided on [facility]. I also notified charge nurse Елена Shelton APRN, and the [facility] department that patient is not able to transfer to [facility] in [place] until Tuesday. Will continue to follow and offer supports.
--- NOTE | 2016-12-07 05:03 | NUR ---
Pt. alert and oriented - forgetful at times. 2L of O2 but trying to wean down. Frequently turned and boosted - pt. will sometimes request turning. C/O bottom being sore. [place] given x1 this shift with relief. Slept well this shift. Full lift - 2 assist. WOC changes dressing on foot. PICC to R) arm with triple lumen - saline locked. [place] thickened liquids. L) Stump intact with steristrips. Chronic suprapubic catheter with mucous at times. Takes pills whole in applesauce. D/c to SNF on Tuesday. Cooperative with cares.
[2016-12-07 05:16] LABS: ALBUMIN 2.4 gm/dL (3.5-5.0); ANION GAP 10.1 (10.0-19.0); CALCIUM 9.3 mg/dL (8.5-10.5); CREATININE 1.8 mg/dL (0.6-1.3); PHOSPHORUS 2.9 mg/dL (2.5-4.9); POTASSIUM 4.1 mMol/L (3.7-5.1)
[2016-12-07 05:20] LABS: HEMATOCRIT 30.9 % (37.0-53.0); HEMOGLOBIN 9.6 g/dL (11.0-16.0)
--- NOTE | 2016-12-07 11:03 | NUR ---
Phone call placed to [facility] nurses to see when they can have patient ready for discharge tomorrow. Per Maddison they will see patient first thing tomorrow and plan on his care being done by 0900. Phone call placed to Mendy and/or Kelly at [facility] in [place] ([phone]) to confirm transport time. Per Mendy they will plan on picking patient up here tomorrow at 1100. Notified RANDOLPH Mendieta, patient's nurse, and charge nurse Cat. Packet is ready and ID screen is in the packet. Nurse to nurse number is [phone] and ask for the nurses station. Contacted , Audrey at [phone] and informed her of the time for discharge tomorrow. She gave permission for me to contact [facility] in [place] and provide them with her cell phone number so they can call her to arrange for the admission paperwork to be completed. Called Kelly at [facility] and gave her Audrey's number. Informed patient of the plan for tomorrow.
--- NOTE | 2016-12-07 11:24 | NUR ---
Diabetes center note Discussed with NOREEN Mcgraw, recommendations regarding insulin doses, as patient is preparing for dismissal tomorrow to [facility] in [place]. FBS's remain a little above target, so Елена will adjust Levemir doses to 26 untis in a.m. and 40 units in p.m., and continue the Novolog 15 units at meals. Елена will assess overall blood sugars on 12/08/16 and make adjustments accordingly.
--- NOTE | 2016-12-07 18:27 | NUR ---
Significant Event: Patient alert and oriented but forgetful. O2 at 1 l/nc with sats in the low 90's. Patient has an occasional productive cough of thich, yellow phelgm. L) above the knee amputation incision approximated with steri strips. Wound vac and dressing to R) foot intact. Suprapubic catheter patent and drains hazy, yellow urine with mucus with a total of 600 ml out for the shift. Up to the recliner this morning with the mechanical lift and back to bed after lunch. Repositioned q 2hrs. [place] 1 tab given at 1152 for c/o buttock pain with relief. PICC to his R) upper arm with the red lumen flushing well with good blood return and the hoang and white lumen is sluggish with no blood return. Accuchecks have been 161, 151 and 125 with 2 units of insulin given per sliding scale for breakfast and lunch. Levimer insulin morning dose increased to 26 units. Follow up: [facility].
--- NOTE | 2016-12-08 03:55 | NUR ---
Pt. alert - sometimes forgetful. VSS. 1L of O2 - trying to wean down. Frequently turned and boosted. Pain pills given for sore bottom. Did not sleep well tonight. Wound vac to R) foot with foot drop boot. Steristrips to L) stump that are dry and loose. Full lift. Daily weight. PICC to R) arm with triple lumen - only red one has GBR - saline locked. [place] thickened liquids. Pills whole in applesauce. Suprapubic catheter draining patent. ADA diet. Accuchecks ACHS. Moderate SS. Tele - no calls. WOC to come in at 0830 to change dressings before d/c to [facility] in [place] at 1100.
[2016-12-08 06:52] LABS: ALBUMIN 2.5 gm/dL (3.5-5.0); ANION GAP 10.3 (10.0-19.0); CALCIUM 9.3 mg/dL (8.5-10.5); CREATININE 1.9 mg/dL (0.6-1.3); PHOSPHORUS 3.6 mg/dL (2.5-4.9); POTASSIUM 4.3 mMol/L (3.7-5.1)
--- NOTE | 2016-12-08 10:20 | NUR ---
D: Pt a/o x3, forgetful at times. Full lift for transfers. Has a small open sore on coccyx and has open sores on right foot with maurice dressings as well as wound vac to right foot/ankle. Foot drop boot to right foot. PICC line removed prior to dc to right arm. O2 at night. [place] thickened liquids, ADA diet. Swallows pills whole with applesauce. Has a suprapubic catheter, has a sore around site, dressing in place to prevent rubbing. Inc of stool at times. Will dc to [facility] around 1100 today. Turn q 2-3 hrs. AKA to left leg, steristrips intact, healing well.
--- NOTE | 2016-12-08 17:17 | NUR ---
0930 Met with patient and this morning. Patient is ready to discharge to [facility] in [place]. Discharge orders were completed at [address] Rodriguez. Orders were faxed to [facility] at [phone] at 1045. No other discharge needs at this time.
[2016-12-22] MEDS ORDERED: CELEXA20 MG PO (16:01)
[2016-12-22] MEDS ORDERED: PROTONIX40 MG PO (16:02)
[2016-12-22] MEDS ORDERED: VITAMIN D-32000 UNI1 PO ×2 (16:03→16:04)
[2016-12-22] MEDS ORDERED: GLUCAGON 1 MG PE1 MG SUB-Q (16:08)
[2016-12-22] MEDS ORDERED: MILK OF MA400 MG/5 M PO (16:08)
[2016-12-22] MEDS ORDERED: DULCOLAX10 MG R (16:08)
[2016-12-22] MEDS ORDERED: GLUCOSE4 GM PO (16:09)
[2016-12-22] MEDS ORDERED: NITROSTAT0.4 MG SL (16:10)
[2016-12-22] MEDS ORDERED: ACETAMINOPHEN650 M1 (16:11)
[2016-12-22] MEDS ORDERED: NORCO 5-325 TA1 EACH (16:11)
[2016-12-22] MEDS ORDERED: PROVENTIL OR V6.7 GM (16:12)
[2016-12-22] MEDS ORDERED: COLACE100 MG PO (16:13)
== END 2016-12-08 11:50 | DRG 853 ==
LOC: GMED 11:42 → GICU 16:37 → GPCU 11-10 17:06 → GMSU 11-28 22:43
PROVIDERS: Emergency Medicine; Hospitalist; Internal Medicine; Internal Medicine Nephrology; Nurse Practitioner; Nurse Practitioner Family; Surgery Vascular Surgery; ADMIT Family Medicine
PROC: 0Y6D0Z3 Detachment at Left Upper Leg, Low, Open Approach (ICD-10-PCS; principal; 2016-11-02)
PROC: 0JBQ0ZZ Excision of Right Foot Subcutaneous Tissue and Fascia, Open Approach (ICD-10-PCS; principal; 2016-11-02)
PROC: 30233N1 Transfusion of Nonautologous Red Blood Cells into Peripheral Vein, Percutaneous Approach (ICD-10-PCS; 2016-11-05)
PROC: F00ZJWZ Instrumental Swallowing and Oral Function Assessment using Swallowing Equipment (ICD-10-PCS; 2016-11-06)
PROC: 047R3ZZ Dilation of Right Posterior Tibial Artery, Percutaneous Approach (ICD-10-PCS; 2016-11-09)
PROC: B40D1ZZ Plain Radiography of Aorta and Bilateral Lower Extremity Arteries using Low Osmolar Contrast (ICD-10-PCS; 2016-11-09)
PROC: 047P3ZZ Dilation of Right Anterior Tibial Artery, Percutaneous Approach (ICD-10-PCS; 2016-11-09)
PROC: B246ZZZ Ultrasonography of Right and Left Heart (ICD-10-PCS; 2016-12-03)
DX: A41.9 Sepsis, unspecified organism (principal); G93.41 Metabolic encephalopathy; J96.21 Acute and chronic respiratory failure with hypoxia; N17.0 Acute kidney failure with tubular necrosis; R65.21 Severe sepsis with septic shock; I50.33 Acute on chronic diastolic (congestive) heart failure; I96 Gangrene, not elsewhere classified; I13.0 Hypertensive heart and chronic kidney disease with heart failure and stage 1 through stage 4 chronic kidney disease, or unspecified chronic kidney disease; D62 Acute posthemorrhagic anemia; L97.919 Non-pressure chronic ulcer of unspecified part of right lower leg with unspecified severity; M86.9 Osteomyelitis, unspecified; N18.4 Chronic kidney disease, stage 4 (severe); M86.171 Other acute osteomyelitis, right ankle and foot; E11.22 Type 2 diabetes mellitus with diabetic chronic kidney disease; I25.10 Atherosclerotic heart disease of native coronary artery without angina pectoris; I87.2 Venous insufficiency (chronic) (peripheral); L97.514 Non-pressure chronic ulcer of other part of right foot with necrosis of bone; N31.9 Neuromuscular dysfunction of bladder, unspecified; R00.8 Other abnormalities of heart beat; E11.65 Type 2 diabetes mellitus with hyperglycemia
CPT/HCPCS: C1725; C1751; C1760; C1769; C1887; C9113; J0690; J0696; J1170; J1644; J1940; J2060; J2185; J2250; J2270; J2310; J2370; J2405; J2543; J2720; J2997; J3010; J3370; J7030; J7040; J7050; J7060; P9016; P9045; P9047

== ENCOUNTER → 2016-11-01 | Outpatient (CLI) | payer MEDICARE, MEDICAID ==
[~2016-11-01] MED LIST changes: +ACETAMINOPHEN650 M1; +CELEXA20 MG PO; +GLUCAGON 1 MG PE1 MG SUB-Q; +LEVOTHROID (SY25 MCG PO; +MOTRIN800 MG PO; +NITROSTAT0.4 MG SL; +NORCO 5-325 TA1 EACH; +PROTONIX40 MG PO; +PROVENTIL OR V6.7 GM
== END | disposition disaster alternative care site (69) ==
LOC: GAMB 11:18
DX: B99.9 Unspecified infectious disease (principal); M79.672 Pain in left foot; E11.9 Type 2 diabetes mellitus without complications; R53.83 Other fatigue; R53.81 Other malaise; R62.7 Adult failure to thrive; Z79.82 Long term (current) use of aspirin; Z79.4 Long term (current) use of insulin; Z79.899 Other long term (current) drug therapy
CPT/HCPCS: A0422; A0425; A0427